=== PATIENT | female | born 1935 | race American Indian/Alaskan Native ===

== ENCOUNTER 2017-10-09 17:08 | Inpatient (IN) | payer MEDICARE, OTHER ==
[2017-10-09] MEDS ORDERED: SUBLIMAZE IV ONE (17:31)
[2017-10-09] MEDS ORDERED: NACL 0.9% 500 ML 500 ML IV ONE (17:31)
--- NOTE | 2017-10-09 17:34 | Emergency Department Report ---
<IVANDAVID - Last Filed: 10/09/17 19:58> ED General Adult HPI - General Chief complaint: Multiple Trauma Stated complaint: DISLOCATED SHOULDER Time Seen by Provider: 10/09/17 17:30 Source: patient, family, EMS (ems notes not available at time of chart dictation), RN notes reviewed Limitations: Physical Limitation - History of Present Illness Initial comments: This is an 82-year-old female who is not known to this provider previously. Her primary care doctor is Dr. David Dobson She presents to the ER with a complaint of feeling dizzy, and then falling over. She thinks that her dizziness started at 3:00 but she is not sure. She described it as a sensation of "rolling over." Prior to the event, she denied headache, neck pain, chest pain, abdominal pain, shortness of breath. After the event, the patient reported inability to get up, secondary to severe left shoulder pain and left hip pain. The pain is both sharp, and does not radiate anywhere, increases with palpation and decreases with rest. Patient is accompanied by her granddaughter at this time. Apparently the patient is staying with a cousin. As per verbal report from EMS, patient had numerous bedbugs on her. Patient reports no sensation of dizziness while in the emergency room. -: Sudden Location: left, upper extremity, lower extremity Quality: aching, sharp Consistency: constant Improves with: rest Worsens with: movement Associated Symptoms: confusion, headaches, loss of appetite, malaise, weakness, other (dizzyness). denies: chest pain, cough, diaphoresis, fever/chills, nausea /vomiting, rash, seizure, shortness of breath, syncope - Related Data Home Medications Medication Instructions Recorded Confirmed Last Taken AtorvaSTATin [Lipitor] 40 mg PO DAILY 10/09/17 10/09/17 Unknown Celecoxib [celeBREX] 200 mg PO DAILY 10/09/17 10/09/17 Unknown Lisinopril [Zestril] 40 mg PO DAILY 10/09/17 10/09/17 Unknown glipiZIDE [Glipizide] 5 mg PO DAILY 10/09/17 10/09/17 Unknown Allergies Allergy/AdvReac Type Severity Reaction Status Date / Time No Known Allergies Allergy Unverified 01/24/14 19:47 ED Review of Systems ROS: Stated complaint: DISLOCATED SHOULDER Other details as noted in HPI Constitutional: malaise Eyes: denies: eye discharge ENT: denies: epistaxis Respiratory: denies: cough Cardiovascular: denies: chest pain, syncope Gastrointestinal: denies: abdominal pain Genitourinary: denies: dysuria Musculoskeletal: arthralgia, myalgia Skin: lesions Neurological: weakness, other (dizzyness) Psychiatric: anxiety ED Past Medical Hx - Past Medical History Hx Hypertension: Yes Hx Diabetes: Yes - Social History Smoking Status: Never Smoker Substance Use Type: None - Medications Home Medications: Home Medications Medication Instructions Recorded Confirmed Last Taken Type AtorvaSTATin [Lipitor] 40 mg PO DAILY 10/09/17 10/09/17 Unknown History Celecoxib [celeBREX] 200 mg PO DAILY 10/09/17 10/09/17 Unknown History Lisinopril [Zestril] 40 mg PO DAILY 10/09/17 10/09/17 Unknown History glipiZIDE [Glipizide] 5 mg PO DAILY 10/09/17 10/09/17 Unknown History ED Physical Exam - General Limitations: Physical Limitation General appearance: alert, in distress - Head Head exam: Present: atraumatic, normocephalic - Eye Eye exam: Present: normal appearance, EOMI. Absent: nystagmus - ENT ENT exam: Present: normal exam, normal orophraynx, mucous membranes moist, normal external ear exam - Neck Neck exam: Present: normal inspection, full ROM. Absent: tenderness, meningismus - Respiratory Respiratory exam: Present: normal lung sounds bilaterally. Absent: respiratory distress - Cardiovascular Cardiovascular Exam: Present: normal rhythm, tachycardia, normal heart sounds. Absent: systolic murmur, diastolic murmur, rubs, gallop - GI/Abdominal GI/Abdominal exam: Present: soft. Absent: distended, tenderness, guarding, rebound, rigid, pulsatile mass - Extremities Exam Extremities exam: Present: normal inspection, tenderness, other (there is left shoulder tenderness. There is left hip tenderness. 2+ pulses noted in the bilateral upper, lower extremities. The compartments are soft. The pelvis is stable. 5 out of 5 canvas marker strength in the bilateral upper extremities. Plantar and dorsiflexion intact in the bilateral lower extremities. Range of motion in the left shoulder, left leg limited secondary to pain.). Absent: full ROM, pedal edema, calf tenderness - Back Exam Back exam: Present: normal inspection. Absent: tenderness, paraspinal tenderness - Neurological Exam Neurological exam: Present: alert, oriented X3, CN II-XII intact, other ( Extraocular movements intact. Tongue midline. No facial droop. Facial sensation intact to light touch in the V1, V2, V3 distribution bilaterally. 5 and 5 strength in 4 extremities.. Sensation is intact to light touch in 4 extremities.). Absent: motor sensory deficit - Psychiatric Psychiatric exam: Present: normal affect, normal mood, anxious - Skin Skin exam: Present: warm ED Course Vital Signs 10/09/17 10/09/17 10/09/17 17:10 17:15 17:31 Temperature Pulse Rate Respiratory Rate Blood Pressure 159/99 159/99 O2 Sat by Pulse 92 91 93 Oximetry 10/09/17 10/09/17 10/09/17 17:39 17:45 18:00 Temperature 97.8 F Pulse Rate 104 H Respiratory Rate Blood Pressure 159/99 159/99 159/99 O2 Sat by Pulse 98 96 93 Oximetry 10/09/17 10/09/17 10/09/17 18:15 18:31 18:45 Temperature Pulse Rate Respiratory Rate Blood Pressure 175/106 175/106 175/106 O2 Sat by Pulse 97 93 89 Oximetry 10/09/17 10/09/17 10/09/17 19:01 19:15 19:26 Temperature Pulse Rate Respiratory Rate Blood Pressure 175/106 176/99 O2 Sat by Pulse 89 84 100 Oximetry 10/09/17 10/09/17 10/09/17 19:31 19:45 20:01 Temperature Pulse Rate 102 H Respiratory 19 Rate Blood Pressure 176/99 176/99 188/96 O2 Sat by Pulse 96 93 97 Oximetry 10/09/17 10/09/17 10/09/17 20:33 20:45 21:01 Temperature Pulse Rate 86 84 93 H Respiratory 16 16 20 Rate Blood Pressure 188/96 188/96 132/92 O2 Sat by Pulse 97 98 95 Oximetry 10/09/17 10/09/17 10/09/17 21:15 21:31 21:45 Temperature Pulse Rate 82 87 89 Respiratory 18 15 12 Rate Blood Pressure 188/96 128/89 128/89 O2 Sat by Pulse 98 98 99 Oximetry 10/09/17 10/09/17 10/09/17 22:00 22:15 22:30 Temperature Pulse Rate 85 84 83 Respiratory 16 16 10 L Rate Blood Pressure 128/89 128/89 128/89 O2 Sat by Pulse 100 97 100 Oximetry 10/09/17 10/09/17 10/09/17 22:45 23:01 23:15 Temperature Pulse Rate 77 74 70 Respiratory 23 16 18 Rate Blood Pressure 128/89 143/76 143/76 O2 Sat by Pulse 99 100 100 Oximetry 10/09/17 10/09/17 10/09/17 23:31 23:45 23:59 Temperature Pulse Rate 72 87 80 Respiratory 28 H 14 31 H Rate Blood Pressure 150/72 150/72 167/80 O2 Sat by Pulse 99 100 98 Oximetry 10/10/17 10/10/17 10/10/17 00:01 00:15 00:31 Temperature Pulse Rate 80 81 68 Respiratory 31 H 31 H 15 Rate Blood Pressure 167/80 167/80 165/73 O2 Sat by Pulse 100 100 92 Oximetry 10/10/17 10/10/17 10/10/17 00:45 01:00 01:15 Temperature Pulse Rate 79 77 83 Respiratory 30 H 27 H 26 H Rate Blood Pressure 165/73 139/61 139/61 O2 Sat by Pulse 98 99 100 Oximetry 10/10/17 10/10/17 10/10/17 01:31 01:45 02:01 Temperature Pulse Rate 82 80 79 Respiratory 23 16 22 Rate Blood Pressure 148/65 148/65 143/78 O2 Sat by Pulse 100 100 100 Oximetry 10/10/17 10/10/17 10/10/17 02:15 02:31 02:45 Temperature Pulse Rate 62 86 74 Respiratory 17 12 24 Rate Blood Pressure 143/78 180/72 180/72 O2 Sat by Pulse 100 100 100 Oximetry 10/10/17 10/10/17 10/10/17 03:01 03:15 03:30 Temperature Pulse Rate 80 79 86 Respiratory 30 H 24 29 H Rate Blood Pressure 139/49 139/49 154/65 O2 Sat by Pulse 100 98 Oximetry 10/10/17 10/10/17 10/10/17 03:45 04:01 04:15 Temperature Pulse Rate 84 77 81 Respiratory 25 H 27 H 19 Rate Blood Pressure 154/65 154/65 154/65 O2 Sat by Pulse 100 99 100 Oximetry - Reevaluation(s) Reevaluation #1: 10/09/17 18:28 Differential diagnosis, including but not limited to: Arrhythmia, structural cardiac disease, TIA, stroke, intracranial injury, cervical spine injury, pneumonia, urinary tract infection, orthopedic fracture, dislocation Assessment and plan: 82-year-old female who reports preceding dizziness and then fall. She has an NIH score of 0. She is therefore not a TPA candidate. We will obtain noncontrast CT scan of the brain and cervical spine. Plain films have demonstrated left proximal humerus left proximal femur fractures. She is distally neurovascularly intact. She does not appear to have other significant injuries. The left shoulder will be placed in a sling. The left leg will be minimally manipulated. Case was discussed with orthopedic surgery, Dr. Pina who agrees to follow in consultation. Laboratory studies, CT scan of the brain, cervical spine, EKG pending. Given she has no neurologic symptoms at this time, that she has an NIH score of 0 and is not expansion dizziness at this time, she does not require TPA, and also does not require emergent angiography. 10/09/17 19:33 Reevaluation #2: 10/09/17 18:30 Patient found to have a number of crawling insects on her that looked to be like bedbugs. Isolation precautions ordered. permethrin ordered. Reevaluation #3: 10/09/17 19:58 ct head c spine pending. labs --> ? hyperkalemia, maybe hemolyzed. hyponatremia and hypomagnesemia also noted. will replete. likely hypovolemic hyponatemis. repeat chem 7 pending. care transferred to Dr Junior Saha to follow up on ekg, BMP and ct head c spine. if negative would admit to the medical service orthopedics on board would give aspirin if ct head c spine negative ED Medical Decision Making - Lab Data Result diagrams: 10/09/17 19:09 10/09/17 19:09 Vital Signs 10/09/17 17:39 Temperature 97.8 F Pulse Rate 104 H Blood Pressure 159/99 O2 Sat by Pulse 98 Oximetry - Radiology Data Radiology results: image reviewed interpreted by me: X-ray of the chest is rotated, shows left proximal humerus fracture, DJD, elevated left hemidiaphragm X-ray of the pelvis shows no pelvic fracture. There is a left proximal femur fracture. DJD is noted. X-ray of the humerus again redemonstrates left proximal humerus fracture. X-ray of the elbow shows DJD but no obvious injury. X-ray of the femur demonstrates left proximal femur fracture. DJD is noted. X-ray of the knee demonstrates orthopedic hardware, otherwise no acute disease. Critical care attestation.: If time is entered above; I have spent that time in minutes in the direct care of this critically ill patient, excluding procedure time. ED Disposition Clinical Impression: Left humeral fracture, Femur fracture, left, Hyponatremia, Hypomagnesemia, UTI (urinary tract infection) Disposition: OP ADMIT IP TO THIS HOSP Is pt being admited?: Yes Condition: Good <CHASE SAHA - Last Filed: 10/10/17 06:19> ED Medical Decision Making - Lab Data Result diagrams: 10/09/17 19:09 10/09/17 21:25 - Medical Decision Making I received this patient in sign out from Dr. Oh. He wanted me to follow- up on the CT imaging prior to admitting the patient for her orthopedic injuries. CT head was unremarkable. CT cervical spine was nondiagnostic. According to radiology, they need a better scan to be a read the cervical spine. The imaging was done on the 4 slice scanner, and started a 64 slice scanner. Patient is currently being decontaminated for bed bugs. Once she is clean, she will go for her CT cervical spine. The hospitalist has agreed to admit the patient in the meantime. ED Disposition Is pt being admited?: Yes Does the pt Need Aspirin: No
[2017-10-09] MEDS ORDERED: ACTICIN TP ONE (17:53)
[2017-10-09 19:15] LABS: Basophils % (Auto) 0.2 % (0.0-1.8); Eosinophils % (Auto) 0.3 % (0.0-4.3); Hematocrit 32.8 % (30.3-42.9); Hemoglobin 10.6 gm/dl (10.1-14.3); Mean Corpuscular HGB Conc 32 % (30-34); Mean Corpuscular Hemoglobin 28 pg (28-32); Mean Corpuscular Volume 87 fl (79-97); Monocytes # (Auto) 0.7 K/mm3 (0.0-0.8); Platelet Count 218 K/mm3 (140-440); Red Blood Count 3.77 M/mm3 (3.65-5.03); Red Cell Distribution Width 13.9 % (13.2-15.2)
[2017-10-09 19:27] LABS: INR 0.88 (0.87-1.13)
[2017-10-09 19:28] LABS: Partial Thromboplastin Time 30.4 Sec. (24.2-36.6)
[2017-10-09 19:30] LABS: Bacteria,Urine 1+ /HPF (Negative); Mucus,Urine FEW /HPF
[2017-10-09] MEDS ORDERED: MAGNESIUM SULFATE 2GM/50ML 2 GM/50 ML BAG IV ONE (19:46)
[2017-10-09 19:56] LABS: Alanine Aminotransferase TNR units/L (7-56)
--- NOTE | 2017-10-09 19:59 | XRay Report ---
FINAL REPORT PROCEDURE: XR SHOULDER 2+V LT TECHNIQUE: LEFT shoulder radiographs including AP and transscapular views. CPT 16848 HISTORY: Trauma; left shoulder pain. COMPARISON: No prior studies are available for comparison. FINDINGS: Fracture (s) and/or Dislocation(s): Posttraumatic comminuted fracture of the proximal humerus. There is mild medial displacement of the humeral shaft in relation to the humeral head with moderate overriding of fracture fragments. Joint space(s): There is moderate widening of the joint space. Narrowing and osteophytes of the acromioclavicular joint with subacromial spurring. Subchondral cystic changes of the greater tuberosity. Soft tissues: Normal . Bone mineralization: Moderate osteopenia. Foreign bodies: None . Other: Cardiomegaly. Aortic calcification. Left lower lobe linear opacities. Blunting of left costophrenic angle. IMPRESSION: Posttraumatic fracture of the left proximal humerus, with moderate widening of the joint space. Consider could be related to positioning or pseudosubluxation from hemarthrosis, difficult to completely exclude subluxation/dislocation at the glenohumeral joint, although on transscapular Y-view at least a portion of the humeral head appears to be anatomically located. Recommend attention on followup radiographs or even CT scan depending on clinical concern. Cardiomegaly. Left lower lobe linear opacities. Blunting of left costophrenic angle. Consider correlation with chest radiograph.
[2017-10-09 20:01] LABS: Bilirubin,Urine Negative (Negative); Blood,Urine Negative (Negative); Color,Urine Yellow (Yellow); Protein,Urine <15 mg/dL mg/dL (Negative); Urobilinogen,Urine < 2.0 mg/dL (<2.0)
--- NOTE | 2017-10-09 20:01 | XRay Report ---
FINAL REPORT PROCEDURE: XR HUMERUS 2+V LT TECHNIQUE: LEFT humerus radiographs, AP and lateral views. HISTORY: Trauma; left shoulder pain. COMPARISON: Left shoulder radiographs dated same day and time. FINDINGS: Fracture (s) and/or Dislocation(s): Posttraumatic comminuted fracture of the proximal humerus. There is mild medial displacement of the humeral shaft in relation to the humeral head with moderate overriding of fracture fragments. Joint space(s): There is moderate widening of the joint space. Narrowing and osteophytes at the elbow joint with small subchondral cystic changes. Tiny enthesophyte of the olecranon. Degenerative changes of the thoracic spine. Narrowing and osteophytes of the acromioclavicular joint with subacromial spurring. Subchondral cystic changes of the greater tuberosity. Soft tissues: Normal . Bone mineralization: Moderate osteopenia. Foreign bodies: None . Other: Cardiomegaly. Aortic calcification. Left lower lobe linear opacities. Blunting of left costophrenic angle. IMPRESSION: Posttraumatic fracture of the left proximal humerus, with moderate widening of the joint space. Consider could be related to positioning or pseudosubluxation from hemarthrosis, difficult to completely exclude subluxation/dislocation at the glenohumeral joint, although on transscapular Y-view at least a portion of the humeral head appears to be anatomically located. Recommend attention on followup radiographs or even CT scan depending on clinical concern. Cardiomegaly. Left lower lobe linear opacities. Blunting of left costophrenic angle. Consider correlation with chest radiograph.
[2017-10-09] MEDS ORDERED: KEFLEX PO ONE (20:04)
--- NOTE | 2017-10-09 20:13 | XRay Report ---
FINAL REPORT EXAM: XR ELBOW 2V LT HISTORY: Trauma; left elbow pain TECHNIQUE: Three views left elbow Comparison: None FINDINGS: Global osteopenia. No discrete radial head fracture. There is an irregular 1.4 x 1.0 centimeter well corticated bony density along the medial condyle. Degenerative changes of the medial and lateral left elbow with significant soft tissue reticulation. Lateral film is oblique. No definite joint effusion. IMPRESSION: 1.4 x 1.0 centimeter well corticated bony density along the medial humeral condyle. Atypical appearance for an avulsion fracture. Degenerative changes throughout the elbow. Recommend cross-sectional imaging.
--- NOTE | 2017-10-09 20:14 | XRay Report ---
FINAL REPORT EXAM: XR FEMUR 2+V LT HISTORY: Trauma; left femur pain TECHNIQUE: Four views left femur Comparison: Pelvis same day FINDINGS: There is a left femoral neck fracture with approximately 2.7 centimeter foreshortening of the left femoral length. Left knee prosthesis. Osteopenic bones. No dislocation. IMPRESSION: Left femoral neck fracture with approximately 2.7 centimeter foreshortening. No dislocation. Left knee prosthesis.
--- NOTE | 2017-10-09 20:15 | XRay Report ---
FINAL REPORT EXAM: XR KNEE 1-2V LT HISTORY: Trauma; left knee pain TECHNIQUE: Two views left knee Comparison: None FINDINGS: Global osteopenia. Left knee total joint prosthesis with patellar resurfacing. Mild soft tissue reticulation. No suprapatellar bursal effusion. No hardware failure. No acute fracture. IMPRESSION: Left knee prosthesis. No fracture.
--- NOTE | 2017-10-09 20:18 | XRay Report ---
FINAL REPORT EXAM: XR PELVIS 1-2V HISTORY: Trauma; hip pain TECHNIQUE: AP pelvis Comparison: None FINDINGS: There is a transverse left femoral neck fracture with approximately 2.7 centimeters of foreshortening. Femoral head is normally located. There is no disruption of the bony pelvic ring. Stool ball obscures the left inferior pubic ramus. Posterior sacrum is obscured by bowel gas. Patient is osteopenic. There is mild degenerative change of the right hip joint. IMPRESSION: Transverse left femoral neck fracture with approximately 2.7 centimeters of foreshortening. Osteopenia with obscured left inferior pubic ramus and sacrum, incompletely evaluated.
--- NOTE | 2017-10-09 20:22 | XRay Report ---
FINAL REPORT EXAM: XR CHEST 1V AP HISTORY: Trauma; chest pain TECHNIQUE: Frontal chest x-ray Comparison: None FINDINGS: Low lung volumes. Enlarged heart with left ventricular configuration. Patient is rotated to the left. Left basal consolidation. Bones are osteopenic. Left pleural effusion may be present. Possible nondisplaced left lateral 2nd rib fracture and left posterior 4th rib fracture, incompletely assessed. No definite pneumothorax. Probable underlying emphysema. Known left humeral head and neck fracture. IMPRESSION: Rotated exam. Known comminuted left humeral head and neck fracture. Possible nondisplaced left lateral 2nd rib fracture and left posterior 4th rib fracture. Left basal consolidation and effusion. Possible right posterior 1st rib fracture. Patient is rotated and the bones are osteopenic. Recommend CTA chest with aortic protocol to further evaluate. Based on the previous plain films and the degree of trauma, consider running the CT chest, abdomen, and pelvis at the same time for multi trauma.
[2017-10-09 20:47] LABS: Blood Urea Nitrogen TNR mg/dL (7-17)
[2017-10-09 20:48] LABS: BUN/Creatinine Ratio TNR; Calcium TNR mg/dL (8.4-10.2)
[2017-10-09 20:49] LABS: Albumin TNR g/dL (3.9-5)
[2017-10-09 20:50] LABS: Hemolysis Index TNR
--- NOTE | 2017-10-09 21:45 | Cat Scan Report ---
FINAL REPORT PROCEDURE: CT HEAD/BRAIN WO CON TECHNIQUE: Computerized tomography of the head was performed without contrast material. HISTORY: Trauma COMPARISON: No prior studies are available for comparison. FINDINGS: Grossly limited study due to patient's inability to cooperate. Skull and scalp: Normal. Paranasal sinuses: Normal. Ventricles and subarachnoid spaces: Are prominent consistent with cerebral atrophy. Cerebrum: An old lacunar infarct is noted in the right basal ganglia. There are no obvious intra-axial or extra-axial fluid collections or mass effect. Moderate degree bilateral periventricular nonspecific white matter hypodensity is noted most likely representing chronic microangiopathy. Cerebellum and brainstem: No evidence of hemorrhage, acute infarction or mass. Vasculature: Normal. Comments: None. IMPRESSION: Grossly limited study. No obvious acute intracranial abnormality. Old lacunar infarct right basal ganglia.
--- NOTE | 2017-10-09 21:47 | Cat Scan Report ---
FINAL REPORT PROCEDURE: CT CERVICAL SPINE WO CON TECHNIQUE: Computerized tomography of the cervical spine was performed from the skull base to T1 without contrast material. HISTORY: trauma COMPARISON: No prior studies are available for comparison. FINDINGS: This is a nondiagnostic study. This study needs to be repeated. IMPRESSION: Nondiagnostic study..
[2017-10-09 21:55] LABS: BUN/Creatinine Ratio 16; Blood Urea Nitrogen 11 mg/dL (7-17); Calcium 9.3 mg/dL (8.4-10.2); Hemolysis Index 1
[2017-10-09] MEDS ORDERED: DILAUDID IV ONE (22:28)
[2017-10-10] MEDS ORDERED: D50W (25GM) Syringe IV PRN (01:09)
[2017-10-10] MEDS ORDERED: TYLENOL PO PRN (01:11)
[2017-10-10] MEDS ORDERED: ZOFRAN IV PRN (01:11)
[2017-10-10] MEDS ORDERED: HumuLIN R ONE (07:46)
[2017-10-10] MEDS: HumuLIN R SUB-Q SCH ×3 (07:54→18:21)
--- NOTE | 2017-10-10 08:08 | History and Physical Report ---
CHIEF COMPLAINT: Pain on the left side of the body. Other complaint includes fall. HISTORY OF PRESENTING ILLNESS: The patient is an 82-year-old female who was noted to have felt dizzy and fell. The patient said she had a sensation of rollover and then fell. There was no prior history of chest pain before the fall. No prior history of shortness of breath, fever or chills and then the patient had problem getting up and has pain in the left shoulder area, left hip joint area and left upper extremity area. The patient denied history of dizziness prior to the fall. PAST MEDICAL HISTORY: Pertinent for hypertension, diabetes mellitus. PAST SURGICAL HISTORY: Unremarkable. FAMILY HISTORY: Family history is noncontributory. SOCIAL HISTORY: The patient does not smoke, does not drink alcohol and does not use illicit drugs. MEDICATIONS: The patient is on Lipitor 40 mg by mouth daily, Celebrex 200 mg by mouth daily, lisinopril 40 mg by mouth daily, glipizide 5 mg by mouth daily. ALLERGIES: There are no known drug allergies. REVIEW OF SYSTEMS: CONSTITUTIONAL: There is no fever, no chills, no diaphoresis. HEENT: There is no headache or sore throat. CARDIOVASCULAR SYSTEM: There is no chest pain or orthopnea. RESPIRATORY SYSTEM: There is no shortness of breath or cough. GASTROINTESTINAL SYSTEM: There is no nausea, no vomiting, no abdominal pain, diarrhea or constipation. NEUROLOGICAL SYSTEM: There is no numbness, no dizziness, no altered mental status. MUSCULOSKELETAL SYSTEM: There is pain in the left upper extremity and left lower extremity areas. There is no joint swelling. DERMATOLOGICAL SYSTEM: There is no skin rash or itching. GENITOURINARY SYSTEM: There is no dysuria, hematuria or flank pain. Rest of system review is normal. PHYSICAL EXAMINATION: GENERAL: At the time of exam, the patient was found to be alert, oriented to person and place, and not in acute distress. VITAL SIGNS: At the initial time of presentation shows temperature of 97.8 degrees Fahrenheit, pulse of 104, blood pressure 159/99 with respiratory rate of 16 and O2 sat of 98% on room air. HEENT: Show pupils to be equal, round, reactive to light and accommodating. Extraocular muscles are intact. NECK: Neck is supple with no JVD or carotid bruit. CARDIOVASCULAR SYSTEM: Show normal first and second heart sounds with no gallops or murmurs. RESPIRATORY SYSTEM: Show good air entry on both sides of the lungs with no abnormal breath sounds. GASTROINTESTINAL SYSTEM: Show abdomen to be full, soft, nontender with no organomegaly or rigidity. NEUROLOGIC: Neuro exam shows no focal deficit. MUSCULOSKELETAL SYSTEM: Show tenderness in the left upper extremity area and the left hip joint area. There is also tenderness in the left lateral chest wall area. DERMATOLOGICAL SYSTEM: Show no skin rash. GENITOURINARY SYSTEM: Shows no costovertebral angle tenderness. PERTINENT LABORATORY AND IMAGING STUDIES: The patient had x-ray of the pelvis done that shows transverse left femoral neck fracture with approximately 2.7 cm of foreshortening. There is finding of osteopenia with obscured left inferior pubic ramus and sacrum, incompletely evaluated. The patient also had x-ray of the elbow done that shows a 1.4 x 1.0 cm ____ bone density along the medial humeral condyle and the radiologist say that typical appearance for an avulsion fracture is noted. Degenerative changes throughout the elbow were seen. The patient also had chest x-ray done. The chest x-ray shows known comminuted left humeral head and neck fracture. There is possibly nondisplaced left lateral second rib fracture and left posterior fourth rib fracture. There is finding of left basilar consolidation and effusions and possible right posterior first rib fracture was noted. The patient had a CT of the head done and CT of the head shows no obvious acute intracranial abnormality, but there is finding of old lacunar infarct in the right basal ganglia. Also the patient has CT of the cervical spine done, which the radiologist said was not a good study and reported that a repeat study be done because of positioning of the patient. DIAGNOSES: 1. Multiple fractures involving the left femur and left humeral bone and also left second and fourth rib fracture and also possible right first rib fracture. 2. Urinary tract infection. 3. Dizziness. PLAN: 1. The patient will be admitted to medical/surgical floor. 2. The patient will be on Accu-Chek q. 6 hours followed by low-dose sliding scale coverage using regular insulin. 3. The patient will continue orthopedic surgical consult with Dr. Cesar Pina as requested by the Emergency Room doctor. 4. The patient will be n.p.o. until reviewed by the orthopedic surgeon this morning. 5. The patient will be on IV ceftriaxone 1 g daily for treatment of UTI. 6. The patient will be on IV morphine 2 mg every 4 hours as needed for pain and IV Zofran 4 mg every 8 hours as needed for nausea or vomiting. 7. The patient will remain on contact precaution because of suspicious for bedbug. 8. The patient's home medications will be reconciled and started appropriately when patient starts taking medications by mouth. JOB# [id number] OCN/NTS
--- NOTE | 2017-10-10 08:25 | Cat Scan Report ---
FINAL REPORT EXAM: CT CERVICAL SPINE WO CON HISTORY: trauma TECHNIQUE: CT imaging is acquired through the cervical spine without contrast. Transaxial, and coronal reformations are provided. PRIORS: 10/09/2017 FINDINGS: Diffuse demineralization. Evaluation is compromised by curvature of the cervical spine. Diffuse demineralization. Atlanto dens interval in the odontoid process appear intact no displaced fractures identified. There is extensive sequela of disc degeneration including intervertebral disc space narrowing and endplate remodeling and spondylosis. Left worse than right multilevel facet arthropathy. Enlarged thyroid gland with left-sided 11 millimeter nodule. Carotid calcifications are noted. Biapical pulmonary scarring. IMPRESSION: No acute cervical spine fracture identified. Sensitivity of fracture detection is decreased by chronic cervical spine curvature, demineralization and extensive degenerative findings.Correlate with physical exam and follow up as warranted.
[2017-10-10 11:00] LABS: BUN/Creatinine Ratio 23; Blood Urea Nitrogen 14 mg/dL (7-17); Calcium 8.8 mg/dL (8.4-10.2); Hemolysis Index 33
--- NOTE | 2017-10-10 11:31 | Event Note ---
Date: 10/10/17 Patient fell sustained multiple fractures. Will obtain Echo, put on remote Tele. She also has consolidation on CXR. Will treat for possible pneumonia.Obtain blood cultures, iv Antibiotics
[2017-10-10] MEDS: MORPHINE IV PRN (13:01)
[2017-10-10] MEDS: ROCEPHIN/NS 1 GM/50 ML 1 GM/50 ML BAG IV SCH (13:04)
[2017-10-10] MEDS: LEVAQUIN 750MG/150ML 750 MG/150 ML BAG IV SCH (14:01)
[2017-10-10] MEDS: NACL 0.9% 1000 ML 1,000 ML IV SCH (14:01)
--- NOTE | 2017-10-10 14:59 | Anesthesia Consultation ---
Anesthesia Consult and Med Hx Date of service: 10/10/17 - Airway Anesthetic Teeth Evaluation: Poor ROM Head & Neck: Adequate Mental/Hyoid Distance: Adequate Mallampati Class: Class I Intubation Access Assessment: Good - Pulmonary Exam CTA: Yes (diminished bilateral) - Cardiac Exam Anesthetic Concerns: irregular - Pre-Operative Health Status ASA Pre-Surgery Classification: ASA3 Proposed Anesthetic Plan: Epidural, Spinal - Pre-Anesthesia Comment Pre-Anesthesia Comments: Admitted for Fall, sustained multiple fractures. Left humerus, Left femur, and ribs. EKG 10/09 SR with multiple PACS. Echo 10/10 pending results. Contact precations, bedbugs - Pulmonary Hx Smoking: Yes (Quit 6 years ago, 50+ year history ) COPD: Yes (probable emphysema per CXR ) Hx Pneumonia: Yes (left basal consolidation and effusion per CXR ) - Cardiovascular System Hx Hypertension: Yes - Gastrointestinal Hx Gastroesophageal Reflux Disease: Yes - Endocrine Hx Non-Insulin Dependent Diabetes: Yes
[2017-10-10] MEDS: ZESTRIL PO SCH (16:36)
[2017-10-11] MEDS: HumuLIN R SUB-Q SCH ×4 (00:37→23:43)
--- NOTE | 2017-10-11 00:48 | Progress Note ---
Subjective Date of service: 10/11/17 Principal diagnosis: Fracture of Hip and Humerus Interval history: Pt evaluated by attending anesthesia physician. Would not recommend spinal due to signifigant smoking hx. Pt does not have a cardiac clearance for evaluation of pulmonary HTN, Aortic valve disease, or EF. Would rec. General Anesthesia to better control BP and avoid hypotension. Spinal anesthesia would drop SVR and BP and would not allow forward flow in the case of poor EF or aortic valve disease. Smokers tend to have hx of PVD and Aortic calification. Post op pain control with IV meds. Ok to proceed without cardiac clearance but would avoid triggers for hypotension , tachycardia. Maintain SVR Objective - Constitutional Vitals: Vital Signs - 12hr 10/10/17 10/10/17 10/10/17 14:00 14:17 20:27 Temperature 98.3 F 97.5 F L Pulse Rate 89 89 67 Respiratory 18 20 Rate Blood Pressure 165/70 138/52 O2 Sat by Pulse 100 100 Oximetry - Labs CBC & Chem 7: 10/09/17 19:09 10/10/17 10:18 Labs: Abnormal lab results 10/10/17 10/10/17 10/10/17 Range/Units 07:25 10:18 12:08 Sodium 128 L (137-145) mmol/L Chloride 93.2 L (98-107) mmol/L Creatinine 0.6 L (0.7-1.2) mg/dL Glucose 275 H (65-100) mg/dL POC Glucose 241 H 304 H (70-105) 10/10/17 10/11/17 Range/Units 17:08 00:28 Sodium (137-145) mmol/L Chloride (98-107) mmol/L Creatinine (0.7-1.2) mg/dL Glucose (65-100) mg/dL POC Glucose 263 H 261 H (70-105)
[2017-10-11 04:55] LABS: Basophils % (Auto) 0.1 % (0.0-1.8); Eosinophils % (Auto) 0.4 % (0.0-4.3); Hemoglobin 8.6 gm/dl (10.1-14.3); Lymphocytes # (Auto) 1.1 K/mm3 (1.2-5.4); Mean Corpuscular HGB Conc 33 % (30-34); Mean Corpuscular Hemoglobin 28 pg (28-32); Mean Corpuscular Volume 87 fl (79-97); Monocytes # (Auto) 0.7 K/mm3 (0.0-0.8); Platelet Count 170 K/mm3 (140-440); Red Blood Count 3.05 M/mm3 (3.65-5.03); Red Cell Distribution Width 13.6 % (13.2-15.2)
[2017-10-11 05:06] LABS: BUN/Creatinine Ratio 21; Blood Urea Nitrogen 15 mg/dL (7-17); Calcium 8.7 mg/dL (8.4-10.2); Hemolysis Index 1
[2017-10-11 05:08] LABS: INR 1.06 (0.87-1.13)
[2017-10-11 05:42] LABS: Hematocrit 28.9 % (30.3-42.9)
--- NOTE | 2017-10-11 08:46 | Progress Note ---
Assessment and Plan Assessment and plan: Fall with multiple fractures For surgery today Fracture left femur neck Fracture left proximal humerus rib fractures Hyponatremia. Sodium 127. Obtain Urine Osm, Urine lytes, serum Osm. Consult Nephro Diabetes mellitus type 2. Check fingerstick Qac and hs Hypertension. Monitor BP Hyperlipidemia Bed bugs. On contact isolation For surgery today Discussed with Grand daughter History Interval history: Patient fell, sustained multiple fractures, pain left shoulder Hospitalist Physical - Physical exam Narrative exam: GEN:Not in acute distress, HEENT: Normocephalic, atraumatic, Neck: supple, No JVD Lungs:Clear to auscultation bilaterally, no crackles, no wheeze Heart:S1 and S2 reg, no murmurs, rubs or gallop Abd:soft, non tender, non-distended, bowel sounds present Ext: Tender left shoulder, left arm, bruise over left arm, left arm in sling, no lubbing or cyanosis, tender left hip, abrasion/ulcer left knee Neuro:Awake,alert, no focal neurological signs Psych: Normal mood - Constitutional Vitals: Temp Pulse Resp BP Pulse Ox 97.9 F 96 H 20 113/63 100 10/11/17 08:12 10/11/17 08:13 10/11/17 08:12 10/11/17 08:13 10/11/17 08:13 Results - Labs CBC & Chem 7: 10/12/17 05:20 10/12/17 05:20 Labs: Laboratory Last Values WBC 10.1 K/mm3 (4.5-11.0) 10/11/17 04:35 RBC 3.05 M/mm3 (3.65-5.03) L 10/11/17 04:35 Hgb 8.6 gm/dl (10.1-14.3) L 10/11/17 04:35 Hct 28.9 % (30.3-42.9) L 10/11/17 04:35 MCV 87 fl (79-97) 10/11/17 04:35 MCH 28 pg (28-32) 10/11/17 04:35 MCHC 33 % (30-34) 10/11/17 04:35 RDW 13.6 % (13.2-15.2) 10/11/17 04:35 Plt Count 170 K/mm3 (140-440) 10/11/17 04:35 Lymph % (Auto) 11.0 % (13.4-35.0) L 10/11/17 04:35 [place] % (Auto) 7.0 % (0.0-7.3) 10/11/17 04:35 Eos % (Auto) 0.4 % (0.0-4.3) 10/11/17 04:35 Baso % (Auto) 0.1 % (0.0-1.8) 10/11/17 04:35 Lymph # 1.1 K/mm3 (1.2-5.4) L 10/11/17 04:35 [place] # 0.7 K/mm3 (0.0-0.8) 10/11/17 04:35 Eos # 0.0 K/mm3 (0.0-0.4) 10/11/17 04:35 Baso # 0.0 K/mm3 (0.0-0.1) 10/11/17 04:35 Seg Neutrophils % 81.5 % (40.0-70.0) H 10/11/17 04:35 Seg Neutrophils # 8.2 K/mm3 (1.8-7.7) H 10/11/17 04:35 PT 14.4 Sec. (12.2-14.9) 10/11/17 04:35 INR 1.06 (0.87-1.13) 10/11/17 04:35 APTT 30.4 Sec. (24.2-36.6) 10/09/17 19:09 Sodium 127 mmol/L (137-145) L 10/11/17 04:35 Potassium 4.6 mmol/L (3.6-5.0) 10/11/17 04:35 Chloride 94.3 mmol/L (98-107) L 10/11/17 04:35 Carbon Dioxide 21 mmol/L (22-30) L 10/11/17 04:35 Anion Gap 16 mmol/L 10/11/17 04:35 BUN 15 mg/dL (7-17) 10/11/17 04:35 Creatinine 0.7 mg/dL (0.7-1.2) 10/11/17 04:35 Estimated GFR > 60 ml/min 10/11/17 04:35 BUN/Creatinine Ratio 21 % 10/11/17 04:35 Glucose 194 mg/dL (65-100) H 10/11/17 04:35 POC Glucose 205 (70-105) H 10/11/17 06:08 Calcium 8.7 mg/dL (8.4-10.2) 10/11/17 04:35 Magnesium 1.80 mg/dL (1.7-2.3) 10/10/17 10:11 Total Bilirubin TNR 10/09/17 19:09 AST TNR 10/09/17 19:09 ALT TNR 10/09/17 19:09 Alkaline Phosphatase TNR 10/09/17 19:09 Total Creatine Kinase 138 units/L (30-135) H 10/09/17 19:09 Troponin T TNR 10/09/17 19:09 Total Protein TNR 10/09/17 19:09 Albumin TNR 10/09/17 19:09 Albumin/Globulin Ratio TNR 10/09/17 19:09 Urine Color Yellow (Yellow) 10/09/17 19:09 Urine Turbidity Clear (Clear) 10/09/17 19:09 Urine pH 7.0 (5.0-7.0) 10/09/17 19:09 Ur Specific [place] 1.005 (1.003-1.030) 10/09/17 19:09 Urine Protein <15 mg/dl mg/dL (Negative) 10/09/17 19:09 Urine Glucose (UA) Negative mg/dL (Negative) 10/09/17 19:09 Urine Ketones Negative mg/dL (Negative) 10/09/17 19:09 Urine Blood Negative (Negative) 10/09/17 19:09 Urine Nitrite Negative (Negative) 10/09/17 19:09 Ur Reducing Substances Not Reportable 10/09/17 19:09 Urine Bilirubin Negative (Negative) 10/09/17 19:09 Urine Ictotest Not Reportable 10/09/17 19:09 Urine Urobilinogen < 2.0 mg/dL (<2.0) 10/09/17 19:09 Ur Leukocyte Esterase Small (Negative) 10/09/17 19:09 Urine WBC (Auto) 41.0 /HPF (0.0-6.0) H 10/09/17 19:09 Urine RBC (Auto) 1.0 /HPF (0.0-6.0) 10/09/17 19:09 U Epithel Cells (Auto) 4.0 /HPF (0-13.0) 10/09/17 19:09 Urine Bacteria (Auto) 1+ /HPF (Negative) 10/09/17 19:09 Urine Mucus Few /HPF 10/09/17 19:09 Plasma/Serum Alcohol < 0.01 % (0-0.07) 10/09/17 21:25 C. difficile Toxin A&B Negative (Negative) 10/09/17 Unknown
[2017-10-11] MEDS: MORPHINE IV PRN (09:04)
[2017-10-11] MEDS ORDERED: TORADOL ONE (09:21)
[2017-10-11] MEDS ORDERED: MORPHINE ONE (09:21)
[2017-10-11] MEDS ORDERED: MARCAINE 0.5% 30 ML INFILTRATI ONE (09:21)
[2017-10-11] MEDS ORDERED: TRANEXAMIC ACID ONE (09:21)
[2017-10-11] MEDS ORDERED: NACL 0.9% 250ML 250 ML ONE (09:21)
[2017-10-11] MEDS ORDERED: NEOSPORIN GU IR ONE (09:22)
[2017-10-11] MEDS: ROCEPHIN/NS 1 GM/50 ML 1 GM/50 ML BAG IV SCH (10:32)
[2017-10-11] MEDS: ZESTRIL PO SCH (10:51)
[2017-10-11] MEDS ORDERED: DIPRIVAN 10 MG/ML IV ONE (11:04)
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
[2017-10-11] MEDS ORDERED: DILAUDID ONE (13:21)
[2017-10-11] MEDS ORDERED: LOPRESSOR IV ONE (13:21)
[2017-10-11] MEDS ORDERED: ZOFRAN ONE ×2 (13:24→18:15)
[2017-10-11] MEDS ORDERED: DECADRON ONE (13:24)
[2017-10-11] MEDS ORDERED: NACL 0.9% 1000 ML 1,000 ML ONE (14:26)
[2017-10-11] MEDS ORDERED: XYLOCAINE MPF 2% ONE (15:00)
[2017-10-11] MEDS ORDERED: PROVENTIL IH PRN (15:10)
[2017-10-11] MEDS ORDERED: DULCOLAX PR PRN (17:59)
[2017-10-11] MEDS ORDERED: PERCOCET 5/325 PO PRN (17:59)
[2017-10-11] MEDS ORDERED: MILK OF MAGNESIA PO PRN (17:59)
[2017-10-11] MEDS ORDERED: NORCO 5/325 PO PRN (17:59)
[2017-10-11] MEDS ORDERED: SODIUM CHLORIDE FLUSH SYRINGE 10 ML IV SCH (18:00)
[2017-10-11] MEDS ORDERED: NEO SYNEPHRINE/NS Syringe(OR USE) IV ONE (18:12)
--- NOTE | 2017-10-11 18:13 | Procedure Note ---
Date of procedure: 10/11/17 Pre-op diagnosis: displaced left femoral neck and proximal humeral neck fractures Post-op diagnosis: same Procedure: Bipolar hemiarthroplasty left hip Open reduction internal fixation left proximal humerus Procedure The patient was brought to the OR and placed on the OR table in the supine position following induction and intubation by anesthesia the patient was first turned into the right lateral decubitus position at which point the left hip and thigh were prepped and draped in the usual sterile manner. A timeout procedure was done to identify the patient and the correct operative site. A lateral incision was made centered over the greater trochanter this was taken up proximally as well as distally along the shaft of the femur incision taken down through skin and subcutaneous the fascia tariq was seen and was incised Charnley retractors were placed deep within the wound and next the end the incision was carried along the anterior surface of the proximal femur between the vastus lateralis and portions of the gluteus medius the anterior capsule was incised the hip was then internally rotated to expose the fracture site A oscillating saw was used to cut the remaining femoral neck in line with the broach following this the femoral head was retrieved using a corkscrew type device the head was measured at 45 mm next attention was turned to the proximal femur using a Performance Indicator cutter. Medullary canal was entered this was followed by reaming and broaching to a press-fit 6 following this a neutral neck and a 32 mm head along with a 45 mm bipolar cup was inserted hip was reduced and was taken through a range of motion and found to be stable next the trial components were removed the hip and proximal femur was irrigated copiously with saline solution following this the final components were inserted again a press- fit #6 with a collar followed by 32 mm head and a 45 mm bipolar cup again the hip was reduced taken through range of motion and found to be stable following this the wound again was irrigated and was then closed in a standard routine fashion. Dressings were applied following this the patient was then turned back into the supine position and placed in the beachchair position with the left arm on the OR table The left shoulder and arm was prepped and draped in the usual sterile manner and attempt at IM nail was performed a small incision was made over the lateral border of the acromion process this was taken down through skin and subcutaneous the deltoid fascia was incised and the group rotator cuff tendon was also incised a guide. A guidewire was inserted down the proximal femoral canal next phase short intramedullary nail was inserted down the proximal shaft this was followed by placement of the spiral blade however multiple attempts at stable fixation using the IM nail and spiral blade was unsuccessful due to the proximal nature of the fracture at that at this point it was decided to try a locked plate the intramedullary nail and locking screws were removed and the incision was then carried down slightly more distal along the proximal humerus via bone was exposed THE fracture was identified and reduced and it end and it into a more stable position this was held by way of multiple K wire and C-arm was brought in the fracture reduction. Anatomic next C LOC plate was inserted and secured by way of multiple locking screws into the proximal fragment as well as locking and nonlocking screws in the shaft again AP and lateral views were obtained showing good reduction of the fracture in placement of the hardware the arm was then taken through range of motion and was found to be stable following this the wound was then irrigated copiously the deltoid as well as the rotator cuff tendons were repaired primarily this was followed by routine closure of the skin and subcutaneous. Dressings were applied the patient tolerated the procedure there were no complications Anesthesia: RINA Surgeon: LINDSAY HERNANDEZ [employer] Portal Architect: MARIA TERESA SANCHEZ Estimated blood loss: other (300 mL) Pathology: none Condition: stable Disposition: PACU
[2017-10-11] MEDS ORDERED: HumuLIN R IV PRN (19:06)
[2017-10-12] MEDS: ANCEF/NS 1 GM/50 ML 1 GM/50 ML BAG IV SCH ×2 (00:39→04:15)
[2017-10-12 05:44] LABS: Hematocrit 23.1 % (30.3-42.9); Hemoglobin 7.5 gm/dl (10.1-14.3)
[2017-10-12 06:20] LABS: Calcium 8.3 mg/dL (8.4-10.2)
[2017-10-12] MEDS: HumuLIN R SUB-Q SCH ×4 (07:08→22:54)
--- NOTE | 2017-10-12 08:34 | XRay Report ---
FINAL REPORT EXAM: XR HIP 2-3V LT HISTORY: postop evaluation COMPARISONS: 10/09/2017 FINDINGS: Two portable views left hip Left hip arthroplasty appears intact. No fracture. Mild degenerative findings in the remaining imaged joint spaces. IMPRESSION: No fracture status post total left hip arthroplasty.
[2017-10-12] MEDS: ROCEPHIN/NS 1 GM/50 ML 1 GM/50 ML BAG IV SCH (10:05)
[2017-10-12] MEDS: LOVENOX SUB-Q SCH (10:06)
[2017-10-12] MEDS: LOPRESSOR PO SCH ×2 (10:07→22:53)
--- NOTE | 2017-10-12 10:13 | Progress Note ---
Subjective Principal diagnosis: Fracture of Hip and Humerus Interval history: Patient was seen today for follow-up on multiple renal related issues Events of this hospitalization noted Sodium is better but her creatinine has worsened Patient denies having any chest pain pressure or shortness of breath Vitals labs intake output medications were reviewed Social history: Reviewed Allergies: Reviewed Family history: Reviewed Physical examination HEENT: Oral mucosa moist no pallor or icterus Neck: Supple no JVD Chest: Clear to auscultation anteriorly CVS: Regular rate and rhythm S1 and S2 heard Abdomen: Soft nontender no suprapubic masses no organomegaly appreciable Extremity: Dry skin less than 1+ peripheral edema Musculoskeletal: No joint effusion noted in knees and ankle Neurological: Alert awake Dermatology: No petechial rashes Psychiatry: No evidence of any agitation and aggression noted Assessment and plan Acute kidney injury: Will discontinue Celebrex for now patient clinically also appears to be prerenal maintain hydration and follow-up Increase IV fluid to 1 25 mL an hour for now Will obtain renal ultrasonogram and obtain further labs , urine studies were not sent yesterday Hyponatremia: Appears to be improving at this time current sodium is 132 which was 127 yesterday etiology of hyponatremia appears to be multifactorial, patient clinically appears to be volume depleted Mild metabolic acidosis currently stable to monitor and follow Creatinine has increased from 0.7-1.7: Maintain IV hydration further workup of renal failure Patient was adequately counseled and educated regarding multiple renal related issues Pertinent lab findings were discussed with patient, patient does exhibit good understanding of renal issues We'll continue to follow and make recommendation from renal standpoint Objective - Vital Signs Vital signs: Vital Signs - 12hr 10/12/17 10/12/17 10/12/17 03:30 07:23 10:07 Temperature 98.4 F Pulse Rate 99 H Pulse Rate [ 104 H Right Radial] Respiratory 20 Rate Blood Pressure 134/54 149/65 O2 Sat by Pulse 100 100 Oximetry - Lab 10/12/17 05:20 10/12/17 05:20 Most recent lab results Calcium 8.3 mg/dL (8.4-10.2) L 10/12/17 05:20 Magnesium 1.80 mg/dL (1.7-2.3) 10/10/17 10:11
--- NOTE | 2017-10-12 13:55 | Progress Note ---
Assessment and Plan Assessment and plan: Fall with multiple fractures surgery yesterday Fracture left femur neck, s/p bipolar hemiarthroplasty left hip Fracture left proximal humerus, s/p ORIF rib fractures Hyponatremia. Improved, Sodium 132 today. Obtain Urine Osm, Urine lytes, serum Osm. Nephrology following COLLINS. Cr 1.7 today Diabetes mellitus type 2. Check fingerstick Qac and hs Hypertension. Monitor BP Hyperlipidemia Bed bugs. Discussed with Grand daughter at bedside yesterday. History Interval history: Patient fell, sustained multiple fractures, s/p surgery yesterday Hospitalist Physical - Physical exam Narrative exam: GEN:Not in acute distress, HEENT: Normocephalic, atraumatic, Neck: supple, No JVD Lungs:Clear to auscultation bilaterally, no crackles, no wheeze Heart:S1 and S2 reg, no murmurs, rubs or gallop Abd:soft, non tender, non-distended, bowel sounds present Ext: Tender left shoulder, left arm, bruise over left arm, left arm covered with dressing tender left hip, abrasion/ulcer left knee,dressing left hip/upper thigh Neuro:Awake,alert, no focal neurological signs Psych: Normal mood - Constitutional Vitals: Temp Pulse Resp BP Pulse Ox 98.4 F 99 H 20 149/65 100 10/12/17 07:23 10/12/17 07:23 10/12/17 07:23 10/12/17 10:07 10/12/17 07:23 Results - Labs CBC & Chem 7: 10/12/17 05:20 10/12/17 05:20 Labs: Laboratory Last Values WBC 10.1 K/mm3 (4.5-11.0) 10/11/17 04:35 RBC 3.05 M/mm3 (3.65-5.03) L 10/11/17 04:35 Hgb 7.5 gm/dl (10.1-14.3) L 10/12/17 05:20 Hct 23.1 % (30.3-42.9) L 10/12/17 05:20 MCV 87 fl (79-97) 10/11/17 04:35 MCH 28 pg (28-32) 10/11/17 04:35 MCHC 33 % (30-34) 10/11/17 04:35 RDW 13.6 % (13.2-15.2) 10/11/17 04:35 Plt Count 170 K/mm3 (140-440) 10/11/17 04:35 Lymph % (Auto) 11.0 % (13.4-35.0) L 10/11/17 04:35 [place] % (Auto) 7.0 % (0.0-7.3) 10/11/17 04:35 Eos % (Auto) 0.4 % (0.0-4.3) 10/11/17 04:35 Baso % (Auto) 0.1 % (0.0-1.8) 10/11/17 04:35 Lymph # 1.1 K/mm3 (1.2-5.4) L 10/11/17 04:35 [place] # 0.7 K/mm3 (0.0-0.8) 10/11/17 04:35 Eos # 0.0 K/mm3 (0.0-0.4) 10/11/17 04:35 Baso # 0.0 K/mm3 (0.0-0.1) 10/11/17 04:35 Seg Neutrophils % 81.5 % (40.0-70.0) H 10/11/17 04:35 Seg Neutrophils # 8.2 K/mm3 (1.8-7.7) H 10/11/17 04:35 PT 14.4 Sec. (12.2-14.9) 10/11/17 04:35 INR 1.06 (0.87-1.13) 10/11/17 04:35 APTT 30.4 Sec. (24.2-36.6) 10/09/17 19:09 Sodium 132 mmol/L (137-145) L 10/12/17 05:20 Potassium 5.0 mmol/L (3.6-5.0) 10/12/17 05:20 Chloride 97.2 mmol/L (98-107) L 10/12/17 05:20 Carbon Dioxide 21 mmol/L (22-30) L 10/12/17 05:20 Anion Gap 19 mmol/L 10/12/17 05:20 BUN 27 mg/dL (7-17) H 10/12/17 05:20 Creatinine 1.7 mg/dL (0.7-1.2) H D 10/12/17 05:20 Estimated GFR 35 ml/min 10/12/17 05:20 BUN/Creatinine Ratio 16 % 10/12/17 05:20 Glucose 284 mg/dL (65-100) H 10/12/17 05:20 POC Glucose 236 (70-105) H 10/12/17 11:56 Osmolality 290 Mosm/kg 10/12/17 12:02 Uric Acid 5.1 mg/dL (3.5-7.6) 10/12/17 12:02 Calcium 8.3 mg/dL (8.4-10.2) L 10/12/17 05:20 Magnesium 1.80 mg/dL (1.7-2.3) 10/10/17 10:11 Total Bilirubin TNR 10/09/17 19:09 AST TNR 10/09/17 19:09 ALT TNR 10/09/17 19:09 Alkaline Phosphatase TNR 10/09/17 19:09 Total Creatine Kinase 138 units/L (30-135) H 10/09/17 19:09 Troponin T TNR 10/09/17 19:09 Total Protein TNR 10/09/17 19:09 Albumin TNR 10/09/17 19:09 Albumin/Globulin Ratio TNR 10/09/17 19:09 Free T4 1.36 ng/dL (0.76-1.46) 10/12/17 12:02 Urine Color Yellow (Yellow) 10/09/17 19:09 Urine Turbidity Clear (Clear) 10/09/17 19:09 Urine pH 7.0 (5.0-7.0) 10/09/17 19:09 Ur Specific [place] 1.005 (1.003-1.030) 10/09/17 19:09 Urine Protein <15 mg/dl mg/dL (Negative) 10/09/17 19:09 Urine Glucose (UA) Negative mg/dL (Negative) 10/09/17 19:09 Urine Ketones Negative mg/dL (Negative) 10/09/17 19:09 Urine Blood Negative (Negative) 10/09/17 19:09 Urine Nitrite Negative (Negative) 10/09/17 19:09 Ur Reducing Substances Not Reportable 10/09/17 19:09 Urine Bilirubin Negative (Negative) 10/09/17 19:09 Urine Ictotest Not Reportable 10/09/17 19:09 Urine Urobilinogen < 2.0 mg/dL (<2.0) 10/09/17 19:09 Ur Leukocyte Esterase Small (Negative) 10/09/17 19:09 Urine WBC (Auto) 41.0 /HPF (0.0-6.0) H 10/09/17 19:09 Urine RBC (Auto) 1.0 /HPF (0.0-6.0) 10/09/17 19:09 U Epithel Cells (Auto) 4.0 /HPF (0-13.0) 10/09/17 19:09 Urine Bacteria (Auto) 1+ /HPF (Negative) 10/09/17 19:09 Urine Mucus Few /HPF 10/09/17 19:09 Plasma/Serum Alcohol < 0.01 % (0-0.07) 10/09/17 21:25 C. difficile Toxin A&B Negative (Negative) 10/09/17 Unknown
[2017-10-12] MEDS: LEVAQUIN 750MG/150ML 750 MG/150 ML BAG IV SCH (14:41)
[2017-10-12] MEDS: NACL 0.9% 1000 ML 1,000 ML IV SCH (14:51)
[2017-10-12] MEDS: MORPHINE IV PRN (22:54)
--- NOTE | 2017-10-13 01:27 | Ultrasound Report ---
FINAL REPORT PROCEDURE: US RENAL BILAT TECHNIQUE: Real-time sonography in multiple planes of the kidneys, ureters and urinary bladder was performed with image documentation. CPT 34682 HISTORY: lawson COMPARISON: No prior studies are available for comparison. FINDINGS: RIGHT kidney: Normal echotexture. No focal renal mass, calculus, or hydronephrosis. Length: 9.5 cm. Not identified. Bladder: Normal. IMPRESSION: Normal right kidney..
[2017-10-13 05:52] LABS: BUN/Creatinine Ratio 21; Blood Urea Nitrogen 17 mg/dL (7-17); Calcium 7.9 mg/dL (8.4-10.2); Hemolysis Index 7
[2017-10-13 06:04] LABS: Hemoglobin 6.5 gm/dl (10.1-14.3); Mean Corpuscular HGB Conc 33 % (30-34); Mean Corpuscular Hemoglobin 28 pg (28-32); Mean Corpuscular Volume 85 fl (79-97); Platelet Count 150 K/mm3 (140-440); Red Blood Count 2.28 M/mm3 (3.65-5.03); Red Cell Distribution Width 13.6 % (13.2-15.2)
[2017-10-13 06:41] LABS: Hematocrit 20.5 % (30.3-42.9)
[2017-10-13 07:34] LABS: Creatinine,Urine 60.1 mg/dL (0.1-20.0)
[2017-10-13] MEDS: HumuLIN R SUB-Q SCH ×3 (07:42→21:46)
[2017-10-13] MEDS ORDERED: NACL 0.9% 500 ML 500 ML IV ONE (08:03)
[2017-10-13] MEDS: LOPRESSOR PO SCH ×2 (09:35→21:47)
[2017-10-13] MEDS: LOVENOX SUB-Q SCH (09:35)
[2017-10-13] MEDS: NACL 0.9% 1000 ML 1,000 ML IV SCH (09:38)
--- NOTE | 2017-10-13 10:19 | Progress Note ---
Subjective Principal diagnosis: Fracture of Hip and Humerus Interval history: Patient was seen today for follow-up on multiple renal related issues doing about the same today Patient denies having any chest pain pressure or shortness of breath Vitals labs intake output medications were reviewed Social history: Reviewed Allergies: Reviewed Family history: Reviewed Physical examination HEENT: Oral mucosa moist no pallor or icterus Neck: Supple no JVD Chest: Clear to auscultation anteriorly CVS: Regular rate and rhythm S1 and S2 heard Abdomen: Soft nontender no suprapubic masses no organomegaly appreciable Extremity: Dry skin less than 1+ peripheral edema Musculoskeletal: No joint effusion noted in knees and ankle Neurological: Alert awake Dermatology: No petechial rashes Psychiatry: No evidence of any agitation and aggression noted Assessment and plan Acute kidney injury mostly prerenal patient taken off Celebrex currently renal function appears to have normalized, she should avoid Celebrex going forward Renal ultrasonogram results currently pending to follow Hyponatremia: Mild stable at this time, Anemia superior 6.5 hemoglobin patient does require packed red blood cell transfusion Poorly controlled diabetes blood sugar in the range of 2-300 Hypocalcemia may have vitamin D deficiency would suggest treating with 5000 unit once a day and check vitamin D level possibly Protein creatinine ratio suggestive of nearly 500 mg of protein in urine which could be multi-factorial Status post open reduction internal fixation of the proximal humerus, rib fracture We'll continue to follow and make recommendation from renal standpoint Objective - Vital Signs Vital signs: Vital Signs - 12hr 10/12/17 10/12/17 10/12/17 22:53 22:54 23:24 Temperature Pulse Rate 95 H Respiratory 20 18 Rate Blood Pressure 130/52 Blood Pressure [Right] O2 Sat by Pulse Oximetry 10/13/17 10/13/17 10/13/17 00:47 03:17 08:34 Temperature 98.6 F 98.1 F Pulse Rate 85 79 Respiratory 18 24 Rate Blood Pressure 135/68 Blood Pressure 137/60 [Right] O2 Sat by Pulse 98 98 100 Oximetry 10/13/17 10/13/17 09:35 09:36 Temperature Pulse Rate Respiratory Rate Blood Pressure 142/61 Blood Pressure [Right] O2 Sat by Pulse 99 Oximetry - Lab 10/13/17 04:39 10/13/17 04:39 Most recent lab results Calcium 7.9 mg/dL (8.4-10.2) L 10/13/17 04:39 Magnesium 1.80 mg/dL (1.7-2.3) 10/10/17 10:11 Urine Creatinine 60.1 mg/dL (0.1-20.0) H 10/13/17 06:00 Urine Total Protein 30 mg/dL (5-11.8) H 10/13/17 06:00
[2017-10-13] MEDS: ROCEPHIN/NS 1 GM/50 ML 1 GM/50 ML BAG IV SCH (11:17)
--- NOTE | 2017-10-13 11:43 | Progress Note ---
Assessment and Plan Assessment and plan: Fall with multiple fractures surgery 10/11/[address] Pina, Ortho Fracture left femur neck, s/p bipolar hemiarthroplasty left hip Fracture left proximal humerus, s/p ORIF rib fractures Hyponatremia. Improved, Sodium 131 today. Nephrology following COLLINS, now resolved Cr now o.7, was 1.7 yesterday Diabetes mellitus type 2. Check fingerstick Qac and hs Hypertension. Monitor BP Hyperlipidemia Bed bugs. As per records EMS saw bed bugs on her clothing on pickup. she confirms she has a bed bug issues at home Full code status Most likely dementia. Grand daughter states she has been forgetful, confused on and off. Wrist restraints Poor hearing History Interval history: Patient fell, sustained multiple fractures, s/p surgery 10/11 Agitated, pulling tubing, Less pain left shoulder Hospitalist Physical - Physical exam Narrative exam: GEN:Not in acute distress, HEENT: Normocephalic, atraumatic, Neck: supple, No JVD Lungs:Clear to auscultation bilaterally, no crackles, no wheeze Heart:S1 and S2 reg, no murmurs, rubs or gallop Abd:soft, non tender, non-distended, bowel sounds present Ext: Tender left shoulder, left arm, bruise over left arm, left arm covered with dressing tender left hip, abrasion/ulcer left knee,dressing left hip/upper thigh Neuro:Awake,alert, agitated on and off, confused, no focal neurological signs Psych: Normal mood - Constitutional Vitals: Temp Pulse Resp BP Pulse Ox 98.1 F 95 H 24 142/61 99 10/13/17 08:34 10/13/17 10:00 10/13/17 08:34 10/13/17 09:35 10/13/17 09:36 Results - Labs CBC & Chem 7: 10/13/17 04:39 10/13/17 04:39 Labs: Laboratory Last Values WBC 8.6 K/mm3 (4.5-11.0) 10/13/17 04:39 RBC 2.28 M/mm3 (3.65-5.03) L 10/13/17 04:39 Hgb 6.5 gm/dl (10.1-14.3) L 10/13/17 04:39 Hct 20.5 % (30.3-42.9) L 10/13/17 04:39 MCV 85 fl (79-97) 10/13/17 04:39 MCH 28 pg (28-32) 10/13/17 04:39 MCHC 33 % (30-34) 10/13/17 04:39 RDW 13.6 % (13.2-15.2) 10/13/17 04:39 Plt Count 150 K/mm3 (140-440) 10/13/17 04:39 Lymph % (Auto) 11.0 % (13.4-35.0) L 10/11/17 04:35 [place] % (Auto) 7.0 % (0.0-7.3) 10/11/17 04:35 Eos % (Auto) 0.4 % (0.0-4.3) 10/11/17 04:35 Baso % (Auto) 0.1 % (0.0-1.8) 10/11/17 04:35 Lymph # 1.1 K/mm3 (1.2-5.4) L 10/11/17 04:35 [place] # 0.7 K/mm3 (0.0-0.8) 10/11/17 04:35 Eos # 0.0 K/mm3 (0.0-0.4) 10/11/17 04:35 Baso # 0.0 K/mm3 (0.0-0.1) 10/11/17 04:35 Seg Neutrophils % 81.5 % (40.0-70.0) H 10/11/17 04:35 Seg Neutrophils # 8.2 K/mm3 (1.8-7.7) H 10/11/17 04:35 PT 14.4 Sec. (12.2-14.9) 10/11/17 04:35 INR 1.06 (0.87-1.13) 10/11/17 04:35 APTT 30.4 Sec. (24.2-36.6) 10/09/17 19:09 Sodium 131 mmol/L (137-145) L 10/13/17 04:39 Potassium 4.5 mmol/L (3.6-5.0) 10/13/17 04:39 Chloride 97.7 mmol/L (98-107) L 10/13/17 04:39 Carbon Dioxide 18 mmol/L (22-30) L 10/13/17 04:39 Anion Gap 20 mmol/L 10/13/17 04:39 BUN 17 mg/dL (7-17) 10/13/17 04:39 Creatinine 0.8 mg/dL (0.7-1.2) D 10/13/17 04:39 Estimated GFR > 60 ml/min 10/13/17 04:39 BUN/Creatinine Ratio 21 % 10/13/17 04:39 Glucose 196 mg/dL (65-100) H 10/13/17 04:39 POC Glucose 225 (70-105) H 10/13/17 11:26 Osmolality 290 Mosm/kg 10/12/17 12:02 Uric Acid 5.1 mg/dL (3.5-7.6) 10/12/17 12:02 Calcium 7.9 mg/dL (8.4-10.2) L 10/13/17 04:39 Magnesium 1.80 mg/dL (1.7-2.3) 10/10/17 10:11 Total Bilirubin TNR 10/09/17 19:09 AST TNR 10/09/17 19:09 ALT TNR 10/09/17 19:09 Alkaline Phosphatase TNR 10/09/17 19:09 Total Creatine Kinase 138 units/L (30-135) H 10/09/17 19:09 Troponin T TNR 10/09/17 19:09 Total Protein TNR 10/09/17 19:09 Albumin TNR 10/09/17 19:09 Albumin/Globulin Ratio TNR 10/09/17 19:09 Free T4 1.36 ng/dL (0.76-1.46) 10/12/17 12:02 Urine Color Yellow (Yellow) 10/09/17 19:09 Urine Turbidity Clear (Clear) 10/09/17 19:09 Urine pH 7.0 (5.0-7.0) 10/09/17 19:09 Ur Specific [place] 1.005 (1.003-1.030) 10/09/17 19:09 Urine Protein <15 mg/dl mg/dL (Negative) 10/09/17 19:09 Urine Glucose (UA) Negative mg/dL (Negative) 10/09/17 19:09 Urine Ketones Negative mg/dL (Negative) 10/09/17 19:09 Urine Blood Negative (Negative) 10/09/17 19:09 Urine Nitrite Negative (Negative) 10/09/17 19:09 Ur Reducing Substances Not Reportable 10/09/17 19:09 Urine Bilirubin Negative (Negative) 10/09/17 19:09 Urine Ictotest Not Reportable 10/09/17 19:09 Urine Urobilinogen < 2.0 mg/dL (<2.0) 10/09/17 19:09 Ur Leukocyte Esterase Small (Negative) 10/09/17 19:09 Urine WBC (Auto) 41.0 /HPF (0.0-6.0) H 10/09/17 19:09 Urine RBC (Auto) 1.0 /HPF (0.0-6.0) 10/09/17 19:09 U Epithel Cells (Auto) 4.0 /HPF (0-13.0) 10/09/17 19:09 Urine Bacteria (Auto) 1+ /HPF (Negative) 10/09/17 19:09 Urine Mucus Few /HPF 10/09/17 19:09 Urine Creatinine 60.1 mg/dL (0.1-20.0) H 10/13/17 06:00 Urine Total Protein 30 mg/dL (5-11.8) H 10/13/17 06:00 Plasma/Serum Alcohol < 0.01 % (0-0.07) 10/09/17 21:25 C. difficile Toxin A&B Negative (Negative) 10/09/17 Unknown
[2017-10-14] MEDS: MORPHINE IV PRN (02:20)
[2017-10-14] MEDS: NACL 0.9% 1000 ML 1,000 ML IV SCH ×2 (02:28→16:49)
--- NOTE | 2017-10-14 08:03 | XRay Report ---
LEFT SHOULDER, ONE VIEW History: Dislocated left shoulder. Findings: 3 fluoroscopic images of the left shoulder were obtained during surgery which demonstrate internal fixation of a left humeral neck fracture with metal plate and screws. Alignment is near-anatomic. Please correlate with the procedural report as needed. Impression: Open reduction and internal fixation of a left humeral fracture.
[2017-10-14] MEDS: HumuLIN R SUB-Q SCH ×4 (08:05→22:30)
[2017-10-14 08:24] LABS: Hematocrit 26.6 % (30.3-42.9); Hemoglobin 8.6 gm/dl (10.1-14.3); Mean Corpuscular HGB Conc 33 % (30-34); Mean Corpuscular Hemoglobin 28 pg (28-32); Mean Corpuscular Volume 88 fl (79-97); Platelet Count 168 K/mm3 (140-440); Red Blood Count 3.04 M/mm3 (3.65-5.03); Red Cell Distribution Width 14.6 % (13.2-15.2)
[2017-10-14 08:44] LABS: BUN/Creatinine Ratio 27; Blood Urea Nitrogen 16 mg/dL (7-17); Calcium 7.9 mg/dL (8.4-10.2); Hemolysis Index 6
--- NOTE | 2017-10-14 09:18 | Progress Note ---
Assessment and Plan Assessment * Acute kidney injury secondary to prerenal azotemia vs COX2 inhibitor - resolved --Renal u/s: right kidney nml; left not visualized * Status post ORIF of the proximal humerus * Rib fracture * Hyponatremia - resolved * Anemia * Type II DM * Hypocalcemia Plan: * Renal function has improved * Avoid NSAIDs/COX2 inhibitors * Glycemic control per primary team * Transfuse pRBC prn * Will follow peripherally Subjective Date of service: 10/14/17 Principal diagnosis: Fracture of Hip and Humerus Interval history: Patient has no complaints. Objective - Vital Signs Vital signs: Vital Signs - 12hr 10/13/17 10/13/17 10/13/17 21:46 21:47 22:00 Temperature Pulse Rate 97 H 97 H Pulse Rate [ 86 Left Radial] Respiratory 18 18 Rate Blood Pressure 132/51 Blood Pressure [Right] O2 Sat by Pulse 100 Oximetry 10/13/17 10/13/17 10/13/17 23:25 23:28 23:40 Temperature 99.2 F 99.1 F 98.7 F Pulse Rate 80 97 H 89 Pulse Rate [ Left Radial] Respiratory 20 20 20 Rate Blood Pressure 104/51 125/52 108/55 Blood Pressure [Right] O2 Sat by Pulse 95 99 Oximetry 10/14/17 10/14/17 10/14/17 00:10 00:40 01:10 Temperature 99.1 F 98.3 F 98.8 F Pulse Rate 97 H 83 82 Pulse Rate [ Left Radial] Respiratory 20 20 20 Rate Blood Pressure 129/60 110/50 140/63 Blood Pressure [Right] O2 Sat by Pulse 97 95 Oximetry 10/14/17 10/14/17 10/14/17 01:27 01:40 02:09 Temperature 98.0 F 98.9 F 98.5 F Pulse Rate 91 H 80 77 Pulse Rate [ Left Radial] Respiratory 16 20 20 Rate Blood Pressure 102/45 126/56 142/55 Blood Pressure [Right] O2 Sat by Pulse 93 96 Oximetry 10/14/17 10/14/17 10/14/17 02:20 02:50 05:00 Temperature Pulse Rate 93 H Pulse Rate [ Left Radial] Respiratory 20 18 Rate Blood Pressure Blood Pressure [Right] O2 Sat by Pulse Oximetry 10/14/17 10/14/17 10/14/17 07:06 07:30 08:49 Temperature 97.9 F 97.9 F Pulse Rate 92 H 92 H Pulse Rate [ 92 H Left Radial] Respiratory 18 18 18 Rate Blood Pressure 151/71 Blood Pressure 151/71 [Right] O2 Sat by Pulse 99 99 99 Oximetry - General Appearance General appearance: well-developed, well-nourished EENT: ATNC Respiratory: Present: Clear to Ascultation Cardiology: regular, S1S2 Gastrointestinal: normal, no tenderness, no distended Integumentary: warm and dry Neurologic: other (hard of hearing) Musculoskeletal: other (no edeema) Psychiatric: cooperative - Lab 10/14/17 07:57 10/14/17 07:57 Most recent lab results Calcium 7.9 mg/dL (8.4-10.2) L 10/14/17 07:57 Magnesium 1.80 mg/dL (1.7-2.3) 10/10/17 10:11 Urine Creatinine 60.1 mg/dL (0.1-20.0) H 10/13/17 06:00 Urine Total Protein 30 mg/dL (5-11.8) H 10/13/17 06:00
[2017-10-14] MEDS: ROCEPHIN/NS 1 GM/50 ML 1 GM/50 ML BAG IV SCH (09:23)
[2017-10-14] MEDS: LOVENOX SUB-Q SCH (09:28)
[2017-10-14] MEDS: LOPRESSOR PO SCH ×2 (09:28→22:30)
[2017-10-14] MEDS ORDERED: LEVAQUIN PO SCH (10:00)
--- NOTE | 2017-10-14 12:36 | Progress Note ---
Assessment and Plan Assessment and plan: Fall with multiple fractures surgery 10/11/[address] Pina, Ortho. Physical therapy to see. Fracture left femur neck, s/p bipolar hemiarthroplasty left hip Fracture left proximal humerus, s/p ORIF rib fractures Hyponatremia. Improved, Sodium 135 Nephrology following [place]INS, now resolved Cr now 0.6 Diabetes mellitus type 2. Check fingerstick Qac and hs Hypertension. Monitor BP Hyperlipidemia Bed bugs. As per records EMS saw bed bugs on her clothing on pickup. she confirms she has bed bug issues at home Full code status Most likely dementia. Grand daughter states she has been forgetful, confused on and off. Wrist restraints Poor hearing History Interval history: Patient fell, sustained multiple fractures, s/p surgery 10/11 Agitated, pulling tubing, Less pain left shoulder Hospitalist Physical - Physical exam Narrative exam: GEN:Not in acute distress, HEENT: Normocephalic, atraumatic, Neck: supple, No JVD Lungs:Clear to auscultation bilaterally, no crackles, no wheeze Heart:S1 and S2 reg, no murmurs, rubs or gallop Abd:soft, non tender, non-distended, bowel sounds present Ext: Tender left shoulder, left arm, bruise over left arm, left arm covered with dressing tender left hip, abrasion/ulcer left knee,dressing left hip/upper thigh Neuro:Awake,alert, agitated on and off, confused, no focal neurological signs Psych: Normal mood - Constitutional Vitals: Temp Pulse Resp BP Pulse Ox 97.9 F 68 18 151/71 99 10/14/17 07:30 10/14/17 10:00 10/14/17 08:49 10/14/17 09:28 10/14/17 08:49 Results - Labs CBC & Chem 7: 10/14/17 07:57 10/14/17 07:57 Labs: Laboratory Last Values WBC 11.7 K/mm3 (4.5-11.0) H 10/14/17 07:57 RBC 3.04 M/mm3 (3.65-5.03) L 10/14/17 07:57 Hgb 8.6 gm/dl (10.1-14.3) L 10/14/17 07:57 Hct 26.6 % (30.3-42.9) L D 10/14/17 07:57 MCV 88 fl (79-97) 10/14/17 07:57 MCH 28 pg (28-32) 10/14/17 07:57 MCHC 33 % (30-34) 10/14/17 07:57 RDW 14.6 % (13.2-15.2) 10/14/17 07:57 Plt Count 168 K/mm3 (140-440) 10/14/17 07:57 Lymph % (Auto) 11.0 % (13.4-35.0) L 10/11/17 04:35 [place] % (Auto) 7.0 % (0.0-7.3) 10/11/17 04:35 Eos % (Auto) 0.4 % (0.0-4.3) 10/11/17 04:35 Baso % (Auto) 0.1 % (0.0-1.8) 10/11/17 04:35 Lymph # 1.1 K/mm3 (1.2-5.4) L 10/11/17 04:35 [place] # 0.7 K/mm3 (0.0-0.8) 10/11/17 04:35 Eos # 0.0 K/mm3 (0.0-0.4) 10/11/17 04:35 Baso # 0.0 K/mm3 (0.0-0.1) 10/11/17 04:35 Seg Neutrophils % 81.5 % (40.0-70.0) H 10/11/17 04:35 Seg Neutrophils # 8.2 K/mm3 (1.8-7.7) H 10/11/17 04:35 PT 14.4 Sec. (12.2-14.9) 10/11/17 04:35 INR 1.06 (0.87-1.13) 10/11/17 04:35 APTT 30.4 Sec. (24.2-36.6) 10/09/17 19:09 Sodium 135 mmol/L (137-145) L 10/14/17 07:57 Potassium 4.0 mmol/L (3.6-5.0) 10/14/17 07:57 Chloride 104.0 mmol/L (98-107) 10/14/17 07:57 Carbon Dioxide 19 mmol/L (22-30) L 10/14/17 07:57 Anion Gap 16 mmol/L 10/14/17 07:57 BUN 16 mg/dL (7-17) 10/14/17 07:57 Creatinine 0.6 mg/dL (0.7-1.2) L 10/14/17 07:57 Estimated GFR > 60 ml/min 10/14/17 07:57 BUN/Creatinine Ratio 27 % 10/14/17 07:57 Glucose 161 mg/dL (65-100) H 10/14/17 07:57 POC Glucose 253 (70-105) H 10/14/17 11:32 Osmolality 290 Mosm/kg 10/12/17 12:02 Uric Acid 5.1 mg/dL (3.5-7.6) 10/12/17 12:02 Calcium 7.9 mg/dL (8.4-10.2) L 10/14/17 07:57 Magnesium 1.80 mg/dL (1.7-2.3) 10/10/17 10:11 Total Bilirubin TNR 10/09/17 19:09 AST TNR 10/09/17 19:09 ALT TNR 10/09/17 19:09 Alkaline Phosphatase TNR 10/09/17 19:09 Total Creatine Kinase 138 units/L (30-135) H 10/09/17 19:09 Troponin T TNR 10/09/17 19:09 Total Protein TNR 10/09/17 19:09 Albumin TNR 10/09/17 19:09 Albumin/Globulin Ratio TNR 10/09/17 19:09 Free T4 1.36 ng/dL (0.76-1.46) 10/12/17 12:02 Urine Color Yellow (Yellow) 10/09/17 19:09 Urine Turbidity Clear (Clear) 10/09/17 19:09 Urine pH 7.0 (5.0-7.0) 10/09/17 19:09 Ur Specific [place] 1.005 (1.003-1.030) 10/09/17 19:09 Urine Protein <15 mg/dl mg/dL (Negative) 10/09/17 19:09 Urine Glucose (UA) Negative mg/dL (Negative) 10/09/17 19:09 Urine Ketones Negative mg/dL (Negative) 10/09/17 19:09 Urine Blood Negative (Negative) 10/09/17 19:09 Urine Nitrite Negative (Negative) 10/09/17 19:09 Ur Reducing Substances Not Reportable 10/09/17 19:09 Urine Bilirubin Negative (Negative) 10/09/17 19:09 Urine Ictotest Not Reportable 10/09/17 19:09 Urine Urobilinogen < 2.0 mg/dL (<2.0) 10/09/17 19:09 Ur Leukocyte Esterase Small (Negative) 10/09/17 19:09 Urine WBC (Auto) 41.0 /HPF (0.0-6.0) H 10/09/17 19:09 Urine RBC (Auto) 1.0 /HPF (0.0-6.0) 10/09/17 19:09 U Epithel Cells (Auto) 4.0 /HPF (0-13.0) 10/09/17 19:09 Urine Bacteria (Auto) 1+ /HPF (Negative) 10/09/17 19:09 Urine Mucus Few /HPF 10/09/17 19:09 Urine Creatinine 60.1 mg/dL (0.1-20.0) H 10/13/17 06:00 Urine Total Protein 30 mg/dL (5-11.8) H 10/13/17 06:00 Plasma/Serum Alcohol < 0.01 % (0-0.07) 10/09/17 21:25 C. difficile Toxin A&B Negative (Negative) 10/09/17 Unknown Blood Type O POSITIVE 10/13/17 12:09 Antibody Screen Negative 10/13/17 12:09 Crossmatch See Detail 10/13/17 12:09
--- NOTE | 2017-10-14 16:18 | Progress Note ---
Assessment and Plan Status post left bipolar hip replacement and open reduction internal fixation left proximal humerus fracture Doing okay Continue physical therapy and observation Subjective Date of service: 10/14/17 Principal diagnosis: Fracture of Hip and Humerus Interval history: Patient resting comfortably in bed eating lunch Objective Vital signs: Vital Signs - 12hr 10/14/17 10/14/17 10/14/17 05:00 07:06 07:30 Temperature 97.9 F 97.9 F Pulse Rate 93 H 92 H 92 H Pulse Rate [ Left Radial] Respiratory 18 18 Rate Blood Pressure 151/71 Blood Pressure 151/71 [Right] O2 Sat by Pulse 99 99 Oximetry 10/14/17 10/14/17 09:28 10:00 Temperature Pulse Rate 92 H 68 Pulse Rate [ 68 Left Radial] Respiratory 18 Rate Blood Pressure 151/71 Blood Pressure [Right] O2 Sat by Pulse 99 Oximetry - Labs CBC & BMP: 10/14/17 07:57 10/14/17 07:57 Labs: Abnormal lab results 10/13/17 10/13/17 10/13/17 Range/Units 12:09 16:46 21:07 WBC (4.5-11.0) K/mm3 RBC (3.65-5.03) M/mm3 Hgb (10.1-14.3) gm/dl Hct (30.3-42.9) % Sodium (137-145) mmol/L Carbon Dioxide (22-30) mmol/L Creatinine (0.7-1.2) mg/dL Glucose (65-100) mg/dL POC Glucose 184 H 249 H (70-105) Calcium (8.4-10.2) mg/dL Crossmatch See Detail 10/14/17 10/14/17 10/14/17 Range/Units 07:17 07:57 07:57 WBC 11.7 H (4.5-11.0) K/mm3 RBC 3.04 L (3.65-5.03) M/mm3 Hgb 8.6 L (10.1-14.3) gm/dl Hct 26.6 L D (30.3-42.9) % Sodium 135 L (137-145) mmol/L Carbon Dioxide 19 L (22-30) mmol/L Creatinine 0.6 L (0.7-1.2) mg/dL Glucose 161 H (65-100) mg/dL POC Glucose 172 H (70-105) Calcium 7.9 L (8.4-10.2) mg/dL Crossmatch 10/14/17 Range/Units 11:32 WBC (4.5-11.0) K/mm3 RBC (3.65-5.03) M/mm3 Hgb (10.1-14.3) gm/dl Hct (30.3-42.9) % Sodium (137-145) mmol/L Carbon Dioxide (22-30) mmol/L Creatinine (0.7-1.2) mg/dL Glucose (65-100) mg/dL POC Glucose 253 H (70-105) Calcium (8.4-10.2) mg/dL Crossmatch
[2017-10-15] MEDS: MORPHINE IV PRN (00:16)
[2017-10-15 06:21] LABS: BUN/Creatinine Ratio 18; Blood Urea Nitrogen 11 mg/dL (7-17); Hemolysis Index 11
[2017-10-15 06:27] LABS: Hematocrit 26.7 % (30.3-42.9); Hemoglobin 8.7 gm/dl (10.1-14.3); Mean Corpuscular HGB Conc 33 % (30-34); Mean Corpuscular Hemoglobin 28 pg (28-32); Mean Corpuscular Volume 86 fl (79-97); Platelet Count 182 K/mm3 (140-440); Red Blood Count 3.11 M/mm3 (3.65-5.03); Red Cell Distribution Width 14.2 % (13.2-15.2)
[2017-10-15] MEDS: LOVENOX SUB-Q SCH (10:00)
[2017-10-15] MEDS: LOPRESSOR PO SCH (10:01)
[2017-10-15] MEDS: HumuLIN R SUB-Q SCH ×3 (10:03→17:56)
[2017-10-15] MEDS: ROCEPHIN/NS 1 GM/50 ML 1 GM/50 ML BAG IV SCH (10:08)
[2017-10-15] MEDS: NACL 0.9% 1000 ML 1,000 ML IV SCH (10:13)
--- NOTE | 2017-10-15 11:22 | Progress Note ---
Assessment and Plan Assessment and plan: Fall with multiple fractures surgery 10/11/[address] Pina, Ortho. Physical therapy to see. Fracture left femur neck, s/p bipolar hemiarthroplasty left hip Fracture left proximal humerus, s/p ORIF rib fractures Hyponatremia. Improved, Sodium 135 Nephrology following COLLINS, now resolved Cr now 0.6 Diabetes mellitus type 2. Check fingerstick Qac and hs Hypertension. Monitor BP Hyperlipidemia Bed bugs. As per records EMS saw bed bugs on her clothing on pickup. she confirms she has bed bug issues at home Full code status Most likely dementia. Grand daughter states she has been forgetful, confused on and off. Wrist restraints Poor hearing History Interval history: Patient fell, sustained multiple fractures, s/p surgery 10/11 Agitated, pulling tubing, Less pain left shoulder Hospitalist Physical - Constitutional Vitals: Temp Pulse Resp BP Pulse Ox 98.3 F 70 20 149/69 97 10/15/17 07:48 10/15/17 10:01 10/15/17 07:48 10/15/17 10:01 10/15/17 08:49 Results - Labs CBC & Chem 7: 10/15/17 05:36 10/15/17 05:36 Labs: Laboratory Last Values WBC 10.5 K/mm3 (4.5-11.0) 10/15/17 05:36 RBC 3.11 M/mm3 (3.65-5.03) L 10/15/17 05:36 Hgb 8.7 gm/dl (10.1-14.3) L 10/15/17 05:36 Hct 26.7 % (30.3-42.9) L 10/15/17 05:36 MCV 86 fl (79-97) 10/15/17 05:36 MCH 28 pg (28-32) 10/15/17 05:36 MCHC 33 % (30-34) 10/15/17 05:36 RDW 14.2 % (13.2-15.2) 10/15/17 05:36 Plt Count 182 K/mm3 (140-440) 10/15/17 05:36 Lymph % (Auto) 11.0 % (13.4-35.0) L 10/11/17 04:35 Conway % (Auto) 7.0 % (0.0-7.3) 10/11/17 04:35 Eos % (Auto) 0.4 % (0.0-4.3) 10/11/17 04:35 Baso % (Auto) 0.1 % (0.0-1.8) 10/11/17 04:35 Lymph # 1.1 K/mm3 (1.2-5.4) L 10/11/17 04:35 Conway # 0.7 K/mm3 (0.0-0.8) 10/11/17 04:35 Eos # 0.0 K/mm3 (0.0-0.4) 10/11/17 04:35 Baso # 0.0 K/mm3 (0.0-0.1) 10/11/17 04:35 Seg Neutrophils % 81.5 % (40.0-70.0) H 10/11/17 04:35 Seg Neutrophils # 8.2 K/mm3 (1.8-7.7) H 10/11/17 04:35 PT 14.4 Sec. (12.2-14.9) 10/11/17 04:35 INR 1.06 (0.87-1.13) 10/11/17 04:35 APTT 30.4 Sec. (24.2-36.6) 10/09/17 19:09 Sodium 134 mmol/L (137-145) L 10/15/17 05:36 Potassium 3.9 mmol/L (3.6-5.0) 10/15/17 05:36 Chloride 102.6 mmol/L (98-107) 10/15/17 05:36 Carbon Dioxide 19 mmol/L (22-30) L 10/15/17 05:36 Anion Gap 16 mmol/L 10/15/17 05:36 BUN 11 mg/dL (7-17) 10/15/17 05:36 Creatinine 0.6 mg/dL (0.7-1.2) L 10/15/17 05:36 Estimated GFR > 60 ml/min 10/15/17 05:36 BUN/Creatinine Ratio 18 % 10/15/17 05:36 Glucose 170 mg/dL (65-100) H 10/15/17 05:36 POC Glucose 185 (70-105) H 10/15/17 09:16 Osmolality 290 Mosm/kg 10/12/17 12:02 Uric Acid 5.1 mg/dL (3.5-7.6) 10/12/17 12:02 Calcium 8.0 mg/dL (8.4-10.2) L 10/15/17 05:36 Magnesium 1.80 mg/dL (1.7-2.3) 10/10/17 10:11 Total Bilirubin TNR 10/09/17 19:09 AST TNR 10/09/17 19:09 ALT TNR 10/09/17 19:09 Alkaline Phosphatase TNR 10/09/17 19:09 Total Creatine Kinase 138 units/L (30-135) H 10/09/17 19:09 Troponin T TNR 10/09/17 19:09 Total Protein TNR 10/09/17 19:09 Albumin TNR 10/09/17 19:09 Albumin/Globulin Ratio TNR 10/09/17 19:09 Free T4 1.36 ng/dL (0.76-1.46) 10/12/17 12:02 Urine Color Yellow (Yellow) 10/09/17 19:09 Urine Turbidity Clear (Clear) 10/09/17 19:09 Urine pH 7.0 (5.0-7.0) 10/09/17 19:09 Ur Specific Niland 1.005 (1.003-1.030) 10/09/17 19:09 Urine Protein <15 mg/dl mg/dL (Negative) 10/09/17 19:09 Urine Glucose (UA) Negative mg/dL (Negative) 10/09/17 19:09 Urine Ketones Negative mg/dL (Negative) 10/09/17 19:09 Urine Blood Negative (Negative) 10/09/17 19:09 Urine Nitrite Negative (Negative) 10/09/17 19:09 Ur Reducing Substances Not Reportable 10/09/17 19:09 Urine Bilirubin Negative (Negative) 10/09/17 19:09 Urine Ictotest Not Reportable 10/09/17 19:09 Urine Urobilinogen < 2.0 mg/dL (<2.0) 10/09/17 19:09 Ur Leukocyte Esterase Small (Negative) 10/09/17 19:09 Urine WBC (Auto) 41.0 /HPF (0.0-6.0) H 10/09/17 19:09 Urine RBC (Auto) 1.0 /HPF (0.0-6.0) 08/15/18 19:09 U Epithel Cells (Auto) 4.0 /HPF (0-13.0) 10/09/17 19:09 Urine Bacteria (Auto) 1+ /HPF (Negative) 10/09/17 19:09 Urine Mucus Few /HPF 10/09/17 19:09 Urine Creatinine 60.1 mg/dL (0.1-20.0) H 10/13/17 06:00 Urine Total Protein 30 mg/dL (5-11.8) H 10/13/17 06:00 Plasma/Serum Alcohol < 0.01 % (0-0.07) 10/09/17 21:25 C. difficile Toxin A&B Negative (Negative) 10/09/17 Unknown Blood Type O POSITIVE 10/13/17 12:09 Antibody Screen Negative 10/13/17 12:09 Crossmatch See Detail 10/13/17 12:09
--- NOTE | 2017-10-15 15:25 | Discharge Summary ---
Providers - Providers Date of Admission: 10/10/17 01:07 Attending physician: DREAD ROY MD 10/09/17 17:51 Consult to Physician [CONS] Urgent Comment: DR HERNANDEZ NOTIFIED [id number] Consulting Provider: LINDSAY HERNANDEZ Physician Instructions: Reason For Exam: fracture 10/11/17 07:52 Consult to Physician [CONS] Routine Comment: called answ. [email or web address] spoke to tam/ chloe Consulting Provider: ANNAMARIA MCGEE Physician Instructions: Reason For Exam: hyponatremia 10/11/17 09:00 Consult to Wound/ET Nurse [CONS] Routine Reason For Exam: wound eval 10/11/17 18:01 Physical Therapy Evaluation and Treat [CONS] Routine Comment: Reason For Exam: postop evaluation Weight bearing status?: Full wt bearing Assistive devices?: Yes If so list: Walker 10/13/17 09:48 Occupational Therapy Evaluate and Treat [CONS] Routine Comment: 20% weightbearing Reason For Exam: fractured left humerus 10/13/17 17:29 Speech Therapy Evaluation and Treat [CONS] Routine Reason For Exam: Holding food in mouth Primary care physician: [employer] ENGINEER Hospitalization Condition: Good Disposition: DC-30 STILL A PATIENT Core Measure Documentation - Palliative Care Palliative Care/ Comfort Measures: Not Applicable Exam - Constitutional Vitals: Temp Pulse Resp BP Pulse Ox 98.3 F 70 20 149/69 100 10/15/17 07:48 10/15/17 10:01 10/15/17 07:48 10/15/17 10:01 10/15/17 10:00 Plan Follow up with: PRIMARY MD GINNY [Primary Care Provider] - 3-5 Days Prescriptions: HYDROcodone/APAP 5-325 [Pindall 5-325 mg TAB] 1 each PO Q6H PRN #7 tablet PRN Reason: Pain, Moderate (4-6)
[2017-10-15 17:54] VITALS: BP 140/58
== END 2017-10-15 19:30 | DRG 469 ==
LOC: ED 17:08 → 2B-ACE 10-10 01:07
PROVIDERS: ADMIT Internal Medicine; ATTEND Internal Medicine
PROC: 0SRS01A Replacement of Left Hip Joint, Femoral Surface with Metal Synthetic Substitute, Uncemented, Open Approach (ICD-10-PCS; principal; 2017-10-11)
PROC: 0PS Upper Bones, Reposition (ICD-10-PCS; 2017-10-11)
PROC: 30233N1 Transfusion of Nonautologous Red Blood Cells into Peripheral Vein, Percutaneous Approach (ICD-10-PCS; 2017-10-13)
DX: S42.202A Unspecified fracture of upper end of left humerus, initial encounter for closed fracture (principal); S72.002A Fracture of unspecified part of neck of left femur, initial encounter for closed fracture; S22.42XA Multiple fractures of ribs, left side, initial encounter for closed fracture; N39.0 Urinary tract infection, site not specified; E87.1 Hypo-osmolality and hyponatremia; N17.9 Acute kidney failure, unspecified; I10 Essential (primary) hypertension; E11.9 Type 2 diabetes mellitus without complications; E87.6 Hypokalemia; E83.42 Hypomagnesemia; W18.39XA Other fall on same level, initial encounter; E78.5 Hyperlipidemia, unspecified; D64.9 Anemia, unspecified; E83.51 Hypocalcemia; K21.9 Gastro-esophageal reflux disease without esophagitis; J44.9 Chronic obstructive pulmonary disease, unspecified; Y93.89 Activity, other specified; Y92.89 Other specified places as the place of occurrence of the external cause; Z79.899 Other long term (current) drug therapy; Z87.828 Personal history of other (healed) physical injury and trauma; Z87.891 Personal history of nicotine dependence; Z87.01 Personal history of pneumonia (recurrent)
CPT/HCPCS: 36415; 70450; 71045; 72125; 72170; 76770; 80048; 80053; 80320; 81001; 82550; 82570; 82962; 83735; 83930; 84156; 84439; 84550; 85014; 85018; 85025; 85027; 85610; 85730; 86850; 86900; 86901; 86920; 87040; 87086; 87324; 93005; 93010; 93306; 94760; A9270-GY; C1713; C1769; C1776; G0480; G8978-GP; G8979-GP; G8987-GO; G8988-GO; G8989-GO; J0690; J0696; J1100; J1170; J1650; J1815; J1885; J1956; J2270; J2370; J2405; J2704; J3010; J3475; J7030; J7040; J7050; P9016

== ENCOUNTER 2017-12-04 06:25 | Day surgery (SDC) | payer MEDICARE, OTHER ==
[2017-12-04] MEDS ORDERED: XYLOCAINE MPF 2% ONE (07:15)
[2017-12-04] MEDS ORDERED: DIPRIVAN 10 MG/ML IV ONE (07:15)
[2017-12-04] MEDS ORDERED: SUBLIMAZE ONE (07:16)
[2017-12-04 07:32] LABS: Basophils % (Auto) 0.5 % (0.0-1.8); Eosinophils # (Auto) 0.3 K/mm3 (0.0-0.4); Eosinophils % (Auto) 3.8 % (0.0-4.3); Hematocrit 33.5 % (30.3-42.9); Hemoglobin 10.6 gm/dl (10.1-14.3); Lymphocytes # (Auto) 1.7 K/mm3 (1.2-5.4); Lymphocytes % (Auto) 22.2 % (13.4-35.0); Mean Corpuscular HGB Conc 32 % (30-34); Mean Corpuscular Hemoglobin 27 pg (28-32); Mean Corpuscular Volume 86 fl (79-97); Monocytes # (Auto) 0.7 K/mm3 (0.0-0.8); Monocytes % (Auto) 8.6 % (0.0-7.3); Platelet Count 224 K/mm3 (140-440); Red Blood Count 3.91 M/mm3 (3.65-5.03); Red Cell Distribution Width 15.1 % (13.2-15.2)
[2017-12-04] MEDS ORDERED: NACL 0.9% 1000 ML 1,000 ML IV SCH (07:34)
--- NOTE | 2017-12-04 07:45 | Anesthesia Consultation ---
Anesthesia Consult and Med Hx Date of service: 12/04/17 - Airway Anesthetic Teeth Evaluation: Poor (missing all but three chipped and eroded teeth) ROM Head & Neck: Adequate Mental/Hyoid Distance: Adequate Mallampati Class: Class III Intubation Access Assessment: Probably Good - Pulmonary Exam CTA: Yes - Cardiac Exam Cardiac Exam: No Murmur - Pre-Operative Health Status ASA Pre-Surgery Classification: ASA3 Proposed Anesthetic Plan: General - Pre-Anesthesia Comment Pre-Anesthesia Comments: Patient tolerates 4 METS. Currently in rehab status post surgery from approximately 4 weeks prior. - Pulmonary Hx Smoking: Yes (STOPPED X 6 YRS- SMOKED X 50 YRS) COPD: Yes (PER HX ( NO MEDS)) Hx Pneumonia: Yes (09/2017- RESOLVED) Hx Sleep Apnea: No (ANILA PRE SCREEN LOW RISK.) - Cardiovascular System Hx Hypertension: Yes (X 10 YRS) - Gastrointestinal Hx Gastroesophageal Reflux Disease: Yes - Endocrine Hx Non-Insulin Dependent Diabetes: Yes - Hematic Hx Anemia: Yes - Other Systems Hx Cancer: No
--- NOTE | 2017-12-04 07:45 | Anesthesia Day of Surgery ---
Anesthesia Day of Surgery - Day of Surgery Patient Examined: Yes Patient H&P Reviewed: Yes Patient is NPO: Yes
[2017-12-04] MEDS ORDERED: MORPHINE IV PRN ×2 (07:46)
[2017-12-04] MEDS ORDERED: DEMEROL IV PRN (07:46)
[2017-12-04] MEDS ORDERED: ZOFRAN IV PRN (07:46)
[2017-12-04] MEDS ORDERED: NARCAN 0.4 MG/1 ML IV PRN (07:46)
[2017-12-04 07:47] LABS: Alanine Aminotransferase 17 units/L (7-56); Albumin 3.6 g/dL (3.9-5); BUN/Creatinine Ratio 28; Blood Urea Nitrogen 22 mg/dL (7-17); Calcium 9.5 mg/dL (8.4-10.2); Hemolysis Index 9
[2017-12-04] MEDS ORDERED: ANCEF/STERILE WATER 2 GM/20 ML IV NR (07:57)
[2017-12-04] MEDS ORDERED: MARCAINE 0.5% INFILTRATI ONE ×3 (07:57→09:02)
[2017-12-04] MEDS ORDERED: DECADRON ONE (08:33)
[2017-12-04] MEDS ORDERED: ZOFRAN ONE (08:33)
--- NOTE | 2017-12-04 09:51 | XRay Report ---
LEFT SHOULDER, ONE VIEW History: Left humerus fracture. Findings: 2 fluoroscopic AP images of the left shoulder region were obtained during internal fixation of a left humeral neck fracture. Alignment is anatomic on the final image. Please correlate with the procedural report by Dr. Rich as needed. Impression: Open reduction and internal fixation of a left humeral neck fracture.
--- NOTE | 2017-12-04 09:59 | Procedure Note ---
Date of procedure: 12/04/17 Pre-op diagnosis: hardware irritation left proximal humerus Post-op diagnosis: same Procedure: Removal of hardware left proximal humerus Procedure The patient was brought to the OR and placed on the OR table in supine position following induction and intubation by anesthesia the patient's left upper extremity was prepped and draped in the usual sterile manner. A timeout procedure was done to identify the patient and the correct operative site. C- arm fluoroscopy was used to locate the area of the proximal screw which penetrated the humeral head on plain x-rays. Utilizing the previous incision proximally the incision was taken down through skin and subcutaneous as well as the deltoid fascia and deep to the proximal humerus W retractors were used to separate the surrounding soft tissue the proximal locking plate was identified through the screws were removed again under C-arm visualization as well as the one screw which penetrated the humeral head a AP and lateral view was used to confirm removal past to this the wound was copiously irrigated and was closed in a standard routine fashion. Dressings were applied to the left shoulder. The patient was extubated and was taken to postanesthesia recovery in stable condition Anesthesia: RINA Surgeon: LINDSAY HERNANDEZ Estimated blood loss: minimal Pathology: none Condition: stable Disposition: PACU
[2017-12-04 16:35] VITALS: BP 161/92
--- NOTE | 2017-12-05 07:16 | Post Anesthesia Evaluation ---
- Post Anesthesia Evaluation Patient Participated: Yes Airway Patent: Yes Stable Respiratory Function: Yes Nausea/Vomiting: No Temp > 96.8F: Yes Pain Manageable: Yes Adequeate Hydration: Yes Anesthesia Complications: No Block Receding Appropriately: Not Applicable Patient on Ventilator: No
== END 2017-12-04 11:15 ==
LOC: OR 06:25
PROVIDERS: ATTEND Orthopaedic Surgery
DX: T84.84XA Pain due to internal orthopedic prosthetic devices, implants and grafts, initial encounter (principal); E11.9 Type 2 diabetes mellitus without complications; I10 Essential (primary) hypertension; E78.00 Pure hypercholesterolemia, unspecified; J44.9 Chronic obstructive pulmonary disease, unspecified; K21.9 Gastro-esophageal reflux disease without esophagitis; M19.90 Unspecified osteoarthritis, unspecified site; Z79.4 Long term (current) use of insulin; Z79.899 Other long term (current) drug therapy; Z90.710 Acquired absence of both cervix and uterus; Z87.891 Personal history of nicotine dependence; Z98.890 Other specified postprocedural states; Y83.1 Surgical operation with implant of artificial internal device as the cause of abnormal reaction of the patient, or of later complication, without mention of misadventure at the time of the procedure
CPT/HCPCS: 20680; 36415; 73020; 80053; 82962; 85025; 88302; J0690; J1100; J2405; J2704; J3010; J7030

== ENCOUNTER 2018-06-17 09:28 | Outpatient (CLI) | payer MEDICARE, OTHER ==
[2018-06-17 10:51] LABS: Chol/HDL Ratio 2.35 %
[2018-06-25 06:19] LABS: Vitamin D, 25-OH, D2 SEE SCANNED RESULT
== END 2018-06-17 09:29 | disposition home or self-care (01) ==
LOC: LAB 09:28
PROVIDERS: ATTEND Internal Medicine
DX: Z00.01 Encounter for general adult medical examination with abnormal findings (principal); I10 Essential (primary) hypertension; E11.9 Type 2 diabetes mellitus without complications; E55.9 Vitamin D deficiency, unspecified; E78.00 Pure hypercholesterolemia, unspecified; J44.9 Chronic obstructive pulmonary disease, unspecified; Z90.89 Acquired absence of other organs; Z90.710 Acquired absence of both cervix and uterus
CPT/HCPCS: 36415; 80061; 82306; 83036

== ENCOUNTER 2018-10-02 10:43 | Outpatient (CLI) | payer MEDICARE, OTHER ==
[2018-10-02 11:20] LABS: Hematocrit 30.9 % (30.3-42.9); Hemoglobin 10.1 gm/dl (10.1-14.3); Mean Corpuscular HGB Conc 33 % (30-34); Mean Corpuscular Volume 88 fl (79-97); Platelet Count 223 K/mm3 (140-440); Red Blood Count 3.51 M/mm3 (3.65-5.03); Red Cell Distribution Width 14.3 % (13.2-15.2)
[2018-10-02 11:38] LABS: Alanine Aminotransferase 10 units/L (7-56); Albumin 4.3 g/dL (3.9-5); BUN/Creatinine Ratio 14; Blood Urea Nitrogen 14 mg/dL (7-17); Calcium 9.7 mg/dL (8.4-10.2); Hemolysis Index 37
== END 2018-10-02 10:44 | disposition home or self-care (01) ==
LOC: LAB 10:43
PROVIDERS: ATTEND Internal Medicine
DX: D50.0 Iron deficiency anemia secondary to blood loss (chronic) (principal); I12.9 Hypertensive chronic kidney disease with stage 1 through stage 4 chronic kidney disease, or unspecified chronic kidney disease; E11.22 Type 2 diabetes mellitus with diabetic chronic kidney disease; N18.3 Chronic kidney disease, stage 3 (moderate); E78.00 Pure hypercholesterolemia, unspecified; J44.9 Chronic obstructive pulmonary disease, unspecified; K21.9 Gastro-esophageal reflux disease without esophagitis; Z90.710 Acquired absence of both cervix and uterus; Z90.89 Acquired absence of other organs
CPT/HCPCS: 36415; 80053; 85027

== ENCOUNTER 2019-11-19 12:40 | Outpatient (CLI) | payer MEDICARE, OTHER ==
--- NOTE | 2019-11-19 14:35 | XRay Report ---
CLINICAL DATA: UNSPECIFIED OSTEOARTHRITIS UNSPECIFIED SITE TECHNICAL DATA: Four views of the ankle were obtained in the AP, lateral, and obliques. FINDINGS: Bones are severely osteopenic. Fracture of the distal fibula is present. The tibiotalar articulation is well maintained. The tibial plafond, ankle mortise, and talar dome are intact. IMPRESSION: Fracture distal fibula Signer Name: Toño Corado MD Signed: 11/19/2019 2:30 PM Workstation Name: [id number]
--- NOTE | 2019-11-19 14:50 | XRay Report ---
LEFT KNEE 2 VIEWS INDICATION / CLINICAL INFORMATION: UNSPECIFIED OSTEOARTHRITIS UNSPECIFIED SITE COMPARISON: 10/09/2017 FINDINGS: BONES / JOINT(S): No acute fracture or subluxation. There is a left total knee arthroplasty. No loose delores is seen. SOFT TISSUES: Atherosclerotic calcifications are noted in the distal superficial femoral artery and p opliteal artery and proximal runoff vessels. ADDITIONAL FINDINGS: None. Signer Name: Austin Banegas MD Signed: 11/19/2019 2:46 PM Workstation Name: [id number]
== END 2019-11-19 12:41 | disposition home or self-care (01) ==
LOC: XRAY 12:40
PROVIDERS: ATTEND Orthopaedic Surgery
DX: S82.832A Other fracture of upper and lower end of left fibula, initial encounter for closed fracture (principal); I70.8 Atherosclerosis of other arteries; X58.XXXA Exposure to other specified factors, initial encounter; Y93.89 Activity, other specified; Y92.89 Other specified places as the place of occurrence of the external cause; Y99.8 Other external cause status

== ENCOUNTER 2020-10-05 01:28 | Inpatient (IN) | payer MEDICARE, OTHER ==
--- NOTE | 2020-10-05 02:36 | Emergency Department Report ---
HPI - General Chief Complaint: Altered Mental Status Time Seen by Provider: 10/05/20 02:03 - HPI HPI: Room 4 The patient is an 85-year-old female present with a chief complaint of shortness of breath and altered mental status. The patient's daughter states 2 nights ago the patient fell out of bed. She states there was loss of consciousness. EMS was called and came to help put the patient back into bed. Yesterday the daughter states the patient again fell out of bed. This evening the daughter states she noticed that the patient's was not behaving or breathing normally and appeared to be "gasping for air." She states the patient complained "something is wrong" and was pointing at her chest. In the ED the patient is very hard of hearing but complains of pain in her right thigh. The patient did not receive any Covid vaccinations ED Past Medical Hx - Past Medical History Previous Medical History?: Yes Hx Hypertension: Yes (X 10 YRS) Hx Diabetes: Yes Hx GERD: Yes Hx Arthritis: Yes Hx COPD: Yes (PER HX ( NO MEDS)) Additional medical history: hyperlipedemia - Surgical History Past Surgical History?: Yes Additional Surgical History: L. knee replacement - Family History Family history: no significant - Social History Smoking Status: Never Smoker Substance Use Type: None - Medications Home Medications: Home Medications Medication Instructions Recorded Confirmed Last Taken Type Celecoxib [celeBREX] 200 mg PO DAILY 10/09/17 12/04/17 12/03/17 History AtorvaSTATin [Lipitor] 40 mg PO DAILY #30 10/15/17 12/04/17 12/03/17 Rx HYDROcodone/APAP 5-325 [Dunnell 1 each PO Q6H PRN #7 tablet 10/15/17 12/04/17 12/03/17 Rx 5-325 mg TAB] Lisinopril [Zestril] 20 mg PO DAILY #30 10/15/17 12/04/17 12/03/17 Rx Insulin NPH/Regular [NovoLIN 70/30] 10 unit SUB-Q BID 11/28/17 12/04/17 12/03/17 History Insulin Regular, Human [HumuLIN R] 0 units SUB-Q TID 11/28/17 12/04/17 12/03/17 History HYDROcodone/APAP 5-325 [Dunnell 1 each PO Q4HR PRN #20 tablet 12/04/17 Unknown Rx 5-325 mg TAB] ED Review of Systems ROS: Stated complaint: SEPTIC Other details as noted in HPI Constitutional: no symptoms reported Eyes: denies: eye pain ENT: denies: throat pain Respiratory: shortness of breath Cardiovascular: chest pain (?) Endocrine: no symptoms reported Gastrointestinal: denies: abdominal pain Genitourinary: denies: dysuria Musculoskeletal: myalgia Neurological: denies: headache Physical Exam - Physical Exam Vital Signs: Vital Signs 10/05/20 10/05/20 02:00 02:15 Temperature 99.3 F Pulse Rate 93 H 95 H Respiratory 15 Rate Blood Pressure 123/62 Blood Pressure 149/65 [Left] O2 Sat by Pulse 96 97 Oximetry Physical Exam: GENERAL: The patient is well-developed well-nourished female lying on stretcher not appearing to be in acute distress. Very hard of hearing HEENT: Normocephalic. Atraumatic. Extraocular motions are intact. Patient has moist mucous membranes. NECK: Supple. Trachea midline CHEST/LUNGS: Clear to auscultation. There is no respiratory distress noted. HEART/CARDIOVASCULAR: Regular. There is no tachycardia. There is no gallop rub or murmur. ABDOMEN: Abdomen is soft, nontender. Patient has normal bowel sounds. There is no abdominal distention. SKIN: There is no rash. There is no edema. There is no diaphoresis. NEURO: The patient is asleep but awakens easily to verbal stimuli. The patient is cooperative. The patient is very hard of hearing. The patient has normal speech. GCS 14 MUSCULOSKELETAL: There is tenderness to palpation of the right thigh. There is no evidence of acute injury. ED Course Vital Signs 10/05/20 10/05/20 02:00 02:15 Temperature 99.3 F Pulse Rate 93 H 95 H Respiratory 15 Rate Blood Pressure 123/62 Blood Pressure 149/65 [Left] O2 Sat by Pulse 96 97 Oximetry ED Medical Decision Making - Lab Data Result diagrams: 10/05/20 02:36 10/05/20 02:36 Laboratory Tests 10/05/20 10/05/20 10/05/20 02:36 02:36 02:36 WBC 5.9 RBC 4.18 Hgb 11.5 Hct 35.7 MCV 85 MCH 28 MCHC 32 RDW 13.0 L Plt Count 170 Lymph % (Auto) 11.2 L Stanley % (Auto) 12.9 H Eos % (Auto) 0.0 Baso % (Auto) 0.1 Lymph # (Auto) 0.7 L Stanley # (Auto) 0.8 Eos # (Auto) 0.0 Baso # (Auto) 0.0 Seg Neutrophils % 75.8 H Seg Neutrophils # 4.5 PT 12.5 INR 0.89 APTT 37.1 H VBG pH Sodium 135 L Potassium 4.2 Chloride 95.1 L Carbon Dioxide 25 Anion Gap 19 BUN 35 H Creatinine 1.8 H Estimated GFR 32 BUN/Creatinine Ratio 19 Glucose 175 H Calcium 8.6 Total Bilirubin 0.70 AST 22 ALT 11 Alkaline Phosphatase 70 Ammonia Total Creatine Kinase 139 H CK-MB (CK-2) 2.0 CK-MB (CK-2) Rel Index 1.4 Troponin T 0.023 NT-Pro-B Natriuret Pep 543.9 Total Protein 7.4 Albumin 3.4 L Albumin/Globulin Ratio 0.9 10/05/20 10/05/20 02:36 02:36 WBC RBC Hgb Hct MCV MCH MCHC RDW Plt Count Lymph % (Auto) Stanley % (Auto) Eos % (Auto) Baso % (Auto) Lymph # (Auto) Stanley # (Auto) Eos # (Auto) Baso # (Auto) Seg Neutrophils % Seg Neutrophils # PT INR APTT VBG pH 7.361 Sodium Potassium Chloride Carbon Dioxide Anion Gap BUN Creatinine Estimated GFR BUN/Creatinine Ratio Glucose Calcium Total Bilirubin AST ALT Alkaline Phosphatase Ammonia 10.0 L Total Creatine Kinase CK-MB (CK-2) CK-MB (CK-2) Rel Index Troponin T NT-Pro-B Natriuret Pep Total Protein Albumin Albumin/Globulin Ratio - EKG Data -: EKG Interpreted by Me EKG shows normal: sinus rhythm Rate: tachycardia - EKG Data When compared to previous EKG there are: previous EKG unavailable Interpretation: other (No ischemic changes seen) - Radiology Data Radiology results: report reviewed (Chest x-ray, right femur x-ray, CT head, CT cervical spine), image reviewed (Chest x-ray, right femur x-ray, CT head, CT cervical spine) interpreted by me: Chest x-ray-poor respiratory effort, right lower lobe atelectasis. No pneumothorax Right femur x-ray-no acute fracture, no dislocation [address] [address] XRay Report Signed Patient: DAVID LIPSCOMB MR#: [id number] : 1935 Acct:[id number] Age/Sex: 85 / F ADM Date: 10/05/20 Loc: ED Attending Dr: Ordering Physician: ISAMAR VELAZQUEZ MD Date of Service: 10/05/20 Procedure(s): XR chest 1V ap Accession Number(s): [id number] cc: ISAMAR VELAZQUEZ MD Fluoro Time In Minutes: CHEST 1 VIEW INDICATION: Shortness of breath. COMPARISON: 10/09/2017 FINDINGS: SUPPORT DEVICES: None. HEART: Within normal limits. LUNGS/PLEURA: Mild diffuse interstitial prominence is present, likely representing mild edema. No significant effusion. ADDITIONAL FINDINGS: None. IMPRESSION: 1. Pulmonary findings as above. Signer Name: Ed Bo MD Signed: 10/05/2020 3:34 AM Workstation Name: [id number] Transcribed By: JW Dictated By: Ed Bo MD Electronically Authenticated By: Ed Bo MD Signed Date/Time: 10/05/20333 DD/ 3 TD/TT: Print Cancel [address] [address] XRay Report Signed Patient: DAVID LIPSCOMB MR#: [id number] : 1935 Acct:[id number] Age/Sex: 85 / F ADM Date: 10/05/20 Loc: ED Attending Dr: Ordering Physician: ISAMAR VELAZQUEZ MD Date of Service: 10/05/20 Procedure(s): XR femur BILAT 2+V Accession Number(s): [id number] cc: ISAMAR VELAQZUEZ MD Fluoro Time In Minutes: Bilateral femur-8 views INDICATION: Pain after fall. COMPARISON: None. IMPRESSION: No acute osseous abnormality. Soft tissues are normal. Normal alignment. 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 Signer Name: Ed Bo MD Signed: 10/05/2020 3:36 AM Workstation Name: [id number] Transcribed By: GEOVANY Dictated By: Ed Bo MD Electronically Authenticated By: Ed Bo MD Signed Date/Time: 10/05/20335 DD/ 3 TD/TT: Print Cancel [address] [address] Cat Scan Report Signed Patient: DAVID LIPSCOMB MR#: [id number] : 1935 Acct:[id number] Age/Sex: 85 / F ADM Date: 10/05/20 Loc: ED Attending Dr: Ordering Physician: ISAMAR VELAZQUEZ MD Date of Service: 10/05/20 Procedure(s): CT head/brain wo con Accession Number(s): [id number] cc: ISAMAR VELAZQUEZ MD CT head without contrast HISTORY: Altered mental status, fall 2 nights ago. TECHNIQUE: Axial imaging performed from the skull apex through the skull base without the use of contrast. All CT scans at this location are performed using CT dose reduction for ALARA by means of automated exposure control. COMPARISON: CT head from 10/09/2017 FINDINGS: The exam is significantly limited because of kyphotic positioning. A portion of the anterior aspect of the brain to include the ma jority of the frontal lobes, face, and frontal/facial bones was excluded from view. Parenchyma: No gross acute intracranial hemorrhage or parenchymal abnormality. Ventricles: There is mild diffuse brain atrophy with commensurate ventricular enlargement which is likely age appropriate. Soft tissues: Soft tissues including the orbits appear normal. Bones: No acute osseous abnormality. Sinuses: Sinuses and mastoid air cells are clear. IMPRESSION: Very limited exam as outlined above with no gross acute abnormality. Signer Name: Ed Bo MD Signed: 10/05/2020 3:52 AM Workstation Name: [id number] Transcribed By: GEOVANY Dictated By: Ed Bo MD Electronically Authenticated By: Ed Bo MD Signed Date/Time: 10/05/20351 DD/ 9 TD/TT: Print Cancel [address] [address] Cat Scan Report Signed Patient: DAVID LIPSCOMB MR#: [id number] : 1935 Acct:[id number] Age/Sex: 85 / F ADM Date: 10/05/20 Loc: ED Attending Dr: Ordering Physician: ISAMAR VELAZQUEZ MD Date of Service: 10/05/20 Procedure(s): CT cervical spine wo con Accession Number(s): [id number] cc: ISAMAR VELAZQUEZ MD CT cervical spine without contrast INDICATION: Altered mental status, fall 2 nights ago. TECHNIQUE: Axial imaging performed through the cervical spine without the use of contrast. Sagittal and coronal reconstructed images were also reviewed. All CT scans at this location are performed using CT dose reduction for ALARA by means of automated exposure control. COMPARISON: CT cervical spine from 10/10/2017 FINDINGS: Exam is significantly limited by kyphotic alignment and to a lesser extent motion artifact. Alignment: Spinal alignment is normal. Bones: There is no acute osseous abnormality. Mild multilevel discogenic DJD is present. Soft tissues: No acute or significant incidental soft tissue abnormality. IMPRESSION: No acute abnormality. Signer Name: Ed Bo MD Signed: 10/05/2020 3:53 AM Workstation Name: [id number] Transcribed By: JW Dictated By: Ed Bo MD Electronically Authenticated By: Ed Bo MD Signed Date/Time: 10/05/20352 DD/ 1 TD/TT: Print Cancel - Differential Diagnosis Close head injury, subdural hematoma, COVID-19, pneumonia, bronchitis, ACS Critical care attestation.: If time is entered above; I have spent that time in minutes in the direct care of this critically ill patient, excluding procedure time. ED Disposition Clinical Impression: Altered mental status, Acute kidney injury, Closed head injury Disposition: OP ADMIT IP TO THIS HOSP Is pt being admited?: Yes Does the pt Need Aspirin: No Condition: Fair Time of Disposition: 04:57 (Hospitalist paged (Dr. Pena)) Heart Score - HEART Score History: Slightly suspicious EKG: Non-specific Age: > 65 Risk factors: > 3 risk factors or hx of atherosclerotic disease Troponin: < normal limit HEART Score: 5 - EKG Read Time Time EKG Completed: 03:49 EKG Read Time: 03:53
[2020-10-05 03:01] LABS: Basophils % (Auto) 0.1 % (0.0-1.8); Hematocrit 35.7 % (30.3-42.9); Hemoglobin 11.5 gm/dl (10.1-14.3); Lymphocytes # (Auto) 0.7 K/mm3 (1.2-5.4); Lymphocytes % (Auto) 11.2 % (13.4-35.0); Mean Corpuscular HGB Conc 32 % (30-34); Mean Corpuscular Volume 85 fl (79-97); Monocytes # (Auto) 0.8 K/mm3 (0.0-0.8); Monocytes % (Auto) 12.9 % (0.0-7.3); Platelet Count 170 K/mm3 (140-440); Red Blood Count 4.18 M/mm3 (3.65-5.03)
[2020-10-05 03:10] LABS: INR 0.89 (0.87-1.13)
[2020-10-05 03:11] LABS: Partial Thromboplastin Time 37.1 Sec. (24.2-36.6)
[2020-10-05 03:28] LABS: Albumin 3.4 g/dL (3.9-5); Calcium 8.6 mg/dL (8.4-10.2)
--- NOTE | 2020-10-05 03:39 | XRay Report ---
CHEST 1 VIEW INDICATION: Shortness of breath. COMPARISON: 10/09/2017 FINDINGS: SUPPORT DEVICES: None. HEART: Within normal limits. LUNGS/PLEURA: Mild diffuse interstitial prominence is present, likely representing mild edema. No sig nificant effusion. ADDITIONAL FINDINGS: None. IMPRESSION: 1. Pulmonary findings as above. Signer Name: Ed Bo MD Signed: 10/05/2020 3:34 AM Workstation Name: [id number]
--- NOTE | 2020-10-05 03:40 | XRay Report ---
Bilateral femur-8 views INDICATION: Pain after fall. COMPARISON: None. IMPRESSION: No acute osseous abnormality. Soft tissues are normal. Normal alignment. 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 Signer Name: Ed Bo MD Signed: 10/05/2020 3:36 AM Workstation Name: [email or web address]
--- NOTE | 2020-10-05 03:56 | Cat Scan Report ---
CT head without contrast HISTORY: Altered mental status, fall 2 nights ago. TECHNIQUE: Axial imaging performed from the skull apex through the skull base without the use of con trast. All CT scans at this location are performed using CT dose reduction for ALARA by means of aut omated exposure control. COMPARISON: CT head from 10/09/2017 FINDINGS: The exam is significantly limited because of kyphotic positioning. A portion of the anterior aspect o f the brain to include the majority of the frontal lobes, face, and frontal/facial bones was excluded from view. Parenchyma: No gross acute intracranial hemorrhage or parenchymal abnormality. Ventricles: There is mild diffuse brain atrophy with commensurate ventricular enlargement which is l ikely age appropriate. Soft tissues: Soft tissues including the orbits appear normal. Bones: No acute osseous abnormality. Sinuses: Sinuses and mastoid air cells are clear. IMPRESSION: Very limited exam as outlined above with no gross acute abnormality. Signer Name: Ed Bo MD Signed: 10/05/2020 3:52 AM Workstation Name: [id number]
--- NOTE | 2020-10-05 03:57 | Cat Scan Report ---
CT cervical spine without contrast INDICATION: Altered mental status, fall 2 nights ago. TECHNIQUE: Axial imaging performed through the cervical spine without the use of contrast. Sagittal and coronal reconstructed images were also reviewed. All CT scans at this location are performed us ing CT dose reduction for ALARA by means of automated exposure control. COMPARISON: CT cervical spine from 10/10/2017 FINDINGS: Exam is significantly limited by kyphotic alignment and to a lesser extent motion artifact. Alignment: Spinal alignment is normal. Bones: There is no acute osseous abnormality. Mild multilevel discogenic DJD is present. Soft tissues: No acute or significant incidental soft tissue abnormality. IMPRESSION: No acute abnormality. Signer Name: Ed Bo MD Signed: 10/05/2020 3:53 AM Workstation Name: [email or web address]
[2020-10-05] MEDS ORDERED: SODIUM CHLORIDE 0.9% 1000 ML 1,000 ML IV ONE (04:56)
[2020-10-05] MEDS ORDERED: ONDANSETRON 4 MG/2 ML INJ IV PRN (05:48)
[2020-10-05] MEDS ORDERED: DEXTROSE 50% IN WATER (25GM) 50 ML SYRINGE IV PRN (05:48)
[2020-10-05] MEDS ORDERED: oxyCODONE /ACETAMINOPHEN 5-325MG TAB PO PRN (05:48)
[2020-10-05] MEDS ORDERED: ALBUTEROL 2.5 MG/3 ML NEBU IH PRN (05:48)
[2020-10-05] MEDS ORDERED: HYDROmorphone 1 MG/1 ML INJ IV PRN (05:48)
[2020-10-05] MEDS ORDERED: ACETAMINOPHEN 325 MG TAB PO PRN (05:48)
--- NOTE | 2020-10-05 05:57 | History and Physical Report ---
History of Present Illness Date of examination: 10/05/20 Date of admission: 10/05/20 04:59 Chief complaint: Altered mental status Fall History of present illness: 85-year-old female with history of hypertension, diabetes, GERD, arthritis COPD and hyperlipidemia was brought to the emergency room because of shortness of breath and altered mental status. The patient's daughter states 2 nights ago the patient fell out of bed. She states there was loss of consciousness. EMS was called and came to help put the patient back into bed. Yesterday the daughter states the patient again fell out of bed. This evening the daughter states she noticed that the patient's was not behaving or breathing normally and appeared to be "gasping for air." She states the patient complained "something is wrong" and was pointing at her chest. In the ED the patient is very hard of hearing but complains of pain in her right thigh. The patient did not receive any Covid vaccinations In the emergency room patient BUN is [address] scan of the head shows no acute intracranial abnormality Past History Past Medical History: arthritis, diabetes, GERD, hypertension, hyperlipidemia Medications and Allergies Allergies Allergy/AdvReac Type Severity Reaction Status Date / Time No Known Allergies Allergy Verified 11/28/17 16:34 Home Medications Medication Instructions Recorded Confirmed Last Taken Type Celecoxib [celeBREX] 200 mg PO DAILY 10/09/17 12/04/17 12/03/17 History AtorvaSTATin [Lipitor] 40 mg PO DAILY #30 10/15/17 12/04/17 12/03/17 Rx HYDROcodone/APAP 5-325 [[place] 1 each PO Q6H PRN #7 tablet 10/15/17 12/04/17 12/03/17 Rx 5-325 mg TAB] Lisinopril [Zestril] 20 mg PO DAILY #30 10/15/17 12/04/17 12/03/17 Rx Insulin NPH/Regular [NovoLIN 70/30] 10 unit SUB-Q BID 11/28/17 12/04/17 12/03/17 History Insulin Regular, Human [HumuLIN R] 0 units SUB-Q TID 11/28/17 12/04/17 12/03/17 History HYDROcodone/APAP 5-325 [[place] 1 each PO Q4HR PRN #20 tablet 12/04/17 Unknown Rx 5-325 mg TAB] Active Meds: Active Medications Sodium Chloride (Nacl 0.9% 1000 Ml) 1,000 mls @ 250 mls/hr IV ONCE ONE Stop: 10/05/20 08:55 Last Admin: 10/05/20 05:03 Dose: 250 mls/hr Documented by: Review of Systems Cardiovascular: shortness of breath Respiratory: shortness of breath, dyspnea on exertion Neurological: change in mentation Exam - Constitutional Vitals: Temp Pulse Resp BP Pulse Ox 99.3 F 94 H 19 139/58 100 10/05/20 02:00 10/05/20 04:45 10/05/20 04:31 10/05/20 04:45 10/05/20 04:45 General appearance: Present: mild distress, well-nourished - EENT Eyes: Present: PERRL ENT: hearing intact, clear oral mucosa - Neck Neck: Present: supple, normal ROM - Respiratory Respiratory effort: normal Respiratory: bilateral: CTA - Cardiovascular Heart Sounds: Present: S1 & S2. Absent: rub, click - Extremities Extremities: pulses symmetrical, No edema Peripheral Pulses: within normal limits - Abdominal General gastrointestinal: Present: soft, non-tender, non-distended, normal bowel sounds Female genitourinary: Present: normal - Integumentary Integumentary: Present: clear, warm, dry - Musculoskeletal Musculoskeletal: other ( There is tenderness to palpation of the right thigh. There is no evidence of acute injury.) - Psychiatric Psychiatric: appropriate mood/affect, intact judgment & insight - Neurologic Neurologic: CNII-XII intact, moves all extremities, other (patient is asleep but awakens easily to verbal stimuli. The patient is cooperative. The patient is very hard of hearing. The patient has normal speech. GCS 14) HEART Score - HEART Score EKG: Non-specific Age: > 65 Risk factors: > 3 risk factors or hx of atherosclerotic disease Troponin: Troponin T 0.023 ng/mL (0.00-0.029) 10/05/20 02:36 Troponin: < normal limit Results - Labs CBC & Chem 7: 10/05/20 02:36 10/05/20 02:36 Labs: Laboratory Last Values WBC 5.9 K/mm3 (4.5-11.0) 10/05/20 02:36 RBC 4.18 M/mm3 (3.65-5.03) 10/05/20 02:36 Hgb 11.5 gm/dl (10.1-14.3) 10/05/20 02:36 Hct 35.7 % (30.3-42.9) 10/05/20 02:36 MCV 85 fl (79-97) 10/05/20 02:36 MCH 28 pg (28-32) 10/05/20 02:36 MCHC 32 % (30-34) 10/05/20 02:36 RDW 13.0 % (13.2-15.2) L 10/05/20 02:36 Plt Count 170 K/mm3 (140-440) 10/05/20 02:36 Lymph % (Auto) 11.2 % (13.4-35.0) L 10/05/20 02:36 [place] % (Auto) 12.9 % (0.0-7.3) H 10/05/20 02:36 Eos % (Auto) 0.0 % (0.0-4.3) 10/05/20 02:36 Baso % (Auto) 0.1 % (0.0-1.8) 10/05/20 02:36 Lymph # (Auto) 0.7 K/mm3 (1.2-5.4) L 10/05/20 02:36 [place] # (Auto) 0.8 K/mm3 (0.0-0.8) 10/05/20 02:36 Eos # (Auto) 0.0 K/mm3 (0.0-0.4) 10/05/20 02:36 Baso # (Auto) 0.0 K/mm3 (0.0-0.1) 10/05/20 02:36 Seg Neutrophils % 75.8 % (40.0-70.0) H 10/05/20 02:36 Seg Neutrophils # 4.5 K/mm3 (1.8-7.7) 10/05/20 02:36 PT 12.5 Sec. (12.2-14.9) 10/05/20 02:36 INR 0.89 (0.87-1.13) 10/05/20 02:36 APTT 37.1 Sec. (24.2-36.6) H 10/05/20 02:36 VBG pH 7.361 (7.320-7.420) 10/05/20 02:36 Sodium 135 mmol/L (137-145) L 10/05/20 02:36 Potassium 4.2 mmol/L (3.6-5.0) 10/05/20 02:36 Chloride 95.1 mmol/L (98-107) L 10/05/20 02:36 Carbon Dioxide 25 mmol/L (22-30) 10/05/20 02:36 Anion Gap 19 mmol/L 10/05/20 02:36 BUN 35 mg/dL (7-17) H 10/05/20 02:36 Creatinine 1.8 mg/dL (0.6-1.2) H 10/05/20 02:36 Estimated GFR 32 ml/min 10/05/20 02:36 BUN/Creatinine Ratio 19 % 10/05/20 02:36 Glucose 175 mg/dL (65-100) H 10/05/20 02:36 Calcium 8.6 mg/dL (8.4-10.2) 10/05/20 02:36 Total Bilirubin 0.70 mg/dL (0.1-1.2) 10/05/20 02:36 AST 22 units/L (5-40) 10/05/20 02:36 ALT 11 units/L (7-56) 10/05/20 02:36 Alkaline Phosphatase 70 units/L (35-129) 10/05/20 02:36 Ammonia 10.0 umol/L (25-60) L 10/05/20 02:36 Total Creatine Kinase 139 units/L (30-135) H 10/05/20 02:36 CK-MB (CK-2) 2.0 ng/mL (0.0-4.0) 10/05/20 02:36 CK-MB (CK-2) Rel Index 1.4 (0-4) 10/05/20 02:36 Troponin T 0.023 ng/mL (0.00-0.029) 10/05/20 02:36 NT-Pro-B Natriuret Pep 543.9 pg/mL (0-900) 10/05/20 02:36 Total Protein 7.4 g/dL (6.3-8.2) 10/05/20 02:36 Albumin 3.4 g/dL (3.9-5) L 10/05/20 02:36 Albumin/Globulin Ratio 0.9 % 10/05/20 02:36 - Imaging and Cardiology Chest x-ray: report reviewed CT Scan - head: report reviewed Assessment and Plan VTE prophylaxis?: Mechanical Plan of care discussed with patient/family: Yes - Patient Problems (1) Acute metabolic encephalopathy Current Visit: Yes Status: Acute Plan to address problem: Admit the patient to the medical floor telemetry. Metabolic encephalopathy can be a secondary to COLLINS and medication. CT scan of the head shows no acute intracranial abnormality. 1800 kcal ADA diet. Half-normal saline at the rate of 100 cc/h. Pepcid 20 mg p.o. twice daily. We will continue the home medication. Patient is on fall precaution . we will monitor the patient closely . Repeat CBC BMP in the morning (2) Acute kidney injury Current Visit: Yes Status: Acute Plan to address problem: Avoid nephrotoxic drug. Half-normal saline at the rate of 100 cc/h. Renally dose medication. Repeat BMP in the morning (3) Closed head injury Current Visit: Yes Status: Acute Plan to address problem: CT scan of the head shows no acute intracranial abnormality. We will put the patient on fall precaution. Consult physical therapy. we will monitor the patient closely (4) GERD (gastroesophageal reflux disease) Current Visit: Yes Status: Acute Plan to address problem: Pepcid 20 mg p.o. twice daily for GI prophylaxis. Continue home medication (5) Diabetes Current Visit: Yes Status: Acute Plan to address problem: We will put the patient on 1800 kcal ADA diet. Insulin sliding scale Humalog coverage with moderate dose coverage Accu-Chek before meals and at bedtime. Diabetic education (6) DVT prophylaxis Current Visit: Yes Status: Acute Plan to address problem: SCD for DVT prophylaxis because of fall. Pepcid 20 mg p.o. twice daily for GI prophylaxis. Patient is a full code
[2020-10-05] MEDS: INSULIN LISPRO 100 UNIT/ML SUB-Q SCH ×3 (07:39→23:33)
[2020-10-05] MEDS ORDERED: FAMOTIDINE 20 MG TAB PO SCH (10:00)
--- NOTE | 2020-10-05 10:12 | Progress Note ---
Assessment and Plan Assessment and plan: (1) Acute metabolic encephalopathy Current Visit: Yes Status: Acute Plan to address problem: Admit the patient to the medical floor telemetry. Metabolic encephalopathy can be a secondary to COLILNS and medication. CT scan of the head shows no acute intracranial abnormality. 1800 kcal ADA diet. Half-normal saline at the rate of 100 cc/h. Pepcid 20 mg p.o. twice daily. We will continue the home medication. Patient is on fall precaution . we will monitor the patient closely . Repeat CBC BMP in the morning (2) Acute kidney injury/vasomotor nephropathy Current Visit: Yes Status: Acute Plan to address problem: Avoid nephrotoxic drug. Half-normal saline at the rate of 100 cc/h. Renally dose medication. Repeat BMP in the morning (3) Closed head injury Current Visit: Yes Status: Acute Plan to address problem: CT scan of the head shows no acute intracranial abnormality. We will put the patient on fall precaution. Consult physical therapy. we will monitor the patient closely (4) GERD (gastroesophageal reflux disease) Current Visit: Yes Status: Acute Plan to address problem: Pepcid 20 mg p.o. twice daily for GI prophylaxis. Continue home medication (5) Diabetes Current Visit: Yes Status: Acute Plan to address problem: We will put the patient on 1800 kcal ADA diet. Insulin sliding scale Humalog coverage with moderate dose coverage Accu-Chek before meals and at bedtime. Diabetic education (6) DVT prophylaxis Current Visit: Yes Status: Acute Plan to address problem: SCD for DVT prophylaxis because of fall. Pepcid 20 mg p.o. twice daily for GI prophylaxis. Patient is a full code Closely monitor the patient and adjust the management as needed Consults and recommendations noted and appreciated Plan of care reviewed with patient and her nurse Advance care plan 40 minutes History Interval history: Seen and examined the patient at the bedside Patient's chart and medications reviewed Patient complains of shortness of breath Acute kidney injury Patient is more alert and awake Vital signs noted Hospitalist Physical - Constitutional Vitals: Temp Pulse Resp BP Pulse Ox 99.3 F 113 H 16 127/47 98 10/05/20 02:00 10/05/20 07:01 10/05/20 07:01 10/05/20 07:01 10/05/20 07:01 General appearance: Present: mild distress, well-nourished, obese - EENT Eyes: Present: PERRL, EOM intact - Neck Neck: Present: supple, normal ROM - Respiratory Respiratory effort: normal Respiratory: bilateral: diminished, rales, negative: rhonchi, wheezing - Cardiovascular Rhythm: regular Heart Sounds: Present: S1 & S2 - Extremities Extremities: no ischemia, No edema - Abdominal General gastrointestinal: soft, non-tender, non-distended, normal bowel sounds - Integumentary Integumentary: Present: clear, warm - Psychiatric Psychiatric: appropriate mood/affect, cooperative - Neurologic Neurologic: CNII-XII intact, moves all extremities HEART Score - HEART Score EKG: Non-specific Age: > 65 Risk factors: > 3 risk factors or hx of atherosclerotic disease Troponin: Troponin T 0.023 ng/mL (0.00-0.029) 10/05/20 02:36 Troponin: < normal limit Results - Labs CBC & Chem 7: 10/05/20 02:36 10/05/20 02:36 Labs: Laboratory Last Values WBC 5.9 K/mm3 (4.5-11.0) 10/05/20 02:36 RBC 4.18 M/mm3 (3.65-5.03) 10/05/20 02:36 Hgb 11.5 gm/dl (10.1-14.3) 10/05/20 02:36 Hct 35.7 % (30.3-42.9) 10/05/20 02:36 MCV 85 fl (79-97) 10/05/20 02:36 MCH 28 pg (28-32) 10/05/20 02:36 MCHC 32 % (30-34) 10/05/20 02:36 RDW 13.0 % (13.2-15.2) L 10/05/20 02:36 Plt Count 170 K/mm3 (140-440) 10/05/20 02:36 Lymph % (Auto) 11.2 % (13.4-35.0) L 10/05/20 02:36 [place] % (Auto) 12.9 % (0.0-7.3) H 10/05/20 02:36 Eos % (Auto) 0.0 % (0.0-4.3) 10/05/20 02:36 Baso % (Auto) 0.1 % (0.0-1.8) 10/05/20 02:36 Lymph # (Auto) 0.7 K/mm3 (1.2-5.4) L 10/05/20 02:36 [place] # (Auto) 0.8 K/mm3 (0.0-0.8) 10/05/20 02:36 Eos # (Auto) 0.0 K/mm3 (0.0-0.4) 10/05/20 02:36 Baso # (Auto) 0.0 K/mm3 (0.0-0.1) 10/05/20 02:36 Seg Neutrophils % 75.8 % (40.0-70.0) H 10/05/20 02:36 Seg Neutrophils # 4.5 K/mm3 (1.8-7.7) 10/05/20 02:36 PT 12.5 Sec. (12.2-14.9) 10/05/20 02:36 INR 0.89 (0.87-1.13) 10/05/20 02:36 APTT 37.1 Sec. (24.2-36.6) H 10/05/20 02:36 VBG pH 7.361 (7.320-7.420) 10/05/20 02:36 Sodium 135 mmol/L (137-145) L 10/05/20 02:36 Potassium 4.2 mmol/L (3.6-5.0) 10/05/20 02:36 Chloride 95.1 mmol/L (98-107) L 10/05/20 02:36 Carbon Dioxide 25 mmol/L (22-30) 10/05/20 02:36 Anion Gap 19 mmol/L 10/05/20 02:36 BUN 35 mg/dL (7-17) H 10/05/20 02:36 Creatinine 1.8 mg/dL (0.6-1.2) H 10/05/20 02:36 Estimated GFR 32 ml/min 10/05/20 02:36 BUN/Creatinine Ratio 19 % 10/05/20 02:36 Glucose 175 mg/dL (65-100) H 10/05/20 02:36 POC Glucose 190 mg/dL (70-105) H 10/05/20 07:32 Calcium 8.6 mg/dL (8.4-10.2) 10/05/20 02:36 Total Bilirubin 0.70 mg/dL (0.1-1.2) 10/05/20 02:36 AST 22 units/L (5-40) 10/05/20 02:36 ALT 11 units/L (7-56) 10/05/20 02:36 Alkaline Phosphatase 70 units/L (35-129) 10/05/20 02:36 Ammonia 10.0 umol/L (25-60) L 10/05/20 02:36 Total Creatine Kinase 139 units/L (30-135) H 10/05/20 02:36 CK-MB (CK-2) 2.0 ng/mL (0.0-4.0) 10/05/20 02:36 CK-MB (CK-2) Rel Index 1.4 (0-4) 10/05/20 02:36 Troponin T 0.023 ng/mL (0.00-0.029) 10/05/20 02:36 NT-Pro-B Natriuret Pep 543.9 pg/mL (0-900) 10/05/20 02:36 Total Protein 7.4 g/dL (6.3-8.2) 10/05/20 02:36 Albumin 3.4 g/dL (3.9-5) L 10/05/20 02:36 Albumin/Globulin Ratio 0.9 % 10/05/20 02:36 Active Medications - Current Medications Current Medications: Generic Name Dose Route Start Last Admin Trade Name Freq PRN Reason Stop Dose Admin Acetaminophen 650 mg 10/05/20 05:48 Acetaminophen 325 Mg Tab PO Q4H PRN Pain MILD(1-3)/Fever >100.5/WARE Albuterol 2.5 mg 10/05/20 05:48 Albuterol 2.5 Mg/3 Ml Nebu IH Q4HRT PRN Shortness Of Breath Albuterol/Ipratropium 1 ampul 10/05/20 08:00 Ipratropium/Albuterol Sulfate 3 Ml Ampul.Neb IH Q6HRT [facility] Atorvastatin Calcium 40 mg 10/05/20 10:00 Atorvastatin 40 Mg Tab PO DAILY [facility] Celecoxib 200 mg 10/05/20 10:00 Celecoxib 200 Mg Cap PO DAILY [facility] Dextrose 50 ml 10/05/20 05:48 Dextrose 50% In Water (25gm) 50 Ml Syringe IV Q30MIN PRN Hypoglycemia Protocol Famotidine 10 mg 10/05/20 10:00 Famotidine 10 Mg Tab PO BID SOFIA Hydromorphone HCl 0.5 mg 10/05/20 05:48 Hydromorphone 1 Mg/1 Ml Inj IV Q3H PRN Pain , Severe (7-10) Sodium Chloride 1,000 mls @ 100 mls/hr 10/05/20 06:00 Nacl 0.45% 1000 Ml IV DIRECT [facility] Insulin Human Lispro 0 unit 10/05/20 07:30 10/05/20 07:39 Insulin Lispro 100 Unit/Ml SUB-Q 2 unit ACHS SOFIA Administration Protocol Lisinopril 20 mg 10/05/20 10:00 Lisinopril 20 Mg Tab PO DAILY [facility] Ondansetron HCl 4 mg 10/05/20 05:48 Ondansetron 4 Mg/2 Ml Inj IV Q8H PRN Nausea And Vomiting Oxycodone/Acetaminophen 1 tab 10/05/20 05:48 Oxycodone /Acetaminophen 5-325mg Tab PO Q6H PRN Pain, Moderate (4-6) Sodium Chloride 10 ml 10/05/20 10:00 Sodium Chloride 0.9% 10 Ml Flush Syringe IV BID SOFIA Sodium Chloride 10 ml 10/05/20 05:48 Sodium Chloride 0.9% 10 Ml Flush Syringe IV PRN PRN LINE FLUSH Nutrition/Malnutrition Assess - Dietary Evaluation Nutrition/Malnutrition Findings: Nutrition Notes Start: 10/05/20 07:30 Freq: Status: Active Protocol: Document 10/05/20 07:30 (Rec: 10/05/20 07:33 [email or web address]) Nutrition Notes Need for Assessment generated from: MD Order Initial or Follow up Brief Note Current Diagnosis Acute Kidney Injury,Diabetes, Hypertension Other Pertinent Diagnosis [email or web address] Current Diet cardiac, consistent CHO Subjective/Other Information MD consult for diet education. Pt on hold in ED. Nutrition Intervention Follow-Up By: 10/07/20 Additional Comments F/u: diet education needs
[2020-10-05] MEDS: IPRATROPIUM/ALBUTEROL SULFATE 3 ML AMPUL.NEB IH SCH ×3 (10:57→21:12)
[2020-10-05] MEDS: CELECOXIB 200 MG CAP PO SCH (19:03)
[2020-10-05] MEDS: LISINOPRIL 20 MG TAB PO SCH (19:04)
[2020-10-05] MEDS: FAMOTIDINE 10 MG TAB PO SCH ×2 (19:04→22:28)
[2020-10-05] MEDS: IPRATROPIUM 0.02% NEBU 2.5 ML IH SCH (21:13)
[2020-10-05] MEDS: ARFORMOTEROL 15 MCG/2 ML NEBU IH SCH (21:13)
[2020-10-05] MEDS: SODIUM CHLORIDE 0.45% 1000 ML 1,000 ML IV SCH (22:27)
[2020-10-06] MEDS: IPRATROPIUM/ALBUTEROL SULFATE 3 ML AMPUL.NEB IH SCH ×3 (04:09→20:59)
[2020-10-06] MEDS: IPRATROPIUM 0.02% NEBU 2.5 ML IH SCH ×2 (04:10→10:08)
[2020-10-06 06:54] LABS: Basophils % (Auto) 0.3 % (0.0-1.8); Hematocrit 33.7 % (30.3-42.9); Hemoglobin 11.2 gm/dl (10.1-14.3); Lymphocytes # (Auto) 0.7 K/mm3 (1.2-5.4); Lymphocytes % (Auto) 11.6 % (13.4-35.0); Mean Corpuscular HGB Conc 33 % (30-34); Mean Corpuscular Volume 84 fl (79-97); Monocytes # (Auto) 0.6 K/mm3 (0.0-0.8); Monocytes % (Auto) 9.4 % (0.0-7.3); Platelet Count 187 K/mm3 (140-440); Red Blood Count 4.01 M/mm3 (3.65-5.03); Red Cell Distribution Width 13.2 % (13.2-15.2)
[2020-10-06 07:12] LABS: BUN/Creatinine Ratio 22; Blood Urea Nitrogen 22 mg/dL (7-17); Calcium 8.7 mg/dL (8.4-10.2); Hemolysis Index 10
[2020-10-06] MEDS: FAMOTIDINE 10 MG TAB PO SCH ×2 (09:15→21:37)
[2020-10-06] MEDS: CELECOXIB 200 MG CAP PO SCH (09:15)
[2020-10-06] MEDS: SODIUM CHLORIDE 0.45% 1000 ML 1,000 ML IV SCH ×2 (09:25→19:36)
[2020-10-06] MEDS: INSULIN LISPRO 100 UNIT/ML SUB-Q SCH ×4 (09:36→23:12)
[2020-10-06] MEDS: LISINOPRIL 20 MG TAB PO SCH (09:37)
[2020-10-06] MEDS: ARFORMOTEROL 15 MCG/2 ML NEBU IH SCH ×2 (10:08→20:59)
--- NOTE | 2020-10-06 10:40 | Progress Note ---
Assessment and Plan Assessment and plan: -- Acute metabolic encephalopathy Current Visit: Yes Status: Acute Admit the patient to the medical floor telemetry. Metabolic encephalopathy can be a secondary to COLLINS and medication. CT scan of the head shows no acute intracranial abnormality. 1800 kcal ADA diet. Half-normal saline at the rate of 100 cc/h. Pepcid 20 mg p.o. twice daily. We will continue the home medication. Patient is on fall precaution . we will monitor the patient closely . Repeat CBC BMP in the morning --acute kidney injury/vasomotor nephropathy Current Visit: Yes Status: Acute Avoid nephrotoxic drug. Half-normal saline at the rate of 100 cc/h. Resolved --Closed head injury Current Visit: Yes Status: Acute CT scan of the head shows no acute intracranial abnormality. Fall precautions, PT recommended subacute rehab --GERD (gastroesophageal reflux disease) Current Visit: Yes Status: Acute Pepcid 20 mg p.o. twice daily for GI prophylaxis. Continue home medication -- Diabetes; borderline Current Visit: Yes Status: Acute Accu-Chek sliding scale coverage ADA diet Long-acting insulin as needed, check A1c -- DVT prophylaxis Current Visit: Yes Status: Acute SCD for DVT prophylaxis because of fall. Pepcid 20 mg p.o. twice daily for GI prophylaxis. Patient is a full code Closely monitor the patient and adjust the management as needed Consults and recommendations noted and appreciated Plan of care reviewed with patient and her nurse Discharge planning; PT recommended subacute rehab DC planning per case management Requesting corrales PCR I also called patient's granddaughter HITESH Stoner at [phone] and discussed in detail patient's condition tests and reports Treatment plan, PT recommendation of subacute rehab placement, and discharge planning I encouraged her to call case management tomorrow to discuss different options of discharge planning She had many questions, answered all of them 10/06/2020; PT evaluated the patient and recommended subacute rehab Discussed with patient's granddaughter HITESH the discharge planning She wants to talk to the case management before making a decision History Interval history: I have seen and examined the patient at the bedside this morning Patient is confused nonverbal, not in acute distress Vital signs noted Hospitalist Physical - Constitutional Vitals: Temp Pulse Resp BP Pulse Ox 98.7 F 105 H 18 177/89 91 10/06/20 07:45 10/06/20 10:16 10/06/20 10:16 10/06/20 09:37 10/06/20 10:17 General appearance: Present: no acute distress, well-nourished, obese - EENT Eyes: Present: PERRL, EOM intact - Neck Neck: Present: supple, normal ROM - Respiratory Respiratory effort: normal Respiratory: bilateral: diminished, negative: rales, rhonchi, wheezing - Cardiovascular Rhythm: regular Heart Sounds: Present: S1 & S2 - Extremities Extremities: no ischemia, No edema - Abdominal General gastrointestinal: soft, non-tender, non-distended, normal bowel sounds - Integumentary Integumentary: Present: clear, warm - Psychiatric Psychiatric: other (Noncommunicative) - Neurologic Neurologic: moves all extremities, other (Noncommunicative and confused) HEART Score - HEART Score EKG: Non-specific Age: > 65 Risk factors: > 3 risk factors or hx of atherosclerotic disease Troponin: Troponin T 0.023 ng/mL (0.00-0.029) 10/05/20 02:36 Troponin: < normal limit Results - Labs CBC & Chem 7: 10/06/20 04:53 10/06/20 04:53 Labs: Laboratory Last Values WBC 6.1 K/mm3 (4.5-11.0) 10/06/20 04:53 RBC 4.01 M/mm3 (3.65-5.03) 10/06/20 04:53 Hgb 11.2 gm/dl (10.1-14.3) 10/06/20 04:53 Hct 33.7 % (30.3-42.9) 10/06/20 04:53 MCV 84 fl (79-97) 10/06/20 04:53 MCH 28 pg (28-32) 10/06/20 04:53 MCHC 33 % (30-34) 10/06/20 04:53 RDW 13.2 % (13.2-15.2) 10/06/20 04:53 Plt Count 187 K/mm3 (140-440) 10/06/20 04:53 Lymph % (Auto) 11.6 % (13.4-35.0) L 10/06/20 04:53 [place] % (Auto) 9.4 % (0.0-7.3) H 10/06/20 04:53 Eos % (Auto) 0.0 % (0.0-4.3) 10/06/20 04:53 Baso % (Auto) 0.3 % (0.0-1.8) 10/06/20 04:53 Lymph # (Auto) 0.7 K/mm3 (1.2-5.4) L 10/06/20 04:53 [place] # (Auto) 0.6 K/mm3 (0.0-0.8) 10/06/20 04:53 Eos # (Auto) 0.0 K/mm3 (0.0-0.4) 10/06/20 04:53 Baso # (Auto) 0.0 K/mm3 (0.0-0.1) 10/06/20 04:53 Seg Neutrophils % 78.7 % (40.0-70.0) H 10/06/20 04:53 Seg Neutrophils # 4.8 K/mm3 (1.8-7.7) 10/06/20 04:53 PT 12.5 Sec. (12.2-14.9) 10/05/20 02:36 INR 0.89 (0.87-1.13) 10/05/20 02:36 APTT 37.1 Sec. (24.2-36.6) H 10/05/20 02:36 VBG pH 7.361 (7.320-7.420) 10/05/20 02:36 Sodium 130 mmol/L (137-145) L 10/06/20 04:53 Potassium 3.8 mmol/L (3.6-5.0) 10/06/20 04:53 Chloride 91.5 mmol/L (98-107) L 10/06/20 04:53 Carbon Dioxide 22 mmol/L (22-30) 10/06/20 04:53 Anion Gap 20 mmol/L 10/06/20 04:53 BUN 22 mg/dL (7-17) H 10/06/20 04:53 Creatinine 1.0 mg/dL (0.6-1.2) 10/06/20 04:53 Estimated GFR > 60 ml/min 10/06/20 04:53 BUN/Creatinine Ratio 22 % 10/06/20 04:53 Glucose 157 mg/dL (65-100) H 10/06/20 04:53 POC Glucose 152 mg/dL (70-105) H 10/06/20 07:43 Calcium 8.7 mg/dL (8.4-10.2) 10/06/20 04:53 Total Bilirubin 0.70 mg/dL (0.1-1.2) 10/05/20 02:36 AST 22 units/L (5-40) 10/05/20 02:36 ALT 11 units/L (7-56) 10/05/20 02:36 Alkaline Phosphatase 70 units/L (35-129) 10/05/20 02:36 Ammonia 10.0 umol/L (25-60) L 10/05/20 02:36 Total Creatine Kinase 139 units/L (30-135) H 10/05/20 02:36 CK-MB (CK-2) 2.0 ng/mL (0.0-4.0) 10/05/20 02:36 CK-MB (CK-2) Rel Index 1.4 (0-4) 10/05/20 02:36 Troponin T 0.023 ng/mL (0.00-0.029) 10/05/20 02:36 NT-Pro-B Natriuret Pep 543.9 pg/mL (0-900) 10/05/20 02:36 Total Protein 7.4 g/dL (6.3-8.2) 10/05/20 02:36 Albumin 3.4 g/dL (3.9-5) L 10/05/20 02:36 Albumin/Globulin Ratio 0.9 % 10/05/20 02:36 Tompkins/IV: Voiding Method Incontinent Active Medications - Current Medications Current Medications: Generic Name Dose Route Start Last Admin Trade Name Freq PRN Reason Stop Dose Admin Acetaminophen 650 mg 10/05/20 05:48 Acetaminophen 325 Mg Tab PO Q4H PRN Pain MILD(1-3)/Fever >100.5/WARE Albuterol 2.5 mg 10/05/20 05:48 Albuterol 2.5 Mg/3 Ml Nebu IH Q4HRT PRN Shortness Of Breath Albuterol/Ipratropium 1 ampul 10/06/20 20:00 Ipratropium/Albuterol Sulfate 3 Ml Ampul.Neb IH BIDRT SOFIA Arformoterol Tartrate 15 mcg 10/05/20 20:00 08/12/21 10:08 Arformoterol 15 Mcg/2 Ml Nebu IH 15 mcg Q12HRT SOFIA Administration Atorvastatin Calcium 40 mg 10/05/20 10:00 10/06/20 09:15 Atorvastatin 40 Mg Tab PO 40 mg DAILY SOFIA Administration Celecoxib 200 mg 10/05/20 10:00 10/06/20 09:15 Celecoxib 200 Mg Cap PO 200 mg DAILY SOFIA Administration Dextrose 50 ml 10/05/20 05:48 Dextrose 50% In Water (25gm) 50 Ml Syringe IV Q30MIN PRN Hypoglycemia Protocol Famotidine 10 mg 10/05/20 10:00 10/06/20 09:15 Famotidine 10 Mg Tab PO 10 mg BID SOFIA Administration Hydromorphone HCl 0.5 mg 10/05/20 05:48 Hydromorphone 1 Mg/1 Ml Inj IV Q3H PRN Pain , Severe (7-10) Sodium Chloride 1,000 mls @ 100 mls/hr 10/05/20 06:00 10/06/20 09:25 Nacl 0.45% 1000 Ml IV 100 mls/hr DIRECT SOFIA Administration Insulin Human Lispro 0 unit 10/05/20 07:30 10/06/20 09:36 Insulin Lispro 100 Unit/Ml SUB-Q 2 unit ACHS SOFIA Administration Protocol Lisinopril 20 mg 10/05/20 10:00 10/06/20 09:37 Lisinopril 20 Mg Tab PO 20 mg DAILY SOFIA Administration Ondansetron HCl 4 mg 10/05/20 05:48 Ondansetron 4 Mg/2 Ml Inj IV Q8H PRN Nausea And Vomiting Oxycodone/Acetaminophen 1 tab 10/05/20 05:48 Oxycodone /Acetaminophen 5-325mg Tab PO Q6H PRN Pain, Moderate (4-6) Sodium Chloride 10 ml 10/05/20 10:00 10/06/20 09:16 Sodium Chloride 0.9% 10 Ml Flush Syringe IV 10 ml BID SOFIA Administration Sodium Chloride 10 ml 10/05/20 05:48 Sodium Chloride 0.9% 10 Ml Flush Syringe IV PRN PRN LINE FLUSH Nutrition/Malnutrition Assess - Dietary Evaluation Nutrition/Malnutrition Findings: Nutrition Notes Start: 10/05/20 07:30 Freq: Status: Active Protocol: Document 10/05/20 07:30 MK (Rec: 08/11/21 07:33 YAZMIN [id number]) Nutrition Notes Need for Assessment generated from: MD Order Initial or Follow up Brief Note Current Diagnosis Acute Kidney Injury,Diabetes, Hypertension Other Pertinent Diagnosis [email or web address] Current Diet cardiac, consistent CHO Subjective/Other Information MD consult for diet education. Pt on hold in ED. Nutrition Intervention Follow-Up By: 10/07/20 Additional Comments F/u: diet education needs
[2020-10-06 18:17] LABS: Bacteria,Urine 2+ /HPF (Negative); Bilirubin,Urine NEG (Negative); Blood,Urine SM (Negative); Color,Urine Yellow (Yellow); Mucus,Urine FEW /HPF; Urobilinogen,Urine < 2.0 mg/dL (<2.0)
--- NOTE | 2020-10-06 19:58 | Event Note ---
Date: 10/06/20 I also called patient's granddaughter HITESH Stoner at [phone] and discussed in detail patient's condition tests and reports Treatment plan, PT recommendation of subacute rehab placement, and discharge planning I encouraged her to call case management tomorrow to discuss different options of discharge planning She had many questions, answered all of them
[2020-10-07] MEDS: SODIUM CHLORIDE 0.45% 1000 ML 1,000 ML IV SCH (06:38)
[2020-10-07] MEDS: INSULIN LISPRO 100 UNIT/ML SUB-Q SCH ×3 (07:49→17:36)
[2020-10-07] MEDS: CELECOXIB 200 MG CAP PO SCH (09:09)
[2020-10-07] MEDS: FAMOTIDINE 10 MG TAB PO SCH (09:09)
[2020-10-07] MEDS: LISINOPRIL 20 MG TAB PO SCH (09:10)
--- NOTE | 2020-10-07 09:10 | Electrocardiograph Report ---
[facility] Test Date: 2020-10-05 Test Time: 03:49:44 Pat Name: DAVID LIPSCOMB Department: Room: A469 Gender: F Claim Professional: EVENS : [id number] Requested By: ISAMAR VELAZQUEZ Order Number: [id number] Reading MD: Rio Elias Measurements Intervals [place] Rate: 110 P: 73 ND: 180 QRS: -23 QRSD: 77 T: 18 QT: 325 QTc: 441 Interpretive Statements Sinus tachycardia Multiform ventricular premature complexes No previous ECG available for comparison Electronically Signed On 10-07-2020 9:10:05 EDT by Rio Elias
--- NOTE | 2020-10-07 10:55 | Progress Note ---
Assessment and Plan Assessment and plan: -- Acute metabolic encephalopathy Current Visit: Yes Status: Acute Admit the patient to the medical floor telemetry. Metabolic encephalopathy can be a secondary to COLLINS and medication. CT scan of the head shows no acute intracranial abnormality. 1800 kcal ADA diet. Half-normal saline at the rate of 100 cc/h. Pepcid 20 mg p.o. twice daily. We will continue the home medication. Patient is on fall precaution . we will monitor the patient closely . Repeat CBC BMP in the morning --acute kidney injury/vasomotor nephropathy Current Visit: Yes Status: Acute Avoid nephrotoxic drug. Half-normal saline at the rate of 100 cc/h. Resolved --Closed head injury Current Visit: Yes Status: Acute CT scan of the head shows no acute intracranial abnormality. Fall precautions, PT recommended subacute rehab --GERD (gastroesophageal reflux disease) Current Visit: Yes Status: Acute Pepcid 20 mg p.o. twice daily for GI prophylaxis. Continue home medication -- Diabetes; borderline Current Visit: Yes Status: Acute Accu-Chek sliding scale coverage ADA diet Long-acting insulin as needed, check A1c -- DVT prophylaxis Current Visit: Yes Status: Acute SCD for DVT prophylaxis because of fall. Pepcid 20 mg p.o. twice daily for GI prophylaxis. Patient is a full code Closely monitor the patient and adjust the management as needed Consults and recommendations noted and appreciated Plan of care reviewed with patient and her nurse Discharge planning; PT recommended subacute rehab DC planning per case management Requesting corrales PCR I also called patient's granddaughter HITESH Stoner at [phone] and discussed in detail patient's condition tests and reports Treatment plan, PT recommendation of subacute rehab placement, and discharge planning I encouraged her to call case management tomorrow to discuss different options of discharge planning She had many questions, answered all of them 10/06/2020; PT evaluated the patient and recommended subacute rehab Discussed with patient's granddaughter HITESH the discharge planning She wants to talk to the case management before making a decision 10/07/2020; Patient clinically stable, awaiting subacute rehab placement History Interval history: I seen and examined the patient at the bedside Patient's chart and medications reviewed Patient is cachectic emaciated and confused Awaiting subacute placement COVID-19 test was sent in preparation for placement Vital signs noted Hospitalist Physical - Constitutional Vitals: Temp Pulse Resp BP Pulse Ox 97.3 F L 104 H 18 162/83 95 10/07/20 08:04 10/07/20 09:10 10/07/20 08:04 10/07/20 09:10 10/07/20 08:04 General appearance: Present: mild distress, well-nourished, obese - EENT Eyes: Present: PERRL, EOM intact - Neck Neck: Present: supple, normal ROM - Respiratory Respiratory effort: normal Respiratory: bilateral: diminished, negative: rales, rhonchi, wheezing - Cardiovascular Rhythm: regular Heart Sounds: Present: S1 & S2 - Extremities Extremities: no ischemia, No edema - Abdominal General gastrointestinal: soft, non-tender, non-distended, normal bowel sounds - Integumentary Integumentary: Present: clear, warm - Psychiatric Psychiatric: appropriate mood/affect, cooperative, other (Confused) - Neurologic Neurologic: CNII-XII intact, moves all extremities HEART Score - HEART Score EKG: Non-specific Age: > 65 Risk factors: > 3 risk factors or hx of atherosclerotic disease Troponin: Troponin T 0.023 ng/mL (0.00-0.029) 10/05/20 02:36 Troponin: < normal limit Results - Labs CBC & Chem 7: 10/06/20 04:53 10/06/20 04:53 Labs: Laboratory Last Values WBC 6.1 K/mm3 (4.5-11.0) 10/06/20 04:53 RBC 4.01 M/mm3 (3.65-5.03) 10/06/20 04:53 Hgb 11.2 gm/dl (10.1-14.3) 10/06/20 04:53 Hct 33.7 % (30.3-42.9) 10/06/20 04:53 MCV 84 fl (79-97) 10/06/20 04:53 MCH 28 pg (28-32) 10/06/20 04:53 MCHC 33 % (30-34) 10/06/20 04:53 RDW 13.2 % (13.2-15.2) 10/06/20 04:53 Plt Count 187 K/mm3 (140-440) 10/06/20 04:53 Lymph % (Auto) 11.6 % (13.4-35.0) L 10/06/20 04:53 [place] % (Auto) 9.4 % (0.0-7.3) H 10/06/20 04:53 Eos % (Auto) 0.0 % (0.0-4.3) 10/06/20 04:53 Baso % (Auto) 0.3 % (0.0-1.8) 10/06/20 04:53 Lymph # (Auto) 0.7 K/mm3 (1.2-5.4) L 10/06/20 04:53 [place] # (Auto) 0.6 K/mm3 (0.0-0.8) 10/06/20 04:53 Eos # (Auto) 0.0 K/mm3 (0.0-0.4) 10/06/20 04:53 Baso # (Auto) 0.0 K/mm3 (0.0-0.1) 10/06/20 04:53 Seg Neutrophils % 78.7 % (40.0-70.0) H 10/06/20 04:53 Seg Neutrophils # 4.8 K/mm3 (1.8-7.7) 10/06/20 04:53 PT 12.5 Sec. (12.2-14.9) 10/05/20 02:36 INR 0.89 (0.87-1.13) 10/05/20 02:36 APTT 37.1 Sec. (24.2-36.6) H 10/05/20 02:36 VBG pH 7.361 (7.320-7.420) 10/05/20 02:36 Sodium 130 mmol/L (137-145) L 10/06/20 04:53 Potassium 3.8 mmol/L (3.6-5.0) 10/06/20 04:53 Chloride 91.5 mmol/L (98-107) L 10/06/20 04:53 Carbon Dioxide 22 mmol/L (22-30) 10/06/20 04:53 Anion Gap 20 mmol/L 10/06/20 04:53 BUN 22 mg/dL (7-17) H 10/06/20 04:53 Creatinine 1.0 mg/dL (0.6-1.2) 10/06/20 04:53 Estimated GFR > 60 ml/min 10/06/20 04:53 BUN/Creatinine Ratio 22 % 10/06/20 04:53 Glucose 157 mg/dL (65-100) H 10/06/20 04:53 POC Glucose 155 mg/dL (70-105) H 10/07/20 07:40 Calcium 8.7 mg/dL (8.4-10.2) 10/06/20 04:53 Total Bilirubin 0.70 mg/dL (0.1-1.2) 10/05/20 02:36 AST 22 units/L (5-40) 10/05/20 02:36 ALT 11 units/L (7-56) 10/05/20 02:36 Alkaline Phosphatase 70 units/L (35-129) 10/05/20 02:36 Ammonia 10.0 umol/L (25-60) L 10/05/20 02:36 Total Creatine Kinase 139 units/L (30-135) H 10/05/20 02:36 CK-MB (CK-2) 2.0 ng/mL (0.0-4.0) 10/05/20 02:36 CK-MB (CK-2) Rel Index 1.4 (0-4) 10/05/20 02:36 Troponin T 0.023 ng/mL (0.00-0.029) 10/05/20 02:36 NT-Pro-B Natriuret Pep 543.9 pg/mL (0-900) 10/05/20 02:36 Total Protein 7.4 g/dL (6.3-8.2) 10/05/20 02:36 Albumin 3.4 g/dL (3.9-5) L 10/05/20 02:36 Albumin/Globulin Ratio 0.9 % 10/05/20 02:36 Urine Color Yellow (Yellow) 10/06/20 Unknown Urine Turbidity Slightly-cloudy (Clear) 10/06/20 Unknown Urine pH 6.0 (5.0-7.0) 10/06/20 Unknown Ur Specific [place] 1.014 (1.003-1.030) 10/06/20 Unknown Urine Protein 100 mg/dl mg/dL (Negative) 10/06/20 Unknown Urine Glucose (UA) Neg mg/dL (Negative) 10/06/20 Unknown Urine Ketones Tr mg/dL (Negative) 10/06/20 Unknown Urine Blood Sm (Negative) 10/06/20 Unknown Urine Nitrite Neg (Negative) 10/06/20 Unknown Urine Bilirubin Neg (Negative) 10/06/20 Unknown Urine Urobilinogen < 2.0 mg/dL (<2.0) 10/06/20 Unknown Ur Leukocyte Esterase Neg (Negative) 10/06/20 Unknown Urine WBC (Auto) 8.0 /HPF (0.0-6.0) H 10/06/20 Unknown Urine RBC (Auto) 2.0 /HPF (0.0-6.0) 10/06/20 Unknown U Epithel Cells (Auto) 6.0 /HPF (0-13.0) 10/06/20 Unknown Urine Bacteria (Auto) 2+ /HPF (Negative) 10/06/20 Unknown Urine Mucus Few /HPF 10/06/20 Unknown Tompkins/IV: Voiding Method External Female Catheter Active Medications - Current Medications Current Medications: Generic Name Dose Route Start Last Admin Trade Name Freq PRN Reason Stop Dose Admin Acetaminophen 650 mg 10/05/20 05:48 Acetaminophen 325 Mg Tab PO Q4H PRN Pain MILD(1-3)/Fever >100.5/WARE Albuterol 2.5 mg 10/05/20 05:48 Albuterol 2.5 Mg/3 Ml Nebu IH Q4HRT PRN Shortness Of Breath Albuterol/Ipratropium 1 ampul 10/06/20 20:00 10/06/20 20:59 Ipratropium/Albuterol Sulfate 3 Ml Ampul.Neb IH 1 ampul BIDRT SOFIA Administration Arformoterol Tartrate 15 mcg 10/05/20 20:00 10/06/20 20:59 Arformoterol 15 Mcg/2 Ml Nebu IH 15 mcg Q12HRT SOFIA Administration Atorvastatin Calcium 40 mg 10/05/20 10:00 10/07/20 09:10 Atorvastatin 40 Mg Tab PO 40 mg DAILY SOFIA Administration Celecoxib 200 mg 10/05/20 10:00 10/07/20 09:09 Celecoxib 200 Mg Cap PO 200 mg DAILY SOFIA Administration Dextrose 50 ml 10/05/20 05:48 Dextrose 50% In Water (25gm) 50 Ml Syringe IV Q30MIN PRN Hypoglycemia Protocol Famotidine 10 mg 10/05/20 10:00 10/07/20 09:09 Famotidine 10 Mg Tab PO 10 mg BID SOFIA Administration Hydromorphone HCl 0.5 mg 10/05/20 05:48 Hydromorphone 1 Mg/1 Ml Inj IV Q3H PRN Pain , Severe (7-10) Sodium Chloride 1,000 mls @ 100 mls/hr 10/05/20 06:00 10/07/20 06:38 Nacl 0.45% 1000 Ml IV 100 mls/hr DIRECT SOFIA Administration Insulin Human Lispro 0 unit 10/05/20 07:30 10/07/20 07:49 Insulin Lispro 100 Unit/Ml SUB-Q Not Given ACHS [facility] Protocol Lisinopril 20 mg 10/05/20 10:00 10/07/20 09:10 Lisinopril 20 Mg Tab PO 20 mg DAILY SOFIA Administration Ondansetron HCl 4 mg 10/05/20 05:48 Ondansetron 4 Mg/2 Ml Inj IV Q8H PRN Nausea And Vomiting Oxycodone/Acetaminophen 1 tab 10/05/20 05:48 Oxycodone /Acetaminophen 5-325mg Tab PO Q6H PRN Pain, Moderate (4-6) Sodium Chloride 10 ml 10/05/20 10:00 10/07/20 09:10 Sodium Chloride 0.9% 10 Ml Flush Syringe IV 10 ml BID SOFIA Administration Sodium Chloride 10 ml 10/05/20 05:48 Sodium Chloride 0.9% 10 Ml Flush Syringe IV PRN PRN LINE FLUSH Nutrition/Malnutrition Assess - Dietary Evaluation Nutrition/Malnutrition Findings: Nutrition Notes Start: 10/05/20 07:30 Freq: Status: Active Protocol: Document 10/07/20 08:59 (Rec: 10/07/20 09:02 [id number]) Nutrition Notes Initial or Follow up Brief Note Subjective/Other Information Pt not appropriate for education. Spoke with granddaughter about pt diet. She reports pt consumes diet sugar products at home and doesn't feel like they struggle to manage BG. Answered all questions. Encouraged whole grain products, lean proteins, fresh fruits and vegetables. Nutrition Intervention Revisit per MD consult or patient Sign Off request:
[2020-10-07] MEDS: IPRATROPIUM/ALBUTEROL SULFATE 3 ML AMPUL.NEB IH SCH ×2 (10:59→23:04)
[2020-10-07] MEDS: ARFORMOTEROL 15 MCG/2 ML NEBU IH SCH ×2 (10:59→23:04)
--- NOTE | 2020-10-07 17:49 | XRay Report ---
XR chest 1V ap INDICATION / CLINICAL INFORMATION: Covid positive/evaluate for pneumonia. COMPARISON: 10/05/2020 FINDINGS: SUPPORT DEVICES: None HEART /PULMONARY VASCULATURE: Unchanged. LUNGS / PLEURA: Diffuse increased interstitial markings appear slightly increased from prior study de spite improved lung aeration. There is airspace consolidation of the left lower lobe, increased. Trac e bibasilar pleural effusions are present. There is no pneumothorax. IMPRESSION: Increased diffuse interstitial opacities with airspace consolidation in the left lung base, concernin g for pneumonia. Signer Name: Keith Bowman MD Signed: 10/07/2020 5:45 PM Workstation Name: [id number]
[2020-10-07 18:26] LABS: C-Reactive Protein 17.5 mg/dL (0.00-1.30)
--- NOTE | 2020-10-07 19:08 | Consultation ---
History of Present Illness - Reason for Consult Consult date: 10/07/20 - History of Present Illness 85-year-old male past medical history hypertension, diabetes, COPD with a hospital complaining of shortness of breath altered mental status. Family reported that she fell 2 nights prior with loss of consciousness. Then she has been gasping for air and eating normally. She is not vaccinated against Covid. Afebrile since admission with a white count 6.1. Covid positive. COLLINS on admission which has returned to normal. Elevated CRP and ferritin. Pending procalcitonin. Currently on no antibiotics. No cultures available for review. On 2 L nasal cannula. Imaging personally reviewed: Chest x-ray: Diffuse interstitial opacities airspace consolidation Review of systems: Deferred to reduce to the risk of transmission of COVID-19 Past History Past Medical History: arthritis, diabetes, GERD, hypertension, hyperlipidemia Medications and Allergies Allergies Allergy/AdvReac Type Severity Reaction Status Date / Time No Known Allergies Allergy Verified 11/28/17 16:34 Home Medications Medication Instructions Recorded Confirmed Last Taken Type Celecoxib [celeBREX] 200 mg PO DAILY 10/09/17 10/05/20 10/04/20 History AtorvaSTATin [Lipitor] 40 mg PO DAILY #30 10/15/17 10/05/20 10/04/20 Rx Lisinopril [Zestril] 20 mg PO DAILY #30 10/15/17 10/05/20 10/04/20 Rx Insulin NPH/Regular [NovoLIN 70/30] 10 unit SUB-Q BID 11/28/17 10/05/20 10/04/20 History Insulin Regular, Human [HumuLIN R] 0 units SUB-Q TID 11/28/17 10/05/20 10/04/20 History Active Meds: Active Medications Acetaminophen (Acetaminophen 325 Mg Tab) 650 mg PO Q4H PRN PRN Reason: Pain MILD(1-3)/Fever >100.5/WARE Albuterol (Albuterol 2.5 Mg/3 Ml Nebu) 2.5 mg IH Q4HRT PRN PRN Reason: Shortness Of Breath Albuterol/Ipratropium (Ipratropium/Albuterol Sulfate 3 Ml Ampul.Neb) 1 ampul IH BIDRT SOFIA Last Admin: 10/07/20 10:59 Dose: Not Given Documented by: Arformoterol Tartrate (Arformoterol 15 Mcg/2 Ml Nebu) 15 mcg IH Q12HRT [facility] Last Admin: 10/07/20 10:59 Dose: 15 mcg Documented by: Atorvastatin Calcium (Atorvastatin 40 Mg Tab) 40 mg PO DAILY [facility] Last Admin: 10/07/20 09:10 Dose: 40 mg Documented by: Celecoxib (Celecoxib 200 Mg Cap) 200 mg PO DAILY [facility] Last Admin: 10/07/20 09:09 Dose: 200 mg Documented by: Dextrose (Dextrose 50% In Water (25gm) 50 Ml Syringe) 50 ml IV Q30MIN PRN; Protocol PRN Reason: Hypoglycemia Famotidine (Famotidine 10 Mg Tab) 10 mg PO BID [facility] Last Admin: 10/07/20 09:09 Dose: 10 mg Documented by: Hydromorphone HCl (Hydromorphone 1 Mg/1 Ml Inj) 0.5 mg IV Q3H PRN PRN Reason: Pain , Severe (7-10) Sodium Chloride (Nacl 0.45% 1000 Ml) 1,000 mls @ 100 mls/hr IV DIRECT [facility] Last Admin: 10/07/20 06:38 Dose: 100 mls/hr Documented by: Insulin Human Lispro (Insulin Lispro 100 Unit/Ml) 0 unit SUB-Q ACHS [facility]; Protocol Last Admin: 10/07/20 17:36 Dose: Not Given Documented by: Lisinopril (Lisinopril 20 Mg Tab) 20 mg PO DAILY [facility] Last Admin: 10/07/20 09:10 Dose: 20 mg Documented by: Ondansetron HCl (Ondansetron 4 Mg/2 Ml Inj) 4 mg IV Q8H PRN PRN Reason: Nausea And Vomiting Oxycodone/Acetaminophen (Oxycodone /Acetaminophen 5-325mg Tab) 1 tab PO Q6H PRN PRN Reason: Pain, Moderate (4-6) Sodium Chloride (Sodium Chloride 0.9% 10 Ml Flush Syringe) 10 ml IV BID [facility] Last Admin: 10/07/20 09:10 Dose: 10 ml Documented by: Sodium Chloride (Sodium Chloride 0.9% 10 Ml Flush Syringe) 10 ml IV PRN PRN PRN Reason: LINE FLUSH Physical Examination - Physical Exam Narrative exam: Physical exam deferred to reduce risk of transmission of COVID-19. Please refer to primary team's note. - Constitutional Vitals: Vital Signs Temp Pulse Resp BP Pulse Ox 98.8 F 80 18 158/68 96 10/07/20 17:39 10/07/20 18:25 10/07/20 17:39 10/07/20 18:25 10/07/20 16:50 Temperature -Last 24 Hours Temperature 98.8 F Temperature 98.7 F Temperature 97.3 F Temperature 97.5 F Temperature 98.0 F Results - Labs CBC & Chem 7: 10/06/20 04:53 10/06/20 04:53 Labs: Abnormal lab results 10/06/20 10/06/20 10/07/20 Range/Units 21:18 Unknown 07:40 D-Dimer (0-234) ng/mlDDU POC Glucose 127 H 155 H (70-105) mg/dL Ferritin (10.0-200.0) ng/mL Lactate Dehydrogenase (91-180) units/L C-Reactive Protein (0.00-1.30) mg/dL Coronavirus (PCR) Positive A (Negative) 10/07/20 10/07/20 10/07/20 Range/Units 12:02 17:36 17:44 D-Dimer 860.86 H (0-234) ng/mlDDU POC Glucose 192 H 158 H (70-105) mg/dL Ferritin (10.0-200.0) ng/mL Lactate Dehydrogenase (91-180) units/L C-Reactive Protein (0.00-1.30) mg/dL Coronavirus (PCR) (Negative) 10/07/20 10/07/20 Range/Units 17:44 17:44 D-Dimer (0-234) ng/mlDDU POC Glucose (70-105) mg/dL Ferritin 832.6 H (10.0-200.0) ng/mL Lactate Dehydrogenase 311 H (91-180) units/L C-Reactive Protein 17.50 H (0.00-1.30) mg/dL Coronavirus (PCR) (Negative) Assessment and Plan Cultures: Covid PCR: Positive A/P: 85-year-old female 85-year-old male past medical history hypertension, mi betes, COPD now with COVID-19 #COVID-19 pneumonia: Patient presented with 2 days of symptoms, chest x-ray with diffuse bilateral infiltrates. Inflammatory markers elevated #Acute hypoxemic respiratory failure: Likely secondary to COVID-19 infection. Currently on 2 L nasal cannula #COLLINS: Now resolved #Diabetes: tight glycemic control for best outcomes. #COPD Recs: -Dexamethasone 6 mg IV/PO daily for 10 days -If requiring greater than 2 L nasal cannula, recommend starting remdesivir -Obtain q48-72h inflammatory markers - ferritin, Ddimer, CRP, LDH -Check procalcitonin, if greater than 0.25 please start ceftriaxone and azithromycin. -Anticoagulation per hospital protocol -Proning as able Thank you for the consult, we will continue to follow. James Nicole MD [facility] ([facility] O: [phone] F: [phone]
[2020-10-08] MEDS: FAMOTIDINE 10 MG TAB PO SCH ×3 (00:41→23:03)
[2020-10-08] MEDS: DEXAMETHASONE 4 MG TAB PO SCH ×2 (00:42→10:25)
[2020-10-08] MEDS: SODIUM CHLORIDE 0.45% 1000 ML 1,000 ML IV SCH ×3 (00:43→23:05)
[2020-10-08] MEDS: INSULIN LISPRO 100 UNIT/ML SUB-Q SCH ×5 (00:44→22:00)
[2020-10-08] MEDS: IPRATROPIUM/ALBUTEROL SULFATE 3 ML AMPUL.NEB IH SCH ×2 (08:18→22:05)
[2020-10-08] MEDS: ARFORMOTEROL 15 MCG/2 ML NEBU IH SCH ×2 (08:18→22:05)
--- NOTE | 2020-10-08 08:23 | Progress Note ---
Assessment and Plan Addendum entered and electronically signed by JONNY BARCENAS MD 10/07/20 21:56: [place] PCR test is positive ; 10/07/2020;, will check room air O2 sats, if low start dexamethasone and remdesivir ID consult, isolation, inflammatory markers, home OT evaluation, proning Closely monitor the patient and adjust management as needed Hold SNF placement at this point Discharge planning per case management Plan of care reviewed with the patient's nurse Original Note: Assessment and Plan Assessment and plan: -- Acute metabolic encephalopathy Current Visit: Yes Status: Acute Admit the patient to the medical floor telemetry. Metabolic encephalopathy can be a secondary to COLLINS and medication. CT scan of the head shows no acute intracranial abnormality. 1800 kcal ADA diet. Half-normal saline at the rate of 100 cc/h. Pepcid 20 mg p.o. twice daily. We will continue the home medication. Patient is on fall precaution . we will monitor the patient closely . Repeat CBC BMP in the morning --acute kidney injury/vasomotor nephropathy Current Visit: Yes Status: Acute Avoid nephrotoxic drug. Half-normal saline at the rate of 100 cc/h. Resolved --Closed head injury Current Visit: Yes Status: Acute CT scan of the head shows no acute intracranial abnormality. Fall precautions, PT recommended subacute rehab --GERD (gastroesophageal reflux disease) Current Visit: Yes Status: Acute Pepcid 20 mg p.o. twice daily for GI prophylaxis. Continue home medication -- Diabetes; borderline Current Visit: Yes Status: Acute Accu-Chek sliding scale coverage ADA diet Long-acting insulin as needed, check A1c -- DVT prophylaxis Current Visit: Yes Status: Acute SCD for DVT prophylaxis because of fall. Pepcid 20 mg p.o. twice daily for GI prophylaxis. Patient is a full code Subjective Date of service: 10/08/20 Principal diagnosis: Altered mental status COVID-19 pneumonia Interval history: 85-year-old female with history of hypertension, diabetes, GERD, arthritis COPD and hyperlipidemia was brought to the emergency room because of shortness of breath and altered mental status. The patient's daughter states 2 nights ago the patient fell out of bed. She states there was loss of consciousness. EMS was called and came to help put the patient back into bed. Yesterday the daughter states the patient again fell out of bed. This evening the daughter states she noticed that the patient's was not behaving or breathing normally and appeared to be "gasping for air." She states the patient complained "something is wrong" and was pointing at her chest. In the ED the patient is very hard of hearing but complains of pain in her right thigh. The patient did not receive any Covid vaccinations Patient was found to be hypoxemic short of breath and positive for COVID-19. Patient will require placement. Objective - Constitutional Vitals: Vital Signs - 12hr 10/07/20 10/07/20 10/07/20 22:37 22:49 23:02 Temperature 103.0 F H 97.5 F L Pulse Rate 134 H 117 H Respiratory 18 18 Rate Blood Pressure 172/85 130/80 O2 Sat by Pulse 74 L 97 90 Oximetry 10/08/20 10/08/20 04:21 05:23 Temperature 99.2 F Pulse Rate 118 H Respiratory 18 Rate Blood Pressure 118/68 O2 Sat by Pulse 95 93 Oximetry - Labs CBC & Chem 7: 10/06/20 04:53 10/06/20 04:53 Labs: Abnormal lab results 10/06/20 10/07/20 10/07/20 Range/Units Unknown 12:02 17:36 D-Dimer (0-234) ng/mlDDU POC Glucose 192 H 158 H (70-105) mg/dL Ferritin (10.0-200.0) ng/mL Lactate Dehydrogenase (91-180) units/L C-Reactive Protein (0.00-1.30) mg/dL Coronavirus (PCR) Positive A (Negative) 10/07/20 10/07/20 10/07/20 Range/Units 17:44 17:44 17:44 D-Dimer 860.86 H (0-234) ng/mlDDU POC Glucose (70-105) mg/dL Ferritin 832.6 H (10.0-200.0) ng/mL Lactate Dehydrogenase 311 H (91-180) units/L C-Reactive Protein 17.50 H (0.00-1.30) mg/dL Coronavirus (PCR) (Negative) 10/07/20 10/08/20 Range/Units 22:29 07:40 D-Dimer (0-234) ng/mlDDU POC Glucose 141 H 181 H (70-105) mg/dL Ferritin (10.0-200.0) ng/mL Lactate Dehydrogenase (91-180) units/L C-Reactive Protein (0.00-1.30) mg/dL Coronavirus (PCR) (Negative) HEART Score - HEART Score EKG: Non-specific Age: > 65 Risk factors: > 3 risk factors or hx of atherosclerotic disease Troponin: Troponin T 0.023 ng/mL (0.00-0.029) 10/05/20 02:36 Troponin: < normal limit
[2020-10-08] MEDS: CELECOXIB 200 MG CAP PO SCH (10:25)
[2020-10-08] MEDS: LISINOPRIL 20 MG TAB PO SCH (10:47)
[2020-10-08] MEDS: METOPROLOL TARTRATE 25 MG TAB PO SCH (23:03)
[2020-10-09] MEDS ORDERED: LORazepam 2 MG/ML VIAL IV ONE ×3 (00:35→06:05)
[2020-10-09] MEDS: INSULIN LISPRO 100 UNIT/ML SUB-Q SCH ×2 (08:19→12:35)
[2020-10-09] MEDS: IPRATROPIUM/ALBUTEROL SULFATE 3 ML AMPUL.NEB IH SCH (09:54)
[2020-10-09] MEDS: ARFORMOTEROL 15 MCG/2 ML NEBU IH SCH (09:54)
--- NOTE | 2020-10-09 10:06 | Progress Note ---
Assessment and Plan Addendum entered and electronically signed by JONNY BARCENAS MD 10/07/20 21:56: [place] PCR test is positive ; 10/07/2020;, will check room air O2 sats, if low start dexamethasone and remdesivir ID consult, isolation, inflammatory markers, home OT evaluation, proning Closely monitor the patient and adjust management as needed Hold SNF placement at this point Discharge planning per case management Plan of care reviewed with the patient's nurse Original Note: Assessment and Plan Assessment and plan: Acute respiratory failure- Secondary to COVID-19 pneumonia-appears to be worsening at this time. Patient transferred to ICU started on BiPAP. Pulmonology consult has been obtained. Continue dexamethasone. Remdesivir was on hold secondary to acute renal failure family [place] [id number] -- Acute metabolic encephalopathy Current Visit: Yes Status: Acute Admit the patient to the medical floor telemetry. Metabolic encephalopathy can be a secondary to COLLINS and medication. CT scan of the head shows no acute intracranial abnormality. 1800 kcal ADA diet. Half-normal saline at the rate of 100 cc/h. Pepcid 20 mg p.o. twice daily. We will continue the home medication. Patient is on fall precaution . we will monitor the patient closely . Repeat CBC BMP in the morning --acute kidney injury/vasomotor nephropathy Current Visit: Yes Status: Acute Avoid nephrotoxic drug. Half-normal saline at the rate of 100 cc/h. Resolved --Closed head injury Current Visit: Yes Status: Acute CT scan of the head shows no acute intracranial abnormality. Fall precautions, PT recommended subacute rehab --GERD (gastroesophageal reflux disease) Current Visit: Yes Status: Acute Pepcid 20 mg p.o. twice daily for GI prophylaxis. Continue home medication -- Diabetes; borderline Current Visit: Yes Status: Acute Accu-Chek sliding scale coverage ADA diet Long-acting insulin as needed, check A1c -- DVT prophylaxis Current Visit: Yes Status: Acute SCD for DVT prophylaxis because of fall. Pepcid 20 mg p.o. twice daily for GI prophylaxis. Patient is a full code Subjective Date of service: 10/09/20 Principal diagnosis: Altered mental status COVID-19 pneumonia Interval history: 85-year-old female with history of hypertension, diabetes, GERD, arthritis COPD and hyperlipidemia was brought to the emergency room because of shortness of breath and altered mental status. The patient's daughter states 2 nights ago the patient fell out of bed. She states there was loss of consciousness. EMS was called and came to help put the patient back into bed. Yesterday the daughter states the patient again fell out of bed. This evening the daughter states she noticed that the patient's was not behaving or breathing normally and appeared to be "gasping for air." She states the patient complained "something is wrong" and was pointing at her chest. In the ED the patient is very hard of hearing but complains of pain in her right thigh. The patient did not receive any Covid vaccinations Patient was found to be hypoxemic short of breath and positive for COVID-19. Patient will require placement. 10/09/2020 Patient hospital course complicated last night by hypoxemia requiring BiPAP as well as tachycardia and tachypnea. Signs and symptoms of worsening COVID-19 pneumonia. Patient transferred to the ICU for acute respiratory failure Objective - Constitutional Vitals: Vital Signs - 12hr 10/08/20 10/08/20 10/08/20 22:09 22:16 22:44 Temperature 99.4 F Pulse Rate 106 H 137 H Pulse Rate [ 110 H Throughout] Respiratory 46 H Rate Respiratory 20 Rate [ Throughout] Blood Pressure 135/66 O2 Sat by Pulse 76 L 74 L Oximetry 10/08/20 10/08/20 10/09/20 23:00 23:03 04:12 Temperature 98.6 F Pulse Rate 137 H 61 Pulse Rate [ Throughout] Respiratory 48 H Rate Respiratory Rate [ Throughout] Blood Pressure 135/66 99/50 O2 Sat by Pulse 84 68 L Oximetry 10/09/20 10/09/20 10/09/20 04:48 05:50 08:51 Temperature 98.2 F Pulse Rate 87 Pulse Rate [ Throughout] Respiratory 53 H 54 H 17 Rate Respiratory Rate [ Throughout] Blood Pressure 91/53 112/57 O2 Sat by Pulse 78 L 93 Oximetry 10/09/20 10/09/20 10/09/20 08:52 08:55 09:29 Temperature Pulse Rate 106 H 66 Pulse Rate [ Throughout] Respiratory 46 H Rate Respiratory Rate [ Throughout] Blood Pressure O2 Sat by Pulse 51 L 89 Oximetry 10/09/20 09:48 Temperature Pulse Rate 110 H Pulse Rate [ Throughout] Respiratory 42 H Rate Respiratory Rate [ Throughout] Blood Pressure O2 Sat by Pulse 82 L Oximetry General appearance: Present: other (Moderate distress on BiPAP) - EENT Eyes: PERRL - Respiratory Respiratory: bilateral: diminished, rales - Cardiovascular Rhythm: other (Tachycardia) Extremities: pulses intact, No edema, normal color, Full ROM - Gastrointestinal General gastrointestinal: Present: soft, non-tender, non-distended, normal bowel sounds - Musculoskeletal Musculoskeletal: generalized weakness - Neurologic Neurologic: other (Cognitive impairment) - Labs CBC & Chem 7: 10/06/20 04:53 10/06/20 04:53 Labs: Abnormal lab results 10/08/20 10/08/20 10/08/20 Range/Units 12:01 16:40 21:17 ABG pH (7.320-7.450) POC ABG pCO2 (32.0-48.0) mmHg POC ABG pO2 (83-108) mmHg ABG Oxyhemoglobin (94-98) ABG Sodium (136.0-145.0) mmol/L ABG Potassium (3.40-4.50) mmol/L ABG Chloride (98-107) mmol/L ABG Glucose (65-95) mg/dL POC Glucose 237 H 224 H 216 H (70-105) mg/dL Arterial Blood Glucose (65-95) mg/dL Arterial Blood Ionized Calcium (4.6-5.3) mg/dL 10/09/20 Range/Units 06:01 ABG pH 7.457 H (7.320-7.450) POC ABG pCO2 27.3 L (32.0-48.0) mmHg POC ABG pO2 60.4 L (83-108) mmHg ABG Oxyhemoglobin 91.5 L (94-98) ABG Sodium 126.4 L (136.0-145.0) mmol/L ABG Potassium 4.6 H (3.40-4.50) mmol/L ABG Chloride 97.0 L (98-107) mmol/L ABG Glucose 150 H (65-95) mg/dL POC Glucose (70-105) mg/dL Arterial Blood Glucose 150 H (65-95) mg/dL Arterial Blood Ionized Calcium 4.2 L (4.6-5.3) mg/dL HEART Score - HEART Score EKG: Non-specific Age: > 65 Risk factors: > 3 risk factors or hx of atherosclerotic disease Troponin: Troponin T 0.023 ng/mL (0.00-0.029) 10/05/20 02:36 Troponin: < normal limit
[2020-10-09] MEDS ORDERED: hydrALAZINE 20 MG/1 ML INJ IV PRN (11:06)
[2020-10-09] MEDS ORDERED: LORazepam 2 MG/ML VIAL IV PRN (11:08)
--- NOTE | 2020-10-09 11:14 | Consultation ---
History of Present Illness Consult date: 10/09/20 Requesting physician: LUPIS VALERIO Reason for consult: hypoxemia, other (COVID) History of present illness: 85 y/o female admitted for fall at home Past History Past Medical History: arthritis, diabetes, GERD, hypertension, hyperlipidemia Medications and Allergies Allergies Allergy/AdvReac Type Severity Reaction Status Date / Time No Known Allergies Allergy Verified 11/28/17 16:34 Home Medications Medication Instructions Recorded Confirmed Last Taken Type Celecoxib [celeBREX] 200 mg PO DAILY 10/09/17 10/05/20 10/04/20 History AtorvaSTATin [Lipitor] 40 mg PO DAILY #30 10/15/17 10/05/20 10/04/20 Rx Lisinopril [Zestril] 20 mg PO DAILY #30 10/15/17 10/05/20 10/04/20 Rx Insulin NPH/Regular [NovoLIN 70/30] 10 unit SUB-Q BID 11/28/17 10/05/20 10/04/20 History Insulin Regular, Human [HumuLIN R] 0 units SUB-Q TID 11/28/17 10/05/20 10/04/20 History Active Meds: Active Medications Dexamethasone (Dexamethasone 4 Mg/Ml Vial) 8 mg IV Q24H SOFIA Dextrose (Dextrose 50% In Water (25gm) 50 Ml Syringe) 50 ml IV Q30MIN PRN; Protocol PRN Reason: Hypoglycemia Famotidine (Famotidine 20 Mg/2 Ml Inj) 20 mg IV QDAY SOFIA Hydralazine HCl (Hydralazine 20 Mg/1 Ml Inj) 20 mg IV Q4HR PRN PRN Reason: Hypertension Hydromorphone HCl (Hydromorphone 1 Mg/1 Ml Inj) 0.5 mg IV Q3H PRN PRN Reason: Pain , Severe (7-10) Insulin Human Lispro (Insulin Lispro 100 Unit/Ml) 0 unit SUB-Q ACHS SOFIA; Protocol Last Admin: 10/09/20 08:19 Dose: Not Given Documented by: Lorazepam (Lorazepam 2 Mg/Ml Vial) 1 mg IV Q4H PRN PRN Reason: Agitation Metoprolol Tartrate (Metoprolol Tartrate 5 Mg/5 Ml Inj) 5 mg IV Q6HR SOFIA Ondansetron HCl (Ondansetron 4 Mg/2 Ml Inj) 4 mg IV Q8H PRN PRN Reason: Nausea And Vomiting Sodium Chloride (Sodium Chloride 0.9% 10 Ml Flush Syringe) 10 ml IV BID SOFIA Last Admin: 10/08/20 23:03 Dose: 10 ml Documented by: Sodium Chloride (Sodium Chloride 0.9% 10 Ml Flush Syringe) 10 ml IV PRN PRN PRN Reason: LINE FLUSH Physical Examination Vital signs: Vital Signs Temp Pulse Resp BP Pulse Ox 99.3 F 93 H 15 149/65 96 10/05/20 02:00 10/05/20 02:00 10/05/20 02:00 10/05/20 02:00 10/05/20 02:00 Results - Laboratory Findings CBC and BMP: 10/06/20 04:53 10/06/20 04:53 ABG ABG pH 7.457 (7.320-7.450) H 10/09/20 06:01 POC ABG pCO2 27.3 mmHg (32.0-48.0) L 10/09/20 06:01 POC ABG pO2 60.4 mmHg (83-108) L 10/09/20 06:01 POC ABG HCO3 18.8 10/09/20 06:01 ABG O2 Saturation 92.5 (0-100) 10/09/20 06:01 PT/INR, D-dimer PT 12.5 Sec. (12.2-14.9) 10/05/20 02:36 INR 0.89 (0.87-1.13) 10/05/20 02:36 D-Dimer 860.86 ng/mlDDU (0-234) H 10/07/20 17:44 Abnormal lab findings: Abnormal Labs 10/05/20 10/05/20 10/05/20 02:36 02:36 02:36 RDW 13.0 L Lymph % (Auto) 11.2 L [place] % (Auto) 12.9 H Lymph # (Auto) 0.7 L Seg Neutrophils % 75.8 H APTT 37.1 H D-Dimer ABG pH POC ABG pCO2 POC ABG pO2 ABG Oxyhemoglobin ABG Sodium ABG Potassium ABG Chloride ABG Glucose Sodium 135 L Chloride 95.1 L BUN 35 H Creatinine 1.8 H Glucose 175 H POC Glucose Ferritin Ammonia Lactate Dehydrogenase Total Creatine Kinase 139 H C-Reactive Protein Albumin 3.4 L Arterial Blood Glucose Arterial Blood Ionized Calcium Urine WBC (Auto) Coronavirus (PCR) 10/05/20 10/05/20 10/05/20 02:36 07:32 11:53 RDW Lymph % (Auto) [place] % (Auto) Lymph # (Auto) Seg Neutrophils % APTT D-Dimer ABG pH POC ABG pCO2 POC ABG pO2 ABG Oxyhemoglobin ABG Sodium ABG Potassium ABG Chloride ABG Glucose Sodium Chloride BUN Creatinine Glucose POC Glucose 190 H 167 H Ferritin Ammonia 10.0 L Lactate Dehydrogenase Total Creatine Kinase C-Reactive Protein Albumin Arterial Blood Glucose Arterial Blood Ionized Calcium Urine WBC (Auto) Coronavirus (PCR) 10/05/20 10/05/20 10/06/20 16:08 21:28 04:53 RDW Lymph % (Auto) 11.6 L [place] % (Auto) 9.4 H Lymph # (Auto) 0.7 L Seg Neutrophils % 78.7 H APTT D-Dimer ABG pH POC ABG pCO2 POC ABG pO2 ABG Oxyhemoglobin ABG Sodium ABG Potassium ABG Chloride ABG Glucose Sodium Chloride BUN Creatinine Glucose POC Glucose 154 H 143 H Ferritin Ammonia Lactate Dehydrogenase Total Creatine Kinase C-Reactive Protein Albumin Arterial Blood Glucose Arterial Blood Ionized Calcium Urine WBC (Auto) Coronavirus (PCR) 10/06/20 10/06/20 10/06/20 04:53 07:43 11:24 RDW Lymph % (Auto) [place] % (Auto) Lymph # (Auto) Seg Neutrophils % APTT D-Dimer ABG pH POC ABG pCO2 POC ABG pO2 ABG Oxyhemoglobin ABG Sodium ABG Potassium ABG Chloride ABG Glucose Sodium 130 L Chloride 91.5 L BUN 22 H Creatinine Glucose 157 H POC Glucose 152 H 181 H Ferritin Ammonia Lactate Dehydrogenase Total Creatine Kinase C-Reactive Protein Albumin Arterial Blood Glucose Arterial Blood Ionized Calcium Urine WBC (Auto) Coronavirus (PCR) 10/06/20 10/06/20 10/06/20 16:32 21:18 Unknown RDW Lymph % (Auto) [place] % (Auto) Lymph # (Auto) Seg Neutrophils % APTT D-Dimer ABG pH POC ABG pCO2 POC ABG pO2 ABG Oxyhemoglobin ABG Sodium ABG Potassium ABG Chloride ABG Glucose Sodium Chloride BUN Creatinine Glucose POC Glucose 124 H 127 H Ferritin Ammonia Lactate Dehydrogenase Total Creatine Kinase C-Reactive Protein Albumin Arterial Blood Glucose Arterial Blood Ionized Calcium Urine WBC (Auto) 8.0 H Coronavirus (PCR) 10/06/20 10/07/20 10/07/20 Unknown 07:40 12:02 RDW Lymph % (Auto) [place] % (Auto) Lymph # (Auto) Seg Neutrophils % APTT D-Dimer ABG pH POC ABG pCO2 POC ABG pO2 ABG Oxyhemoglobin ABG Sodium ABG Potassium ABG Chloride ABG Glucose Sodium Chloride BUN Creatinine Glucose POC Glucose 155 H 192 H Ferritin Ammonia Lactate Dehydrogenase Total Creatine Kinase C-Reactive Protein Albumin Arterial Blood Glucose Arterial Blood Ionized Calcium Urine WBC (Auto) Coronavirus (PCR) Positive A 10/07/20 10/07/20 10/07/20 17:36 17:44 17:44 RDW Lymph % (Auto) [place] % (Auto) Lymph # (Auto) Seg Neutrophils % APTT D-Dimer 860.86 H ABG pH POC ABG pCO2 POC ABG pO2 ABG Oxyhemoglobin ABG Sodium ABG Potassium ABG Chloride ABG Glucose Sodium Chloride BUN Creatinine Glucose POC Glucose 158 H Ferritin 832.6 H Ammonia Lactate Dehydrogenase Total Creatine Kinase C-Reactive Protein Albumin Arterial Blood Glucose Arterial Blood Ionized Calcium Urine WBC (Auto) Coronavirus (PCR) 10/07/20 10/07/20 10/08/20 17:44 22:29 07:40 RDW Lymph % (Auto) [place] % (Auto) Lymph # (Auto) Seg Neutrophils % APTT D-Dimer ABG pH POC ABG pCO2 POC ABG pO2 ABG Oxyhemoglobin ABG Sodium ABG Potassium ABG Chloride ABG Glucose Sodium Chloride BUN Creatinine Glucose POC Glucose 141 H 181 H Ferritin Ammonia Lactate Dehydrogenase 311 H Total Creatine Kinase C-Reactive Protein 17.50 H Albumin Arterial Blood Glucose Arterial Blood Ionized Calcium Urine WBC (Auto) Coronavirus (PCR) 10/08/20 10/08/20 10/08/20 12:01 16:40 21:17 RDW Lymph % (Auto) [place] % (Auto) Lymph # (Auto) Seg Neutrophils % APTT D-Dimer ABG pH POC ABG pCO2 POC ABG pO2 ABG Oxyhemoglobin ABG Sodium ABG Potassium ABG Chloride ABG Glucose Sodium Chloride BUN Creatinine Glucose POC Glucose 237 H 224 H 216 H Ferritin Ammonia Lactate Dehydrogenase Total Creatine Kinase C-Reactive Protein Albumin Arterial Blood Glucose Arterial Blood Ionized Calcium Urine WBC (Auto) Coronavirus (PCR) 10/09/20 06:01 RDW Lymph % (Auto) [place] % (Auto) Lymph # (Auto) Seg Neutrophils % APTT D-Dimer ABG pH 7.457 H POC ABG pCO2 27.3 L POC ABG pO2 60.4 L ABG Oxyhemoglobin 91.5 L ABG Sodium 126.4 L ABG Potassium 4.6 H ABG Chloride 97.0 L ABG Glucose 150 H Sodium Chloride BUN Creatinine Glucose POC Glucose Ferritin Ammonia Lactate Dehydrogenase Total Creatine Kinase C-Reactive Protein Albumin Arterial Blood Glucose 150 H Arterial Blood Ionized Calcium 4.2 L Urine WBC (Auto) Coronavirus (PCR) Assessment and Plan 85 y/o female with acute respiratory failure secondary to COVID 19 pneumonia. Long discussion with daughter Anitha over the phone x2. After discussing with the other family the do not want to put her on the mechanical ventilator or do resuscitative measures. We will continue to treat as best we can. Continue bipap therapy for now and keep patient NPO. Changed all meds to IV as tolerated including steroids. Overall prognosis is extremely poor as patient is on 100% FiO2 on bipap with sats in 80's. Added some PRN anxiety meds as well. Agree 100% with family decision and expressed this over the phone. Primary nurse witnessed family requests and I notified the primary attending as well as cosigned the necessary documentation.
[2020-10-09] MEDS: CELECOXIB 200 MG CAP PO SCH (11:57)
[2020-10-09] MEDS: DEXAMETHASONE 4 MG TAB PO SCH (11:58)
[2020-10-09] MEDS ORDERED: METOPROLOL TARTRATE 5 MG/5 ML INJ IV SCH (12:00)
[2020-10-09] MEDS ORDERED: dexAMETHasone 4 MG/ML VIAL IV SCH (12:00)
[2020-10-09] MEDS ORDERED: D5W/0.45% NACL 1,000 ML IV SCH (12:00)
[2020-10-09] MEDS ORDERED: FAMOTIDINE 20 MG/2 ML INJ IV SCH (12:00)
[2020-10-09 12:23] VITALS: BP 110/37
[2020-10-09] MEDS: METOPROLOL TARTRATE 25 MG TAB PO SCH (13:39)
--- NOTE | 2020-10-09 14:49 | Death Summary ---
Summary - Providers Date of service: 10/09/20 Consults: 10/05/20 05:48 Consult to Dietitian/Nutrition [CONS] Routine Physician Instructions: Reason For Exam: Reason for Consult: Diet education 10/05/20 06:05 Physical Therapy Evaluation and Treat [CONS] Routine Comment: Reason For Exam: gait training 10/05/20 11:49 Occupational Therapy Evaluate and Treat [CONS] Routine Comment: Reason For Exam: ams 10/07/20 17:18 Consult to Physician [CONS] Routine Comment: Consulting Provider: EDUARDO COBIAN Physician Instructions: Reason For Exam: Covid positive 10/09/20 07:01 Consult to Physician [CONS] Routine Comment: Consulting Provider: GEORGE PARSON Physician Instructions: Reason For Exam: dyspnea 10/09/20 09:49 Consult to Physician [CONS] Routine Comment: Consulting Provider: PAUL LAFLEUR Physician Instructions: Reason For Exam: consult Attending: LUPIS VALERIO - summary Date of admission: 10/06/20 13:17 Date of : 10/09/20 Reason for admission: Acute metabolic encephalopathy Significant findings: Serology positive for COVID-19 Procedures/treatments rendered: Head CT unremarkable except for white matter disease. Vascular disease. Radiograph hip unremarkable knee unremarkable. Disposition: 85 years old with significant comorbid illness including hypertension, diabetes, COPD that was part of the illness from admitting physician. Presented with episode of altered mental status in which patient fell out of bed. Patient was not acting herself. Patient presented to the ED found complain that something was wrong. That time it was thought the patient mental status was secondary to her fall. Patient was presented to telemetry to evaluate possible chest pain is etiology for syncope. Patient got head CT cervical CT x-rays chest x-ray as well all unremarkable. Covid test was obtained because patient required senior living facility. Neurology for [facility] came back positive. Patient subsequently continued to decompensate as evidenced by decreased oxygenation. Patient became hypoxic tachypneic and required BiPAP. Patient did not tolerate BiPAP. Family was called and expressed that patient be DO NOT RESUSCITATE. She was pronounced at approximately 2:45 PM. Also spoke with family at the granddaughter and daughter. At all questions to their satisfaction. - Final diagnosis (1) COVID-19 in immunocompromised patient Note: Final diagnosis: COVID-19 pneumonia in immunocompromised patient with advanced age COPD and diabetes. Hypertension
== END 2020-10-09 14:44 | DRG 177 ==
LOC: ED 01:28 → 3A 04:59 → 4A 08:46 → OBSVTOIN 10-06 13:17 → 3A 10-07 20:17 → CC1 10-09 11:05 → 3A 10-09 11:45
PROVIDERS: ADMIT Hospitalist; ATTEND Internal Medicine
PROC: 5A09357 Assistance with Respiratory Ventilation, Less than 24 Consecutive Hours, Continuous Positive Airway Pressure (ICD-10-PCS; principal; 2020-10-08)
PROC: 4A033R1 Measurement of Arterial Saturation, Peripheral, Percutaneous Approach (ICD-10-PCS; 2020-10-09)
DX: U07.1 COVID-19 (principal); N17.0 Acute kidney failure with tubular necrosis; G93.41 Metabolic encephalopathy; J12.82 Pneumonia due to coronavirus disease 2019; J96.01 Acute respiratory failure with hypoxia; D84.89 Other immunodeficiencies; S09.90XA Unspecified injury of head, initial encounter; K21.9 Gastro-esophageal reflux disease without esophagitis; I10 Essential (primary) hypertension; E11.9 Type 2 diabetes mellitus without complications; W06.XXXA Fall from bed, initial encounter; J44.9 Chronic obstructive pulmonary disease, unspecified; M19.90 Unspecified osteoarthritis, unspecified site; E78.5 Hyperlipidemia, unspecified; Z96.652 Presence of left artificial knee joint; Y93.89 Activity, other specified; Y92.89 Other specified places as the place of occurrence of the external cause; Y99.8 Other external cause status
CPT/HCPCS: 36415; 36600; 70450; 71045; 72125; 80048; 80053; 81001; 82140; 82550; 82553; 82728; 82805; 82962; 83615; 83880; 84484; 85025; 85379; 85610; 85730; 86140; 93005; 94640; 94660; 94760; G0378; A9270-GY; J1100; J1815; J2060; J7030; J8540; U0003